=== PATIENT | female | born 1955 | race Caucasian/White ===

== ENCOUNTER 2020-06-19 02:00 | Outpatient (CLI) | payer MEDICARE, SELFPAY ==
[2020-06-19 17:58] LABS: SARS-CoV-2 RNA PCR Negative
== END 2020-06-19 02:01 | disposition home or self-care (01) ==
LOC: ANHCOVIDDT 02:00
PROVIDERS: PCP Family Medicine; Visit Provider Internal Medicine Gastroenterology
DX: Z01.812 Encounter for preprocedural laboratory examination (principal); Z20.828 Contact with and (suspected) exposure to other viral communicable diseases
CPT/HCPCS: 87635; C9803; U0003

== ENCOUNTER 2020-06-22 01:49 | Day surgery (SDC) | payer MEDICARE, SELFPAY ==
[2020-06-16 12:14] VITALS: BMI 33.3
[2020-06-22 08:33] VITALS: BP 118/84; PULSE 92; RESP 18; TEMP 36.6; O2SAT 97
[2020-06-22] MEDS: LACTATED RINGERS 1,000 ML 150 ML IV CONT (08:37)
--- NOTE | 2020-06-22 09:02 | WPDGICN ---
Assessment and Plan Assessment and plan (1) Encounter for screening colonoscopy: Code(s): Z12.11 - Encounter for screening for malignant neoplasm of colon Status: Acute Assessment and Plan: Plan is for screening colonoscopy is been 10 years since last exam. High-fiber diet advised. Further recommendations will be given after endoscopy. GI Consult Note Consult date/time: 06/22/20 09:02 HPI: Chantal Darnell is a 65 year old female seen in evaluation at the request of Dr Norma Galvez. Patient presents for screening colonoscopy. Her current weight appetite bowel movements are normal. She denies abdominal pain. Family history is noncontributory. Her last colonoscopy was 10 years ago. [facility] Social History Social History (Updated 06/10/20 @ 09:24 by Maria Isabel Ty [facility]) Smoking packs per day: 1 Smoking cigarettes per day: 20.0 Years smoked: 35 Smoking pack-years: 35.00 Smoking status: Former smoker Tobacco type: cigarettes Alcohol intake: never Substance use: never Substance use type: does not use Living arrangements: with family Spiritual care concerns: No Meds Home Medications and Allergies Home Medications Medication Instructions Recorded Confirmed Type atorvastatin 20 mg tablet 20 mg PO DAILY #30 tablet 03/03/20 06/22/20 Rx escitalopram oxalate 20 mg tablet 20 mg PO DAILY #90 tablet 03/08/20 06/22/20 Rx naproxen 500 mg tablet,delayed 500 mg PO BID #180 tablet 03/08/20 06/22/20 Rx release cyclobenzaprine 10 mg tablet 10 mg PO TID PRN #90 tablet 04/15/20 06/22/20 Rx zolpidem 10 mg tablet 10 mg PO .QHS #30 tablet 04/23/20 06/22/20 Rx Allergies Allergy/AdvReac Type Severity Reaction Status Date / Time Sulfa (Sulfonamide Allergy Unknown Skin Verified 06/16/20 12:28 Antibiotics) Reaction Vital Signs Vital Signs - 24 hr 06/22/20 08:33 Temperature 97.8 F Pulse Rate 92 Respiratory Rate 18 Blood Pressure 118/84 Pulse Oximetry 97 Exam Narrative: Exam Narrative: Physical exam reveals patient to be alert. Vital signs stable. HEENT exam unremarkable. Lungs are clear to auscultation and percussion. Heart is without murmur or extra sounds. Abdominal exam bowel sounds are present soft nontender with no organomegaly. Digital external rectal exam is normal.
--- NOTE | 2020-06-22 09:15 | P.PNAN_ITS ---
Anes - Initial Pre Proc Eval Procedure: Operation Date: 06/22/20 09:30 Proposed Procedures p Screening Colonoscopy - Stoney Pedersen MD Date/Time: 06/22/20 09:15 Surgeon: Stoney Pedersen MD Pre Op Diagnosis: neoplasm screening Patient Data Age: 65 Gender: F Height: 5 ft 5 in Weight: 94.6 kg Last Vital Signs Temp 97.8 F 06/22/20 08:33 Pulse 92 06/22/20 08:33 Resp 18 06/22/20 08:33 BP 118/84 06/22/20 08:33 Pulse Ox 97 06/22/20 08:33 Allergies Allergy/AdvReac Type Severity Reaction Status Date / Time Sulfa (Sulfonamide Allergy Unknown Skin Verified 06/16/20 12:28 Antibiotics) Reaction Home Medications Medication Instructions Recorded Confirmed Type atorvastatin 20 mg tablet 20 mg PO DAILY #30 tablet 03/03/20 06/22/20 Rx escitalopram oxalate 20 mg tablet 20 mg PO DAILY #90 tablet 03/08/20 06/22/20 Rx naproxen 500 mg tablet,delayed 500 mg PO BID #180 tablet 03/08/20 06/22/20 Rx release cyclobenzaprine 10 mg tablet 10 mg PO TID PRN #90 tablet 04/15/20 06/22/20 Rx zolpidem 10 mg tablet 10 mg PO .QHS #30 tablet 04/23/20 06/22/20 Rx Patient hx anesthesia problems: none Family hx anesthesia problems: none PMFSH Past Medical History Medical History (Updated 06/22/20 @ 09:14 by Paulo Gregg MD) Major depressive disorder, recurrent, moderate Mixed hyperlipidemia Surgical History Surgical History H/O adenoidectomy H/O breast augmentation H/O colonoscopy H/O hemorrhoidectomy H/O hernia repair History of appendectomy History of bilateral tubal ligation History of tonsillectomy History of uterine suspension procedure Social History Social History (Updated 06/10/20 @ 09:24 by Maria Isabel Ty CMA) Smoking packs per day: 1 Smoking cigarettes per day: 20.0 Years smoked: 35 Smoking pack-years: 35.00 Smoking status: Former smoker Tobacco type: cigarettes Alcohol intake: never Substance use: never Substance use type: does not use Living arrangements: with family Spiritual care concerns: No Anes - Eval Final PreProcedure Day of Procedure 06/22/20 09:15 Patient weight: overweight Heart: regular rate and rhythm Lungs: clear to auscultation Airway: Mallampati scale class II Neurological: alert and oriented Last oral intake: >/= 8 hours ASA classification: II Emergent: no Anesthetic plan: proceed Anesthesia type and monitoring: general GIVS and standard monitoring Informed Consent: The patient's anesthetic plan and its attendant risks and benefits were discussed with the patient/family/POA. Questions were solicited and answers provided to the satisfaction of the patient/family/POA.
[2020-06-22 09:56] VITALS: BP 120/76; PULSE 73; RESP 16; O2SAT 100
[2020-06-22 10:06] VITALS: BP 126/83; PULSE 70; RESP 16; O2SAT 98
[2020-06-22 10:16] VITALS: BP 132/77; PULSE 70; RESP 17; O2SAT 100
== END 2020-06-22 10:39 | disposition home or self-care (01) ==
PROVIDERS: PCP Family Medicine; Visit Provider Internal Medicine Gastroenterology
PROC: 0DJD8ZZ Inspection of Lower Intestinal Tract, Via Natural or Artificial Opening Endoscopic (ICD-10-PCS; CPT 45378; principal; 2020-06-22 09:30)
DX: Z12.11 Encounter for screening for malignant neoplasm of colon (principal); K63.5 Polyp of colon; K64.8 Other hemorrhoids; F32.9 Major depressive disorder, single episode, unspecified; E78.2 Mixed hyperlipidemia; K57.30 Diverticulosis of large intestine without perforation or abscess without bleeding; Z87.891 Personal history of nicotine dependence
CPT/HCPCS: 45385; 88305; J2704; J7120

== ENCOUNTER → 2021-01-05 10:56 | Outpatient (CLI) | payer MEDICARE, SELFPAY ==
--- NOTE | ~2021-01-05 | DEXA_ITS ---
Bone Density Report Name: Chantal Darnell Age: 65 Sex: Female Ethnicity: White Date of : 1955 Indication: postmenopausal; screening for osteoporosis; height loss; Referring Provider: Cindy Ramirze Study: Bone densitometry was performed. Exam Date: January 05, 2021 Accession number: [id number] Bone Density: Region BMD T-score Z-score Classification AP Spine (L1-L4) 0.874 -1.6 0.2 Osteopenia Femoral Neck (Left) 0.818 -0.3 1.3 Normal Total Hip (Left) 0.920 -0.2 1.1 Normal Femoral Neck (Right) 0.826 -0.2 1.3 Normal Total Hip (Right) 0.920 -0.2 1.1 Normal Total Hip Mean 0.920 -0.2 1.1 Normal World Health Organization criteria for BMD impression classify patients as: Normal (T-score at or above -1.0), Osteopenia (T-score between -1.0 and -2.5), or Osteoporosis (T-score at or below -2.5). 10-year Fracture Risk(1): Major Osteoporotic Fracture 6.5% Hip Fracture 0.3% Reported Risk Factors: [place] (), Neck BMD=0.826, BMI=36.4 (1) FRAX(R) Version 3.08. Fracture probability calculated for an untreated patient. Fracture probability may be lower if the patient has received treatment. Clinical Information Provided by Patient: Has used the following medications: Calcium Patient maximum height was 65 Menopause Age: 40 No regular weight bearing exercise Drinks caffeinated beverages Onset of menses at age 13 Number of children 3 Impression: The patient has low bone mass, based on the Total Spine T-score. The patient has an estimated ten-year risk of hip fracture of 0.3% and an estimated ten-year risk of major fracture of 6.5%, based on the WHO FRAX algorithm. Discussion: BONE DENSITY IS LOW AT ONE OR MORE SKELETAL SITES. This patient's lowest T-score is low at one or more skeletal sites. It meets the World Health Organization's (WHO) criteria for ?low bone mass? (T-score between -1.0 and -2.5). The patient's 10-year risk of fracture as calculated by FRAX is less than the threshold where pharmacological therapy is recommended by the National Osteoporosis Foundation (NOF). However, all treatment decisions require clinical judgment and consideration of individual patient factors, including patient preferences, comorbidities, previous drug use, risk factors not captured in the FRAX model (e.g., frailty, falls, vitamin D deficiency, increased bone turnover, interval significant decline in bone density) and possible under or overestimation of fracture risk by FRAX. The patient should follow a healthful lifestyle (good nutrition with adequate calcium and vitamin D, and appropriate weight-bearing exercise). Follow-Up: Consider repeating this study in 2 to 3 years to reassess this patient's status, or sooner if there is some new clinical indication. Reported by: [facility] on 01/05/2021 11:20:00
== END ==
PROVIDERS: PCP Family Medicine; Visit Provider Physician Assistant
DX: Z78.0 Asymptomatic menopausal state (principal); M85.88 Other specified disorders of bone density and structure, other site
CPT/HCPCS: 77080

== ENCOUNTER 2021-02-10 08:28 | Outpatient (CLI) | payer MEDICARE, SELFPAY ==
--- NOTE | ~2021-02-10 | MR_ITS ---
EXAMINATION: MR knee LT wo con DATE: 02/10/2021 09:30 INDICATION: Chronic left knee pain and swelling. Osteoarthritis. TECHNIQUE: Magnetic resonance imaging (MRI) of the left knee was performed without intravenous contra st. Sequences included coronal PD-weighted FSE, coronal PD-weighted FS FSE, sagittal T2-weighted FSE , sagittal PD-weighted FS FSE and axial PD weighted fat saturated FSE. COMPARISON: Left knee radiographs dated 01/04/2021 FINDINGS: Medial compartment: Complex tear of the body and posterior horn of the medial meniscus. Extensive full and near full-thic kness cartilage loss involving significant portion of the medial half of the medial tibial plateau an d majority of the weightbearing medial femoral condyle relatively sparing the posterior most portions of the articular cartilage. Extensive underlying subarticular edema. Mild scattered subarticular cys tic change at the medial side of the medial tibial plateau and at the central weightbearing medial fe moral condyle. Moderate-sized marginal osteophytes are present along the medial femoral condyle. Lateral compartment: Lateral meniscal tear, complex at the anterior horn transitioning to a longitudinal tear plane at the meniscal body extending obliquely to contact the superior articular surface anteriorly and then cros sing the inner free edge to involve the inferior articular surface more posteriorly. There is additio nal more vertically oriented tear involving the inner third of the posterior horn with truncation of the anterior free edge. There is full/near full-thickness cartilage loss along the intercondylar yimi ence of the medial side of the lateral tibial plateau. Posterior predominant partial thickness cartil age loss with scattered mild chondral surface regular date along the weightbearing lateral femoral co ndyle. Patellofemoral compartment: Full/near full-thickness chondral ulceration with underlying minimal cortical irregularity and scatte red subarticular edema at the medial patellar facet. Additional deep chondral fissuring at the patell ar apical ridge with minimal underlying subarticular edema and at the medial most aspect of the later al patellar facet. Partial-thickness chondral ulceration at the cephalad aspect of the lateral trochl ea. Partial-thickness chondral fissuring at the inferior aspect of the medial trochlea and trochlear groove. Ligaments and tendons: Anterior and posterior cruciate ligaments are normal. The medial collateral ligament and fibular estela ateral ligament complex are normal. Mild tendinopathy at the proximal and distal aspects of the christopher lar tendon. Quadriceps tendon is normal. The visualized medial and lateral hamstring tendons as well as the iliotibial band are normal. Fluid: Small to moderate-sized left knee joint effusion with scattered synovitis at the suprapatellar pouch and posterior recesses of the knee. No loose osteochondral bodies identified. Osseous/other: Marrow signal is normal aside from the previous noted degenerative subarticular changes. No fracture or abnormal marrow replacing process. IMPRESSION: 1. Complex tears of the medial and lateral menisci. 2. Tricompartmental osteoarthritis, severe with extensive high-grade chondral malacia in the medial c ompartment and mild in the lateral and patellofemoral compartments with additional high-grade patella r chondromalacia. 3. Likely reactive small to moderate-sized left knee joint effusion. 4. Mild patellar tendinopathy. Reviewed, dictated and finalized at location A. IMPRESSION: 1. Complex tears of the medial and lateral menisci. 2. Tricompartmental osteoarthritis, severe with extensive high-grade chondral m alacia in the medial compartment and mild in the lateral and christopher
== END 2021-02-10 08:29 | disposition home or self-care (01) ==
PROVIDERS: PCP Family Medicine; Visit Provider Orthopaedic Surgery
DX: M17.12 Unilateral primary osteoarthritis, left knee (principal); S83.282A Other tear of lateral meniscus, current injury, left knee, initial encounter; S83.242A Other tear of medial meniscus, current injury, left knee, initial encounter; M25.462 Effusion, left knee
CPT/HCPCS: 73721

== ENCOUNTER 2021-04-06 07:44 | Outpatient (CLI) | payer MEDICARE, SELFPAY ==
--- NOTE | 2021-04-06 08:51 | ECG_ITS ---
Measurements Intervals [place] Rate: 80 P: 33 [place]: 180 QRS: -41 QRSD: 106 T: 13 QT: 398 QTc: 461 Interpretive Statements SINUS RHYTHM LEFT AXIS DEVIATION LOW QRS VOLTAGE IN PRECORDIAL LEADS INCOMPLETE RIGHT BUNDLE BRANCH BLOCK VOLTAGE CRITERIA FOR LVH POOR R WAVE PROGRESSION, ANTERIOR LEADS BORDERLINE T WAVE ABNORMALITY- INFERIOR LEADS BASELINE ARTIFACT- I, II, AVR, AVL BORDERLINE ECG Electronically Signed On 04-06-2021 9:04:14 CDT by Navid Nunes D.O.
[2021-04-06 09:31] LABS: Basophils Absolute Auto 0.1 K/mm3 (0.0-0.1); Basophils Percent Auto 0.7 % (0.2-1.2); Eosinophils Absolute Auto 0.2 K/mm3 (0-0.3); Eosinophils Percent Auto 2.2 % (0-4.4); Hematocrit 41.7 % (37.0-47.0); Hemoglobin 13.8 g/dL (12.0-15.0); Immature Granulocyte Absolute 0.01 K/mm3 (0.00-0.031); Immature Granulocyte Percent A 0.1 % (0-0.5); Lymphocytes Absolute Auto 2.49 K/mm3 (0.9-3.2); Lymphocytes Percent Auto 34.3 % (18.3-44.2); Mean Corpuscular HGB Conc 33.1 g/dl (32-36); Mean Corpuscular Hemoglobin 28.8 pg (26-34); Mean Corpuscular Volume 87.1 fl (80-100); Mean Platelet Volume 10.1 fl (7.4-10.4); Monocytes Absolute Auto 0.6 K/mm3 (0.1-0.6); Monocytes Percent Auto 8.1 % (2.6-8.5); Neutrophils Percent Auto 54.6 % (45.5-73.1); Platelet Count Result 308 k/mm3 (150-375); Red Blood Count 4.79 M/mm3 (4.2-5.4); Red Cell Distribution Width 13.4 % (11.5-14.5); White Blood Count 7.3 K/mm3 (4.5-10.0)
[2021-04-06 09:45] LABS: Estimated Glomerular Filt Rate > 60; Glucose 100 mg/dL (65-110)
[2021-04-06 09:48] LABS: Urine Cotinine NEGATIVE
[2021-04-06 09:57] LABS: Hemoglobin A1C 5.6 % (<5.7)
== END 2021-04-06 07:45 | disposition home or self-care (01) ==
LOC: ANHSURGERY 07:49
PROVIDERS: PCP Family Medicine; Visit Provider Orthopaedic Surgery
DX: Z01.818 Encounter for other preprocedural examination (principal); M17.12 Unilateral primary osteoarthritis, left knee; I45.10 Unspecified right bundle-branch block; Z79.899 Other long term (current) drug therapy
CPT/HCPCS: 80307; 82040; 82565; 82947; 83036; 85025; 86850; 86900; 86901; 87081; 93005

== ENCOUNTER 2021-04-08 09:01 | Outpatient (CLI) | payer MEDICARE, SELFPAY ==
--- NOTE | ~2021-04-08 | NM_ITS ---
EXAMINATION: NM ange stress w perfusion DATE: 04/08/2021 11:31 INDICATION: Encounter for preprocedural examination. TECHNIQUE: Rest images were obtained following intravenous administration of 9.6 mCi Tc99m tetrofosmi n (Myoview). The patient was infused intravenously with Lexiscan (Regadenoson). Then, 30 mCi Tc99m te trofosmin (Myoview) was administered intravenously, and stress images were obtained. Data was reconst ructed into short axis and horizontal and vertical long axis SPECT images. Gated SPECT images were al so obtained. COMPARISON: None. FINDINGS: There is no definite reversible or fixed perfusion abnormality to suggest ischemia or infar ction. There is normal left ventricular chamber size, wall motion and ejection fraction. Left ventr icular ejection fraction measures >70%. IMPRESSION: 1. Normal myocardial perfusion at rest and during stress. 2. Left ventricular ejection fraction measuring >70%. Reviewed, dictated and finalized at location A.
--- NOTE | 2021-04-08 09:16 | EST_ITS ---
Patient Info Name: Chantal Darnell Age: 66 years : 1955 Gender: Female Ht: 64 in Wt: 208 lbs BSA: 2.11 m2 Exam Date: 04/08/2021 10:25 AM Exam Location: [facility] Stress Patient Status: Outpatient Admit Date: 04/08/2021 Staff Ordering Physician: Norma Galvez DO Attending Provider: Norma Galvez DO Exercise Technologist: Marcy Ng RDCS Exercise Physician: Navid Nunes DO Exam Type: CA stress ange w NM Study Info A regadenoson stress test was performed. Summary 1. 1. Negative lexiscan stress test for ischemic ST changes by ECG criteria. 2. 2. Stable hemodynamics throughout the test. 3. 3. Nuclear scan to follow and will be reported separately. Please correlate with it. 4. 4. Patient informed of the above results. Protocol: Lexiscan Stress ECG Details Stage: REST Duration (min): 0 min : 49 sec HR (bpm): 79 SBP (mmHg): 129 DBP (mmHg): 87 Stage: REST Duration (min): 8 min : 33 sec HR (bpm): 79 SBP (mmHg): 129 DBP (mmHg): 87 Stage: STAGE 1 Duration (min): 1 min : 0 sec HR (bpm): 92 SBP (mmHg): 136 DBP (mmHg): 93 Stage: RECOVERY Duration (min): 1 min : 0 sec HR (bpm): 95 SBP (mmHg): 140 DBP (mmHg): 88 Stage: RECOVERY Duration (min): 2 min : 0 sec HR (bpm): 92 SBP (mmHg): 140 DBP (mmHg): 88 Stage: RECOVERY Duration (min): 3 min : 0 sec HR (bpm): 87 SBP (mmHg): 121 DBP (mmHg): 88 Stage: RECOVERY Duration (min): 3 min : 3 sec HR (bpm): 87 SBP (mmHg): 121 DBP (mmHg): 88 Rest HR: 79 bpm Peak HR: 96 bpm Rest Sys BP: 129 mmHg Peak Sys BP: 140 mmHg Max Pred HR: 154 bpm % Max Pred HR: 62 % Target HR: 131 bpm Max RPP: 13,440 bpm*mmHg Termination Reason: Completed protocol Cardiac Symptoms: Shortness of breath Total Time: 1 min : 0 sec Rest [place] BP: 87 mmHg Peak [place] BP: 88 mmHg Total Dose: 0.4 mg Resting ECG Sinus rhythm, IRBBB, PRWP. Stress ECG No ST changes. Arrhythmias None. Report Signatures
== END 2021-04-08 09:02 | disposition home or self-care (01) ==
LOC: ANHCARD 09:05
PROVIDERS: PCP Family Medicine; Visit Provider Family Medicine
DX: Z01.810 Encounter for preprocedural cardiovascular examination (principal); R94.31 Abnormal electrocardiogram [ECG] [EKG]; I27.20 Pulmonary hypertension, unspecified
CPT/HCPCS: 78452; 93017; A9502; J2785

== ENCOUNTER 2021-04-18 00:57 | Day surgery (SDC) | payer MEDICARE, SELFPAY ==
[2021-04-06 08:05] VITALS: BMI 35.2
[2021-04-18] VITALS (17 sets, daily range): BP systolic 105–140; BP diastolic 72–86; PULSE 71–92; RESP 11–18; TEMP 36.1–36.6; O2SAT 92–99
--- NOTE | ~2021-04-18 | XR_ITS ---
EXAMINATION: XR knee LT 2V DATE: 04/18/2021 14:41 INDICATION: Postoperative evaluation following left total knee arthroplasty. TECHNIQUE: Anteroposterior and lateral views of the left knee were obtained. COMPARISON: None. FINDINGS: Left total knee arthroplasty with patellar resurfacing appears well seated and in near anatomic align ment. No fractures identified. Expected postoperative subcutaneous, intramedullary and intra-articul ar gas. IMPRESSION: 1. Left total knee arthroplasty, negative for postoperative purposes. Reviewed, dictated and finalized at location A.
--- NOTE | 2021-04-18 09:26 | WPDANESEPPF ---
Anes - Initial Pre Proc Eval Procedure: Operation Date: 04/18/21 12:00 Proposed Procedures p Left Total Knee Arthroplasty - Daren Mahoney MD Date/Time: 04/18/21 09:26 Surgeon: Daren Mahoney MD Pre Op Diagnosis: OA left knee Patient Data Age: 66 Gender: F Height: 1.64 m Weight: 94.5 kg Allergies Allergy/AdvReac Type Severity Reaction Status Date / Time Sulfa (Sulfonamide Allergy Unknown Skin Verified 04/06/21 07:57 Antibiotics) Reaction/RASH Home Medications Medication Instructions Recorded Confirmed Type calcium carbonate 600 mg calcium 600 mg PO DAILY 12/20/20 04/18/21 History (1,500 mg) tablet blbugkhqepvw-nrqzslby-jrvjycr-folic 1 tablet PO DAILY 12/20/20 04/18/21 History acid 400 mcg-vit K1 20 mcg tablet zolpidem 10 mg tablet 10 mg PO QHS #30 tablet 12/21/20 04/18/21 Rx cholecalciferol (vitamin D3) 50 mcg PO DAILY 04/06/21 04/18/21 History cyclobenzaprine 10 mg PO TID 04/06/21 04/18/21 History escitalopram oxalate 20 mg PO QAM 04/06/21 04/18/21 History atorvastatin 20 mg tablet See Rx Instructions .ROUTE 04/12/21 04/18/21 Rx .COMPLEX #90 tablet mupirocin 2 % topical ointment 1 applic TOPICAL BID #22 g 04/12/21 04/18/21 Rx rivaroxaban 10 mg tablet 10 mg PO DAILY #14 tablet 04/12/21 04/18/21 Rx ECG: Date of Service: 04/06/21 Procedure(s): CA 12 lead EKG Accession Number(s): [id number] cc: ~ Measurements Intervals [place] Rate: 80 P: 33 [place]: 180 QRS: -41 QRSD: 106 T: 13 QT: 398 QTc: 461 Interpretive Statements SINUS RHYTHM LEFT AXIS DEVIATION LOW QRS VOLTAGE IN PRECORDIAL LEADS INCOMPLETE RIGHT BUNDLE BRANCH BLOCK VOLTAGE CRITERIA FOR LVH POOR R WAVE PROGRESSION, ANTERIOR LEADS BORDERLINE T WAVE ABNORMALITY- INFERIOR LEADS BASELINE ARTIFACT- I, II, AVR, AVL BORDERLINE ECG Electronically Signed On 04-06-2021 9:04:14 CDT by Navid Nunes D.O. Other Studies: Exam Date: 04/08/2021 10:25 AM Exam Type: CA stress ange w NM Study Info A regadenoson stress test was performed. Summary 1. 1. Negative lexiscan stress test for ischemic ST changes by ECG criteria. 2. 2. Stable hemodynamics throughout the test. 3. 3. Nuclear scan to follow and will be reported separately. Please correlate with it. 4. 4. Patient informed of the above results. Patient hx anesthesia problems: none Family hx anesthesia problems: none [facility] Past Medical History Medical History (Updated 04/18/21 @ 09:27 by Nba Harding MD) Cataract (~2015) Chronic midline low back pain without sciatica Hepatitis C antibody test negative (09/16/19) Major depressive disorder, recurrent, moderate Migraine Mixed hyperlipidemia Obesity Osteoarthritis of left knee Pulmonary hypertension Surgical History Surgical History H/O adenoidectomy (~1978) H/O breast augmentation (~1989) H/O colonoscopy H/O hemorrhoidectomy H/O hernia repair (~1986) History of appendectomy (~1978) History of bilateral tubal ligation History of tonsillectomy (~1973) History of uterine suspension procedure (~1985) Family History Family History Father Diabetes mellitus Cerebrovascular accident Grandparent Family history of glaucoma Mother Family history of elevated blood lipids Family history of malignant neoplasm Family history of pancreatic cancer Sibling Family history of elevated blood lipids Social History Social History Smoking packs per day: 1 Smoking cigarettes per day: 20.0 Years smoked: 30 Smoking pack-ye
--- NOTE | 2021-04-18 10:21 | WPDHPUPDATE1 ---
History and Physical Update Update Date/Time: 04/18/21 10:21 History and Physical has been reviewed, including an updated exam of the patient. There are NO changes in the patient's condition. Risks, benefits, and alternatives have been discussed and questions answered. Patient agrees to proceed with procedure.
[2021-04-18] MEDS: ACETAMINOPHEN 500 MG TABLET 1000 MG PO ×2 (10:27→19:10)
[2021-04-18] MEDS: LACTATED RINGERS 1,000 ML 30 ML IV CONT ×2 (10:42→15:01)
--- NOTE | 2021-04-18 11:05 | WPDANESPNB ---
Anes - Peripheral Nerve Block Date/Time: 04/18/21 11:05 I have discussed with the patient/family/POA the placement of a peripheral nerve block for post-operative pain management, including associated risks, benefits, complications, and side effects. Alternative methods of post-operative analgesia were detailed. Questions were solicited and answers provided to the satisfaction of the patient/family/POA. Time-Out: A pre-procedural Time-Out was completed immediately before starting the procedure and confirmed: Patient Identification, Site, Procedure, Patient Position and the Availability of Requisite Equipment. Clinical Indications: Acute post-operative pain management requested by the operative surgeon. Nerve Block Insertion Note Anes-nerve block: femoral (20cc) left Patient position: supine Skin prep: chlorhexidine Needle: 22 gauge, stimulating, insulated echogenic needle. Needle length: 80 mm Technique: ultrasound (in plane) Injectate: bupivacaine 0.5% with epi 5 mcg/ml (20cc) Observations: tolerated well Complications: none Procedure start time:: 1055 Procedure end time:: 1100
[2021-04-18] MEDS: TRANEXAMIC ACID 1,000MG/ISO100 1,000 MG/100 ML BAG 200 MG IVPB (11:23)
[2021-04-18] MEDS: ceFAZolin 2 GM/D5W 50 ML 2 GM/50 ML BAG IVPB ×2 (11:47→21:30)
[2021-04-18] MEDS: BUPIVACAINE/EPINEPHRINE 0.25% 10 ML VIAL 60 ML INFILTRATE (12:55)
--- NOTE | 2021-04-18 14:09 | W.PM.PROC2 ---
Procedure Note - Detailed Date of Procedure 04/18/21 Pre-op Diagnosis OA left knee Post-op Diagnosis same Procedure Performed Left total knee replacement Surgeon Daren Mahoney MD [employer] Worker Ofelia Alfonso Anesthesia general and regional ( femoral nerve block) Indications see H&P Description of Procedure The patient was identified and proper site identified. In the preop holding area the anesthesia team performed a left femoral nerve block after which the patient was taken to the operating room and transferred to the OR table positioning supine taking care to pad the torso and extremities. After general anesthetic induction and intubation a nonsterile tourniquet was placed high on the left thigh. The left lower extremity was prepped and draped in the usual sterile fashion. The extremity was exsanguinated and with the knee flexed tourniquet was inflated to 300 mmHg remaining up for approximately 64 minutes. An anterior midline incision was made and a modified medial parapatellar approach was used. Infra and suprapatellar fat pads were excised. Patella was resected leaving 15 mm thickness and prepared for the round three peg component. Using the intramedullary guide the distal femur was cut in the proper orientation for the size 67.5 femoral component. Using the extramedullary guide the tibia was cut perpendicular to the long axis protecting collateral ligaments and popliteal structures. It was sized to a 71. Flexion and extension gaps were balanced. Trial reduction was undertaken and the weight-bearing line was noted to passed through the center of the joint. Proximal tibia was drilled and punched in the proper orientation for the real component. Trial components were removed. The bone surfaces were washed with pulsatile lavage and dried. The real components were cemented simultaneously. The knee was held in extension and the patella held clamped until the cement had cured. Excess cement was removed from the joint. After trialing it was determined that the 12 mm insert gave full range of motion from 0-120 degrees of flexion and the patella tracked in the femoral groove with no lift-off. After final lavage the joint the real 12 E poly insert was placed and secured with a locking bar. A Betadine and saline wash was placed into the wound and allowed to sit for approximately 3 minutes and then evacuated. Periarticular tissues were infiltrated with 60 cc of the arthroplasty solution. Surgicel powder was used in the wound for hemostasis as well. The extensor mechanism was repaired with #2 Vicryl suture and 0 looped PDS suture. Subcu was reapproximated with three 0 Monocryl with to a strata fix and tissue adhesive for the skin. A sterile dressing was applied. She tolerated the procedure well, was awakened and extubated, transferred to the bed and was taken to recovery area in stable condition. There were no known intraoperative complications. Perioperative antibiotics were administered. Estimated Blood Loss 200 Tourniquet Time 64 Drains No Packing No Pathology none sent Complications No immediate complications Condition stable Disposition PACU
[2021-04-18] MEDS: fentaNYL CITRATE INJ (*CRX) 100 MCG/2 ML VIAL 25 MCG IV PUSH ×8 (14:37→15:25)
[2021-04-18] MEDS: HYDROmorphone HCL INJ (*CRX) 1 MG/ML SYR 0.25 MG IV PUSH ×4 (15:32→16:17)
--- NOTE | 2021-04-18 16:44 | PC.NURSE ---
This patient, Chantal Darnell, was admitted to Medical Room 254-01. Patient/family oriented to hospital policies and general routines including ID bracelet, bed and alarms, visiting hours, pain management, procedures, bathroom and other care routines, personal items, smoking policy, room service/diet, and visiting hours. Information on how to activate the Rapid Response Team has been discussed. Patient/Family are encouraged to report perceived risks to care and to ask questions if they do not understand what they are told or what they should do.
[2021-04-18] MEDS: DOCUSATE SODIUM 100 MG CAPSULE PO (18:04)
[2021-04-18] MEDS: CYCLOBENZAPRINE HCL 10 MG TABLET PO (18:04)
[2021-04-18] MEDS: oxyCODONE HCL (*CRX) 5 MG TAB IR PO ×3 (18:05→22:44)
[2021-04-18] MEDS: ZOLPIDEM TARTRATE (*CRX) 5 MG TABLET 10 MG PO (21:30)
[2021-04-19] VITALS (8 sets, daily range): BP systolic 98–128; BP diastolic 59–71; PULSE 88–96; RESP 12–20; TEMP 35.9–36.9; O2SAT 90–98
[2021-04-19] MEDS: oxyCODONE HCL (*CRX) 5 MG TAB IR PO ×9 (00:51→20:43)
[2021-04-19] MEDS: ACETAMINOPHEN 500 MG TABLET 1000 MG PO ×3 (03:33→20:43)
[2021-04-19] MEDS: ceFAZolin 2 GM/D5W 50 ML 2 GM/50 ML BAG IVPB ×2 (03:33→12:20)
[2021-04-19 05:56] LABS: Basophils Percent Auto 0.1 % (0.2-1.2); Hematocrit 35.2 % (37.0-47.0); Hemoglobin 11.6 g/dL (12.0-15.0); Immature Granulocyte Absolute 0.04 K/mm3 (0.00-0.031); Immature Granulocyte Percent A 0.3 % (0-0.5); Lymphocytes Absolute Auto 1.37 K/mm3 (0.9-3.2); Lymphocytes Percent Auto 10.8 % (18.3-44.2); Mean Platelet Volume 9.9 fl (7.4-10.4); Monocytes Absolute Auto 1.4 K/mm3 (0.1-0.6); Monocytes Percent Auto 11.3 % (2.6-8.5); Neutrophils Absolute Auto 9.8 K/mm3 (1.3-6.7); Neutrophils Percent Auto 77.5 % (45.5-73.1); Platelet Count Result 268 k/mm3 (150-375); Red Cell Distribution Width 13.2 % (11.5-14.5); White Blood Count 12.7 K/mm3 (4.5-10.0)
[2021-04-19 05:58] LABS: Anion Gap 8 mmol/L (8-16); Blood Urea Nitrogen 7 mg/dL (7-17); Calcium 8.9 mg/dL (8.4-10.2); Carbon Dioxide 25 mmol/L (22-30); Chloride 101 mmol/L (98-107); Estimated CRCL calculation 87 ml/min; Estimated Glomerular Filt Rate > 60; Glucose 121 mg/dL (65-110); Potassium 3.8 mmol/L (3.4-5.0); Sodium 134 mmol/L (137-145)
--- NOTE | 2021-04-19 07:31 | PM.DS ---
DS: Admitting Diagnosis Admitting Diagnosis osteoarthritis left knee DS: Discharge Diagnosis Discharge Diagnosis (1) History of left knee replacement: Code(s): Z96.652 - Presence of left artificial knee joint Status: Resolved Assessment and Plan: plan discharge home today after second therapy. Follow up two weeks. DS: Summary Hospital Course Reason for hospitalization: Observation after outpatient procedure. Hospital Course: Following the patient's surgery she was admitted to the floor for observation. She is going to be discharged home today with planned follow-up in two weeks. Surgery discussed and instructions reviewed. Status at Discharge Functional status at discharge: uses cane/walker Overall status at discharge: patient is not back to baseline Time Spent with Patient Time attestation: Total time spent providing and/or coordinating discharge services: Exam Const: General: cooperative, no acute distress and alert Nutritional Appearance: other Orientation/consciousness: patient oriented x3 Limitations: no limitations HENMT: Head: normal to inspection Ears: hearing grossly normal bilaterally Face and sinus: face symmetric Mouth: Yes moist mucous membranes Teeth and gingiva: fair dentition Eyes: Alignment and Position: alignment normal and position normal Sclera: sclerae normal Neck: Neck: normal visual inspection and nontender Chest: Chest palpation & inspection: normal inspection of the chest Resp: Effort & Inspection: normal respiratory effort and able to speak in complete sentences GI: Inspection: other ( Nontender, nondistended) Skin: General skin exam: normal color Rashes: no rashes Neuro: General: patient oriented x3 Cognition (Neuro): normal cognition Speech: normal speech Gait exam (Neuro): Other gait observations present Extrem: General: normal to inspection and other Other: Exam of the left knee shows dry dressing. Mild swelling but no bruising. Neurovascular status grossly intact to the left lower extremity. Calves negative. Psych: Appearance: grossly normal Mental Status: mental status grossly normal DS: Data Data Completed and Pending Labs on day of discharge: Labs from last 24 hours 04/19/21 04/19/21 05:32 05:32 WBC 12.7 H RBC 4.00 L Hgb 11.6 L Hct 35.2 L MCV 88.0 MCH 29.0 MCHC 33.0 RDW 13.2 Plt Count 268 MPV 9.9 Immature Gran % (Auto) 0.3 Neut % (Auto) 77.5 H Lymph % (Auto) 10.8 L [place] % (Auto) 11.3 H Eos % (Auto) 0.0 Baso % (Auto) 0.1 L Lymph # (Auto) 1.37 [place] # (Auto) 1.4 H Eos # (Auto) 0.0 Baso # (Auto) 0.0 Abs Immat Gran (auto) 0.04 H Absolute Neuts (auto) 9.8 H Absolute Nucleated RBC 0.0 Nucleated RBC % 0.0 Sodium 134 L Potassium 3.8 Chloride 101 Carbon Dioxide 25 Anion Gap 8 BUN 7 Creatinine 0.60 L Estim Creat Clear Calc 87 Estimated GFR > 60 Glucose 121 H Calcium 8.9 Discharge Plan Discharge Patient Disposition: Home, Self-Care Discharge Instructions: 3 times daily for 20 minutes each time, reclining in bed with ice packs over the incision and a pillow underneath the calf of the affected leg, not under the knee. Your wound is glued so it is okay to get into the shower and get the wound wet in two days. Be sure to read through all the information that came from a my office and the hospital. Most of the answers you will need can be found that material. Call the office with any questions that you cannot find answers to, or concerns you may have. After the Xarelto is completed, start taking one coated 325 mg aspirin daily and do this for four more weeks. Please call [facility] at as soon as possible to verify your follow-up appointment to be seen in 2 weeks. Also, call the office with any orthopedic/surgical related questions prior to follow-up. Be sure to get up and move around several times daily but do not overdo it. Del
--- NOTE | 2021-04-19 07:41 | P.PNAN_ITS ---
Anes - Prog Note Post-Op Date/Time: 04/19/21 07:41 Cardiovascular status: normal Respiratory status: normal Airway patency: baseline Mental status: baseline Post-Op hydration status: normal Vital Signs: Last Vital Signs Temp 36.7 C 04/19/21 06:14 Pulse 96 04/19/21 06:14 Resp 18 04/19/21 06:14 BP 101/59 L 04/19/21 06:14 Pulse Ox 96 04/19/21 06:14 Pain Score (VAS): 09/26 I/O: Intake & Output 04/18/21 04/18/21 04/19/21 15:59 23:59 07:59 Intake Total 1150 540 50 Balance 1150 540 50 Laboratory Tests 04/19/21 05:32 04/19/21 05:32 04/19/21 04/19/21 05:32 05:32 WBC 12.7 H RBC 4.00 L Hgb 11.6 L Hct 35.2 L MCV 88.0 MCH 29.0 MCHC 33.0 RDW 13.2 Plt Count 268 MPV 9.9 Immature Gran % (Auto) 0.3 Neut % (Auto) 77.5 H Lymph % (Auto) 10.8 L [place] % (Auto) 11.3 H Eos % (Auto) 0.0 Baso % (Auto) 0.1 L Lymph # (Auto) 1.37 [place] # (Auto) 1.4 H Eos # (Auto) 0.0 Baso # (Auto) 0.0 Abs Immat Gran (auto) 0.04 H Absolute Neuts (auto) 9.8 H Absolute Nucleated RBC 0.0 Nucleated RBC % 0.0 Sodium 134 L Potassium 3.8 Chloride 101 Carbon Dioxide 25 Anion Gap 8 BUN 7 Creatinine 0.60 L Estim Creat Clear Calc 87 Estimated GFR > 60 Glucose 121 H Calcium 8.9 Post-procedural complaints: none Patient Feedback: Patient satisfied with anesthetic care.
[2021-04-19] MEDS: CALCIUM CARBONATE (OSCAL) 500 MG TABLET PO (09:20)
[2021-04-19] MEDS: ATORVASTATIN 20 MG TABLET PO (09:20)
[2021-04-19] MEDS: CHOLECALCIFEROL 1,000 UNITS TABLET 2000 UNITS PO (09:21)
[2021-04-19] MEDS: THERAPEUTIC MULTIVITAMINS/MINERALS TAB (*BKC) 1 TABLET PO (09:21)
[2021-04-19] MEDS: CYCLOBENZAPRINE HCL 10 MG TABLET PO ×3 (09:21→17:22)
[2021-04-19] MEDS: ESCITALOPRAM OXALATE 10 MG TABLET 20 MG PO (09:21)
[2021-04-19] MEDS: DOCUSATE SODIUM 100 MG CAPSULE PO ×2 (09:21→17:22)
[2021-04-19] MEDS: RIVAROXABAN 10 MG TABLET PO (12:57)
[2021-04-19] MEDS: ZOLPIDEM TARTRATE (*CRX) 5 MG TABLET 10 MG PO (20:43)
[2021-04-20] MEDS: oxyCODONE HCL (*CRX) 5 MG TAB IR PO ×4 (01:01→12:44)
[2021-04-20] MEDS: ACETAMINOPHEN 500 MG TABLET 1000 MG PO ×2 (02:53→10:00)
[2021-04-20 05:09] VITALS: BP 102/67; PULSE 64; RESP 20; TEMP 36.8; O2SAT 90
[2021-04-20] MEDS: CHOLECALCIFEROL 1,000 UNITS TABLET 2000 UNITS PO (08:26)
[2021-04-20] MEDS: THERAPEUTIC MULTIVITAMINS/MINERALS TAB (*BKC) 1 TABLET PO (08:26)
[2021-04-20] MEDS: CALCIUM CARBONATE (OSCAL) 500 MG TABLET PO (08:26)
[2021-04-20] MEDS: ATORVASTATIN 20 MG TABLET PO (08:26)
[2021-04-20] MEDS: ESCITALOPRAM OXALATE 10 MG TABLET 20 MG PO (08:27)
[2021-04-20] MEDS: CYCLOBENZAPRINE HCL 10 MG TABLET PO (08:27)
[2021-04-20] MEDS: DOCUSATE SODIUM 100 MG CAPSULE PO (08:27)
[2021-04-20 10:05] VITALS: BP 102/61; PULSE 91; RESP 14; TEMP 36.3; O2SAT 94
--- NOTE | 2021-04-20 11:31 | PM.PNORT ---
Progress Note: A&P Assessment and Plan (1) History of left knee replacement: Code(s): Z96.652 - Presence of left artificial knee joint Status: Resolved Assessment and Plan: Plan discharge home today. I think that she would benefit from some home health PT and so that will be arranged. Plan follow-up in two weeks as before. Please see yesterday's discharge summary for the remainder of the information. Subjective Subjective Date/Time Seen: 04/20/21 11:31 Post Op day: 2 Principal diagnosis: Status post left total knee replacement Interval history: Patient was struggling with therapy yesterday and was unable to go home. She was also having more issues with pain. She is doing better today. Exam Const: General: cooperative, comfortable and no acute distress Nutritional Appearance: well nourished Extrem: Other: Left knee incision dry. Minimal swelling and no bruising about the left knee. Neurovascular status unremarkable. Objective Data Vital Signs Vital Signs: Vital Signs - 24 hr 04/19/21 13:55 04/19/21 20:00 04/19/21 20:32 Temperature 97.7 F 96.7 F L Pulse Rate 90 88 88 Respiratory Rate 16 20 20 Blood Pressure 98/63 L 106/67 Pulse Oximetry 94 90 90 04/20/21 05:09 04/20/21 10:05 Temperature 98.2 F 97.4 F L Pulse Rate 64 91 Respiratory Rate 20 14 Blood Pressure 102/67 102/61 Pulse Oximetry 90 94 Intake/Output Intake/Output: Intake & Output 04/17/21 04/18/21 04/19/21 04/20/21 23:59 23:59 23:59 23:59 Intake Total 1690 / 1690 100 / 100 530 / 530 Balance 1690 / 1690 100 / 100 530 / 530 Meds/Results Medications: Active Medications Generic Name Dose Route Start Last Admin Trade Name Freq PRN Reason Stop Dose Admin Acetaminophen 1,000 mg 04/18/21 19:00 04/20/21 10:00 Acetaminophen 500 Mg Tablet PO 1,000 mg Q8H LOLY Administration Atorvastatin Calcium 20 mg 04/19/21 09:00 04/20/21 08:26 Atorvastatin 20 Mg Tablet PO 20 mg DAILY LOLY Administration Calcium Carbonate 500 mg 04/19/21 09:00 04/20/21 08:26 Calcium Carbonate (Oscal) 500 Mg Tablet PO 500 mg QAM LOLY Administration Cyclobenzaprine HCl 10 mg 04/18/21 17:00 04/20/21 08:27 Cyclobenzaprine Hcl 10 Mg Tablet PO 10 mg TID LOLY Administration Docusate Sodium 100 mg 04/18/21 17:00 04/20/21 08:27 Docusate Sodium 100 Mg Capsule PO 100 mg BID LOLY Administration Escitalopram Oxalate 20 mg 04/19/21 09:00 04/20/21 08:27 Escitalopram Oxalate 10 Mg Tablet PO 20 mg QAM LOLY Administration Multivitamins/Calcium 1 tablet 04/19/21 09:00 04/20/21 08:26 Therapeutic Multivitamins/Minerals Tab (*Bkc) PO 1 tablet DAILY LOLY Administration Naloxone HCl 0.1 mg 04/18/21 16:29 Naloxone Hcl 0.4 Mg/Ml Vial IV PUSH Q2M PRN Opiate Reversal Ondansetron HCl 4 mg 04/18/21 16:29 Ondansetron Inj 4 Mg/2 Ml Vial IV PUSH Q4H PRN Nausea And Vomiting Oxycodone HCl 5 mg 04/18/21 16:29 04/19/21 15:34 Oxycodone Hcl (*Crx) 5 Mg Tab Ir PO 5 mg Q4H PRN Administration Pain Rated 7-10 Oxycodone HCl 5 mg 04/18/21 17:00 04/20/21 08:26 Oxycodone Hcl (*Crx) 5 Mg Tab Ir PO 5 mg Q4HR LOLY Administration Rivaroxaban 10 mg 04/19/21 12:00 04/19/21 12:57 Rivaroxaban 10 Mg Tablet PO 05/02/21 12:01 10 mg Q24H LOLY Administration Vitamin D 2,000 units 04/19/21 09:00 04/20/21 08:26 Cholecalciferol 1,000 Units Tablet PO 2,000 units DAILY [facility] Administration Zolpidem Tartrate 10 mg 04/18/21 21:00 04/19/21 20:43 Zolpidem Tartrate (*Crx) 5 Mg Tablet PO 10 mg HS [facility] Administration Radiology Results: ITS Impressions Knee X-Ray 04/18/21 15:18 IMPRESSION: 1. Left total knee arthroplasty, negative for postoperative purposes. Quality VTE Prophylaxis VTE prophylaxis: pharmacologic ordered
[2021-04-20] MEDS: RIVAROXABAN 10 MG TABLET PO (12:41)
[2021-04-20 14:00] VITALS: BP 115/65; PULSE 100; RESP 16; TEMP 36.6; O2SAT 93
== END 2021-04-20 15:42 | disposition home health service (06) ==
LOC: ANHSURGERY 09:59 → ANH2MED 04-19 07:13
PROVIDERS: PCP Family Medicine; Visit Provider Orthopaedic Surgery
PROC: (CPT 27447; principal; 2021-04-18 12:00)
DX: M17.12 Unilateral primary osteoarthritis, left knee (principal); G89.18 Other acute postprocedural pain; E78.2 Mixed hyperlipidemia; I27.20 Pulmonary hypertension, unspecified; F33.1 Major depressive disorder, recurrent, moderate; E66.9 Obesity, unspecified; Z68.34 Body mass index [BMI] 34.0-34.9, adult; Z87.891 Personal history of nicotine dependence; Z79.01 Long term (current) use of anticoagulants
CPT/HCPCS: 27447; 64447; 36415; 73560; 80048; 85025; 97110; 97116; 97161; 97165; 97530; 97535; A9270; C1713; C1776; J0690; J1100; J1170; J2250; J2370; J2405; J2704; J3010; J3370; J7120

== ENCOUNTER 2021-05-12 16:40 | Emergency (ER) | payer MEDICARE, SELFPAY ==
--- NOTE | ~2021-05-12 | XR_ITS ---
EXAMINATION: XR abdomen obstructive series DATE: 05/12/2021 17:15 INDICATION: Constipation. TECHNIQUE: Upright and supine views of the abdomen on 4 radiographs were obtained. COMPARISON: Lumbar spine radiographs 11/26/2018 FINDINGS: There are no dilated loops of bowel. There is a moderate volume of stool in the colon. No f ree intraperitoneal gas. Calcifications of the pelvis are likely phleboliths. IMPRESSION: 1. Nonobstructive bowel gas pattern. Reviewed, dictated and finalized at location A.
[2021-05-12 16:49] VITALS: BP 128/87; PULSE 114; RESP 20; TEMP 36.3; O2SAT 97
--- NOTE | 2021-05-12 16:49 | ED.ABDPAIN ---
HPI - Abdominal Pain General Chief Complaint: Abdominal Pain Stated Complaint: Abdominal pain/Need Xray Time Seen by Provider: 05/12/21 16:49 Source: patient and RN notes reviewed History of Present Illness HPI narrative: Patient is a 66-year-old female who presents the urgent care with her spouse with complaints of lower abdominal pain/cramping/bloating for the last 3 to 4 days. Patient states that she has not had a real bowel movement since April 18. States that she has been on pain medication since then due to having left knee surgery. Patient states that she passes small amounts of stool but has not had a normal bowel movement. Denies of any nausea or vomiting. States that she has been on Dulcolax since the surgery and has upped her doses without any improvement. Denies of any blood in the stool. No other acute complaints. No acute distress noted. Patient and spouse aware of the plan of care. Some parts of this dictation were generated by voice recognition software and may contain typographical and/or grammatical inaccuracies. Related Data Home Medications Medication Instructions Recorded Confirmed [id number]-gmjymxbf-yjsunjx-folic 1 tablet PO DAILY 12/20/20 05/03/21 acid 400 mcg-vit K1 20 mcg tablet escitalopram oxalate 20 mg PO QAM 04/06/21 05/03/21 atorvastatin 20 mg PO DAILY 05/12/21 05/12/21 cyclobenzaprine 10 mg PO TID PRN 05/12/21 05/12/21 ondansetron 4 mg PO Q6H PRN 05/12/21 05/12/21 Allergies Allergy/AdvReac Type Severity Reaction Status Date / Time Sulfa (Sulfonamide Allergy Unknown Skin Verified 05/12/21 17:22 Antibiotics) Reaction/RASH Review of Systems Review of Systems: CONSTITUTIONAL: Denies fever, chills, or sweats. EYES: Denies visual changes, redness, or discharge. ENT: Denies rhinorrhea, congestion, sore throat, or otalgia. CARDIOVASCULAR: Denies chest pain, palpitations, or edema. RESPIRATORY: Denies cough or dyspnea. GASTROINTESTINAL: Reports of lower abdominal cramping and constipation GENITOURINARY: Denies dysuria or hematuria. SKIN: Denies rash or itching. MUSCULOSKELETAL: Denies back pain, joint pain, or myalgia. NEUROLOGIC: Denies headache, numbness, or weakness. All other systems reviewed are negative, except as documented in HPI. [facility] Past Medical History Medical History Cataract (~2015) Chronic midline low back pain without sciatica Hepatitis C antibody test negative (09/16/19) Major depressive disorder, recurrent, moderate Migraine Mixed hyperlipidemia Obesity Pulmonary hypertension Surgical History Surgical History H/O adenoidectomy (~1978) H/O breast augmentation (~1989) H/O colonoscopy H/O hemorrhoidectomy H/O hernia repair (~1986) History of appendectomy (~1978) History of bilateral tubal ligation History of left knee replacement April 18, 2021 History of tonsillectomy (~1973) History of uterine suspension procedure (~1985) Family History Family History Father Diabetes mellitus Cerebrovascular accident Grandparent Family history of glaucoma Mother Family history of elevated blood lipids Family history of malignant neoplasm Family history of pancreatic cancer Sibling Family history of elevated blood lipids Social History Social History Smoking packs per day: 1 Smoking cigarettes per day: 20.0 Years smoked: 30 Smoking pack-years: 30.00 Tobacco type: cigarettes Smoking end date: 07/18/16 Alcohol intake: never Alcohol use details: SOCIAL 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
== END 2021-05-12 17:33 | disposition left against medical advice (07) ==
PROVIDERS: Emergency Provider Nurse Practitioner Family; PCP Family Medicine
DX: K59.00 Constipation, unspecified (principal); F17.210 Nicotine dependence, cigarettes, uncomplicated; F32.9 Major depressive disorder, single episode, unspecified; E78.2 Mixed hyperlipidemia; E66.9 Obesity, unspecified; Z68.34 Body mass index [BMI] 34.0-34.9, adult; I27.20 Pulmonary hypertension, unspecified; Z96.652 Presence of left artificial knee joint
CPT/HCPCS: 74019; 99213; G0463

== ENCOUNTER 2021-05-14 05:25 | Inpatient (IN) | payer MEDICARE, SELFPAY ==
[2021-05-14] VITALS (12 sets, daily range): BP systolic 110–145; BP diastolic 75–98; PULSE 79–109; RESP 16–22; TEMP 36–37.3; O2SAT 92–98; BMI 35.2
--- NOTE | ~2021-05-14 | XR_ITS ---
XR abdomen/kub 1V DATE: 05/15/2021 16:25 INDICATION: Umbilical abdominal pain, constipation TECHNIQUE: Portable supine AP views of the abdomen COMPARISON: None FINDINGS: Approximately 1.3 cm calcified splenic artery aneurysm is suggested left upper quadrant. The psoas shadows are intact. No visceromegaly is evident. There is no evidence of bowel obstruction. There is a moderate amount of fecal material in the colon. IMPRESSION: Nonspecific abdomen Reviewed, dictated and finalized at Location A. Reviewed, dictated and finalized at location A. IMPRESSION: Nonspecific abdomen
--- NOTE | ~2021-05-14 | CT_ITS ---
EXAMINATION: CT abdomen pelvis w con DATE: 05/14/2021 06:43 INDICATION: Abdominal pain and constipation TECHNIQUE: Computed tomography (CT) of the abdomen and pelvis was performed with 100 mL Omnipaque-350 intravenous contrast. Automated exposure control and iterative reconstruction technique were employe d. The dose-length product was 1287.77 mGy-cm. COMPARISON: None FINDINGS: Small calcified nodule at the lingula consistent with old granulomatous disease. Mild scattered atele ctasis at the bilateral lung bases. Heart size is normal. Atherosclerotic coronary artery calcific le emily. No pericardial or pleural effusion. Bilateral breast implants. Several small low-attenuation he patic cysts, the largest measuring 1.3 cm. Gallbladder, pancreas, bilateral adrenal glands and kidney s are normal. Splenic calcification consistent with old granulomatous disease. 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 Prominent wall thickening along a 20 cm segment of distal descending and prox imal sigmoid colon consistent with a localized colitis. There are few scattered diverticula including along the region of wall thickening but without focally increased surrounding from trace stranding t o suggest diverticulitis. There is a relatively ahaustral pattern in the more distal descending colon . Small bowel is normal. The appendix is not visualized. No pericecal inflammatory change to suggest acute appendicitis. Bladder, anteverted uterus and left adnexa are unremarkable. 3.2 cm right adnexal cyst. No free intraperitoneal gas or fluid. No pathologically enlarged abdominal or pelvic lymphaden opathy. There is calcified atherosclerosis of the aorta and many of the other arteries. Moderate spon dylosis at the lumbosacral junction. IMPRESSION: 1. Focal colitis along a 20 cm length of distal descending and proximal sigmoid colon most likely eit her infectious or inflammatory in etiology versus less likely ischemic. The distal location and ahaus tral pattern to the more distal sigmoid colon raises the possibility of ulcerative colitis. Reviewed, dictated and finalized at location A. IMPRESSION: 1. Focal colitis along a 20 cm length of distal descending and proximal sigmoid colon most likely either infectious or inflammatory in etiology versus less [place] ischemic. The distal location and ahaustral pattern to the more distal sig moid colon raises the possibility of ulcerative colitis.
--- NOTE | 2021-05-14 05:57 | PC.NURSE ---
pt gave urine sample, not enough for lab to run at this time. pt will attempt to give ore shortly.
[2021-05-14 06:03] LABS: Basophils Absolute Auto 0.1 K/mm3 (0.0-0.1); Basophils Percent Auto 0.6 % (0.2-1.2); Eosinophils Absolute Auto 0.1 K/mm3 (0-0.3); Eosinophils Percent Auto 1.5 % (0-4.4); Hematocrit 42.5 % (37.0-47.0); Hemoglobin 13.5 g/dL (12.0-15.0); Immature Granulocyte Absolute 0.03 K/mm3 (0.00-0.031); Immature Granulocyte Percent A 0.3 % (0-0.5); Lymphocytes Absolute Auto 2.11 K/mm3 (0.9-3.2); Lymphocytes Percent Auto 22.6 % (18.3-44.2); Mean Corpuscular HGB Conc 31.8 g/dl (32-36); Mean Corpuscular Hemoglobin 28.8 pg (26-34); Mean Corpuscular Volume 90.8 fl (80-100); Mean Platelet Volume 9.8 fl (7.4-10.4); Monocytes Percent Auto 10.3 % (2.6-8.5); Neutrophils Percent Auto 64.7 % (45.5-73.1); Platelet Count Result 492 k/mm3 (150-375); Red Blood Count 4.68 M/mm3 (4.2-5.4); Red Cell Distribution Width 14.9 % (11.5-14.5); White Blood Count 9.3 K/mm3 (4.5-10.0)
[2021-05-14 06:17] LABS: Alanine Aminotransferase 25 U/L (4-35); Albumin Level 3.9 g/dL (3.5-5.1); Alkaline Phosphatase 138 U/L (38-126); Anion Gap 9 mmol/L (8-16); Aspartate Amino Transferase 37 U/L (14-36); Bilirubin,Total 0.6 mg/dL (0.2-1.3); Blood Urea Nitrogen 5 mg/dL (7-17); Calcium 9.9 mg/dL (8.4-10.2); Carbon Dioxide 28 mmol/L (22-30); Chloride 97 mmol/L (98-107); Estimated CRCL calculation 85 ml/min; Estimated Glomerular Filt Rate > 60; Glucose 141 mg/dL (65-110); Potassium 2.6 mmol/L (3.4-5.0); Sodium 134 mmol/L (137-145)
--- NOTE | 2021-05-14 06:20 | ECG_ITS ---
Measurements Intervals Royal Rate: 81 P: 90 NE: 178 QRS: -44 QRSD: 107 T: 7 QT: 392 QTc: 457 Interpretive Statements SINUS RHYTHM LEFT AXIS DEVIATION INCOMPLETE RIGHT BUNDLE BRANCH BLOCK LEFT VENTRICULAR HYPERTROPHY AND ST-T CHANGE POOR R WAVE PROGRESSION, ANTERIOR LEADS BORDERLINE T WAVE ABNORMALITY- INFERIOR LEADS BORDERLINE ECG Electronically Signed On 05-14-2021 9:37:10 CDT by Navid Nunes D.O.
--- NOTE | 2021-05-14 06:21 | ED.GENADULT ---
HPI - General Adult General Chief complaint: Unspecified <DO Gayle Ashley Last Filed: 05/14/21 06:27> Stated complaint: constipation <DO Gayle Ashley Last Filed: 05/14/21 06:27> Time Seen by Provider: 05/14/21 06:19 <DO Gayle Ashley Last Filed: 05/14/21 06:27> Source: RN notes reviewed <DO Gayle Ashley Last Filed: 05/14/21 06:27> History of Present Illness HPI narrative: Patient presents emergency department from home for abdominal pain. Patient states that she had knee surgery the beginning of the month is not had a normal bowel movement since April 18 she states that over the past 3 days she has been having some increasing abdominal pain described as cramping she states that she did try taking magnesium citrate and threw this back up she states she has nausea on any narcotic pain medication at this time she denies any fevers or chills chest pain shortness of breath or any other symptoms <DO Gayle Ashley Last Filed: 05/14/21 06:27> Related Data Home medications: Home Medications Medication Instructions Recorded Confirmed gqeaivqrazvr-rorutcrg-cxutxls-folic 1 tablet PO DAILY 12/20/20 05/14/21 acid 400 mcg-vit K1 20 mcg tablet escitalopram oxalate 20 mg PO QAM 04/06/21 05/14/21 atorvastatin 20 mg PO DAILY 05/12/21 05/14/21 aspirin 325 mg BYMOUTH DAILY 05/14/21 05/14/21 <DO Gayle Ashley Last Filed: 05/14/21 06:27> Allergies/adverse reactions: Allergies Allergy/AdvReac Type Severity Reaction Status Date / Time Sulfa (Sulfonamide Allergy Unknown Skin Verified 05/14/21 10:19 Antibiotics) Reaction/RASH <DO Gayle Ashley Last Filed: 05/14/21 06:27> Review of Systems Review of Systems: Gen.: Denies fevers or chills ENT: Denies congestion Respiratory: Denies shortness of breath or cough CV: Denies chest pain or palpitations GI: See HPI Musculoskeletal: Denies back pain or muscle pain Neuro: Denies numbness, tingling, weakness or focal weakness Skin: Denies rash Except as documented, all other systems reviewed and negative <Kiko Don DO - Last Filed: 05/14/21 06:27> [facility] Past Medical History Medical History: Medical History (Updated 05/14/21 @ 18:20 by Juliana Em MD) Cataract (~2015) Chronic midline low back pain without sciatica Hepatitis C antibody test negative (09/16/19) Major depressive disorder, recurrent, moderate Migraine Mixed hyperlipidemia Obesity Pulmonary hypertension <Kiko Don DO - Last Filed: 05/14/21 06:27> Surgical History Surgical History: Surgical History H/O adenoidectomy (~1978) H/O breast augmentation (~1989) H/O colonoscopy H/O hemorrhoidectomy H/O hernia repair (~1986) History of appendectomy (~1978) History of bilateral tubal ligation History of left knee replacement April 18, 2021 History of tonsillectomy (~1973) History of uterine suspension procedure (~1985) <Kiko Don DO - Last Filed: 05/14/21 06:27> Family History Family History: Family History Father Diabetes mellitus Cerebrovascular accident Grandparent Family history of glaucoma Mother Family history of elevated blood lipids Family history of malignant neoplasm Family history of pancreatic cancer Sibling Family history of elevated blood lipids <Kiko Don DO - Last Filed: 05/14/21 06:27> Social History Social History: Social History (Updated 05/14/21 @ 17:44 by Chel Dupont NP) Social History: The patient lives with her . The is a durable power criminal attorney for healthcare. The patient is a full code. The patient has 3 children. Patient is retired from [employer]. The patient is a former smoker. She quit in 2015. She does not use any marijuana alcohol or illicit drugs. Smoking packs per day: 1
--- NOTE | 2021-05-14 06:33 | PC.NURSE ---
called lab to add on a magnesium onto patient at this time
[2021-05-14 06:51] LABS: Magnesium 1.8 mg/dL (1.6-2.3)
[2021-05-14] MEDS: LORazepam INJ (*CRX) 2 MG/ML VIAL 0.5 MG IV PUSH (07:10)
[2021-05-14] MEDS: SODIUM CHLORIDE 0.9% IV 1,000 ML 125 ML (07:23)
[2021-05-14 07:42] LABS: Add Urine Microscopic? NO; Appearance Urine Clear (Clear); Bacteria Urine Trace /hpf; Bilirubin Urine Negative (Negative); Blood Urine Negative (Negative); Color Urine Yellow (Yellow); Glucose Urine UA Negative (Negative); Ketones Urine Negative (Negative); Leukocyte Esterase Ur Negative LEU/UL (Negative); Mucus Urine Heavy /lpf; Nitrate Urine Negative (Negative); Protein Urine Negative (Negative); Squamous Epithelial Cell Urine Many /hpf (Few); Urobilinogen Urine Negative mg/dL (<2.0)
[2021-05-14 07:54] LABS: Specific Grav Ur 1.005 (1.001-1.035)
--- NOTE | 2021-05-14 09:50 | ADMGEN ---
This patient, Chantal Darnell, was admitted to Medical Room 258-01. Patient/family oriented to hospital policies and general routines including ID bracelet, bed and alarms, visiting hours, pain management, procedures, bathroom and other care routines, personal items, smoking policy, room service/diet, and visiting hours. Information on how to activate the Rapid Response Team has been discussed. Patient/Family are encouraged to report perceived risks to care and to ask questions if they do not understand what they are told or what they should do.
[2021-05-14] MEDS: SODIUM CHLORIDE 0.9% IV 1,000 ML 125 ML IV CONT (12:16)
[2021-05-14 16:48] LABS: Anion Gap 6 mmol/L (8-16); Blood Urea Nitrogen 4 mg/dL (7-17); Calcium 8.9 mg/dL (8.4-10.2); Carbon Dioxide 28 mmol/L (22-30); Chloride 105 mmol/L (98-107); Estimated CRCL calculation 100 ml/min; Estimated Glomerular Filt Rate > 60; Glucose 105 mg/dL (65-110); Potassium 2.6 mmol/L (3.4-5.0); Sodium 139 mmol/L (137-145)
[2021-05-14] MEDS: MAGNESIUM SULF 2 GM/WATER 50ML 2 GM/50 ML BAG IVPB (17:13)
--- NOTE | 2021-05-14 17:37 | PM.IMHP ---
H&P: HPI History of Present Illness Date/Time: 05/14/21 17:37Thianthony is a 66-year-old female patient who presented to the emergency room with complaints of abdominal pain. Patient stated that she has been feeling constipated since she had her knee surgery at the beginning of the month. The patient stated she has not had a normal bowel movement since April 18. The patient stated that she has only had small smears. She has had some abdominal cramping and she stated that she tried taking magnesium citrate and then through back up. The patient has not been using any narcotic medication. Patient stated that she is been eating and drinking very little. The patient had abdominal pelvis CT which was read as the following Focal colitis along a 20 cm length of distal descending and proximal sigmoid colon most likely either infectious or inflammatory in etiology versus less likely ischemic. The distal location and ahaustral pattern to the more distal sigmoid colon raises the possibility of ulcerative colitis. Potassium 2.6 and the patient was given IV potassium. Repeat was still 2.6. I added a magnesium on and gave her magnesium IV. I also added Flagyl in the event that she has infectious colitis. The patient is being admitted to observation status on the date of service of 05/14/2021. Chief Complaint: abdominal pain Review of Systems Review of Systems: All systems reviewed & are unremarkable except as noted in HPI and below Constitutional: Constitutional: Reports as per HPI and Reports no additional constitutional complaints Eyes: Eyes: Reports as per HPI and Reports no additional eye complaints ENT: Reports system reviewed and no additional complaints, except as documented and Reports Normal hearing present Cardiovascular: Cardiovascular: Reports no additional cardiovascular complaints Respiratory: Respiratory: Reports no additional respiratory complaints and Reports no additional respiratory complaints Gastrointestinal: Gastrointestinal: Reports as per HPI and Reports no additional gastrointestinal complaints Musculoskeletal: Musculoskeletal: Reports no additional musculoskeletal complaints Integumentary/Breasts: Skin/Breast: Reports system reviewed and no additional complaints, except as docu and Reports as per HPI Neurologic: Reports system reviewed and no additional complaints, except as documented, Reports as per HPI and Reports Normal hearing present Psychiatric: Psychiatric: Reports no additional psychiatric complaints and Reports as per HPI Endocrine: Endocrine: Reports no additional endocrine complaints Hematologic/Lymphatic: Hematologic/Lymphatic: Reports no additional hematologic/lymphatic complaints Allergic/Immunologic: Allergic/Immunologic: Reports no additional allergic/immunologic complaints [facility] Past Medical History Medical History (Updated 05/14/21 @ 17:48 by Chel Dupont NP) Cataract (~2015) Chronic midline low back pain without sciatica Hepatitis C antibody test negative (09/16/19) Major depressive disorder, recurrent, moderate Migraine Mixed hyperlipidemia Obesity Pulmonary hypertension Surgical History Surgical History H/O adenoidectomy (~1978) H/O breast augmentation (~1989) H/O colonoscopy H/O hemorrhoidectomy H/O hernia repair (~1986) History of appendectomy (~1978) History of bilateral tubal ligation History of left knee replacement April 18, 2021 History of tonsillectomy (~1973) History of uterine suspension procedure (~1985) Family History Family History Father Diabetes mellitus Cerebrovascular accident Grandparent Family history of glaucoma Mother Family history of elevated blood lipids Family history of malignant neoplasm Family history of pancreatic cancer Sibling Family history of elevated blood lipids Social History Social History (Updated 05/14/21 @ 17:44
[2021-05-14] MEDS: BISACODYL 10 MG SUPPOSITORY RECTAL (17:57)
[2021-05-14] MEDS: POTASSIUM CHLORIDE 20 MEQ TABLET 40 MEQ PO (17:57)
[2021-05-14] MEDS: metroNIDAZOLE 500 MG/ISO 100ML 500 MG/100 ML BAG 100 MG IVPB ×2 (18:21→23:50)
[2021-05-14] MEDS: KCL 20MEQ/0.9% SOD CHL 1,000 ML 100 ML IV CONT (19:24)
[2021-05-14] MEDS: ZOLPIDEM TARTRATE (*CRX) 5 MG TABLET 10 MG PO (20:51)
[2021-05-14] MEDS: SENNOSIDES 8.6 MG TABLET PO (20:54)
[2021-05-15] VITALS (9 sets, daily range): BP systolic 129–137; BP diastolic 52–80; PULSE 80–105; RESP 16; TEMP 36.1–37.3; O2SAT 93–97
[2021-05-15] MEDS: metroNIDAZOLE 500 MG/ISO 100ML 500 MG/100 ML BAG 100 MG IVPB ×3 (05:18→17:35)
[2021-05-15] MEDS: KCL 20MEQ/0.9% SOD CHL 1,000 ML 100 ML IV CONT (05:18)
[2021-05-15 05:37] LABS: Basophils Absolute Auto 0.1 K/mm3 (0.0-0.1); Basophils Percent Auto 1.1 % (0.2-1.2); Eosinophils Absolute Auto 0.1 K/mm3 (0-0.3); Hemoglobin 11.5 g/dL (12.0-15.0); Immature Granulocyte Absolute 0.02 K/mm3 (0.00-0.031); Immature Granulocyte Percent A 0.3 % (0-0.5); Lymphocytes Absolute Auto 1.86 K/mm3 (0.9-3.2); Lymphocytes Percent Auto 28.7 % (18.3-44.2); Mean Corpuscular HGB Conc 31.1 g/dl (32-36); Mean Corpuscular Volume 93.2 fl (80-100); Mean Platelet Volume 9.9 fl (7.4-10.4); Monocytes Absolute Auto 0.7 K/mm3 (0.1-0.6); Monocytes Percent Auto 10.7 % (2.6-8.5); Neutrophils Absolute Auto 3.7 K/mm3 (1.3-6.7); Neutrophils Percent Auto 57.2 % (45.5-73.1); Platelet Count Result 380 k/mm3 (150-375); Red Blood Count 3.97 M/mm3 (4.2-5.4); Red Cell Distribution Width 14.9 % (11.5-14.5); White Blood Count 6.5 K/mm3 (4.5-10.0)
[2021-05-15 05:58] LABS: Alanine Aminotransferase 18 U/L (4-35); Albumin Level 2.9 g/dL (3.5-5.1); Alkaline Phosphatase 97 U/L (38-126); Anion Gap 7 mmol/L (8-16); Aspartate Amino Transferase 27 U/L (14-36); Bilirubin,Total 0.3 mg/dL (0.2-1.3); Blood Urea Nitrogen 3 mg/dL (7-17); Calcium 8.5 mg/dL (8.4-10.2); Carbon Dioxide 25 mmol/L (22-30); Chloride 105 mmol/L (98-107); Estimated CRCL calculation 102 ml/min; Estimated Glomerular Filt Rate > 60; Glucose 108 mg/dL (65-110); Potassium 2.8 mmol/L (3.4-5.0); Sodium 137 mmol/L (137-145)
[2021-05-15] MEDS: POTASSIUM CHLORIDE 20 MEQ TABLET 40 MEQ PO (06:39)
[2021-05-15] MEDS: ATORVASTATIN 20 MG TABLET PO (08:29)
[2021-05-15] MEDS: ASPIRIN 325 MG TABLET BY MOUTH (08:29)
[2021-05-15] MEDS: THERAPEUTIC MULTIVITAMINS/MINERALS TAB (*BKC) 1 TABLET PO (08:30)
[2021-05-15] MEDS: ESCITALOPRAM OXALATE 10 MG TABLET 20 MG PO (08:30)
[2021-05-15] MEDS: polyethylene glycoL 3350 17 GM POWD.PACK PO (08:30)
[2021-05-15] MEDS: ENOXAPARIN 40 MG/0.4 ML SYRINGE SUB-Q (08:30)
[2021-05-15] MEDS: BISACODYL 5 MG TABLET EC 10 MG PO (10:19)
[2021-05-15 13:29] LABS: Anion Gap 8 mmol/L (8-16); Blood Urea Nitrogen 3 mg/dL (7-17); Calcium 8.9 mg/dL (8.4-10.2); Carbon Dioxide 24 mmol/L (22-30); Chloride 104 mmol/L (98-107); Estimated CRCL calculation 102 ml/min; Estimated Glomerular Filt Rate > 60; Glucose 157 mg/dL (65-110); Potassium 3.2 mmol/L (3.4-5.0); Sodium 136 mmol/L (137-145)
[2021-05-15] MEDS: ONDANSETRON INJ 4 MG/2 ML VIAL IV PUSH (15:40)
[2021-05-15] MEDS: CIPROFLOXACIN 400 MG/D5W 200ML 200 ML 200 MG IVPB (16:06)
[2021-05-15] MEDS: BISACODYL 10 MG SUPPOSITORY RECTAL (16:11)
--- NOTE | 2021-05-15 16:54 | PM.IMPN ---
Progress Note: A&P Assessment and Plan (1) Colitis: Code(s): K52.9 - Noninfective gastroenteritis and colitis, unspecified Status: Acute Assessment and Plan: CT of the abdomen as above. started on Flagyl and Cipro IV. follow-up with GI outpatient. Abd Xray showed some impaction Will consider small bowel follow through Consider GI consult (2) Hypokalemia: Code(s): E87.6 - Hypokalemia Status: Acute Assessment and Plan: Continue with IV maintenance potassium. Repeat 2.8 80mcq given oral and IV Repeat 3.2 40mcg IV given Check in the am (3) Major depressive disorder, recurrent, moderate: Code(s): F33.1 - Major depressive disorder, recurrent, moderate Status: Acute Assessment and Plan: continue with home medication of Lexapro (4) Mixed hyperlipidemia: Code(s): E78.2 - Mixed hyperlipidemia Status: Chronic Assessment and Plan: continue with atorvastatin (5) Anxiety: Code(s): F41.9 - Anxiety disorder, unspecified Status: Acute Assessment and Plan: continue Lexapro Ativan 0.25mg IV once Time Spent With Patient Time with patient: Greater than 35 minutes Subjective Date/time seen: 05/15/21 13:00pm & 16:00pm Interval history: Patient is 66-year-old female who is here for constipation/hypokalemia. Patient this morning stated that she was feeling a lot better and she was able to have a decent bowel movement. She also had a knee replacement earlier done in April which she stated she has been off her for pain meds for at least 4 days. She also states that she is still having issues with cramping and she has been having a lot of liquid stool. She has also been having issues with nausea today but has not had any vomiting. She also has not been really eating well. She denies chest pain, shortness of breath, fevers, sweats, chills. Review of Systems Review of Systems: All systems reviewed & are unremarkable except as noted in HPI and below Exam Const: General: cooperative, healthy appearing, comfortable, no acute distress, well developed, alert, awake, Physically active and lethargic Nutritional Appearance: average body habitus and well nourished Orientation/consciousness: oriented to person, oriented to place, oriented to time and patient oriented x3 Limitations: no limitations HENMT: Head: normal to inspection, No palpable skull fracture present, normocephalic and atraumatic Ears: hearing grossly normal bilaterally and external ears normal General nose exam: Normal external nose present and Normal nares present Eyes: General: appearance normal, both eyes and all related structures Alignment and Position: alignment normal Periorbital: periorbital findings normal Eyelids: eyelids normal Conjunctivae: conjunctivae normal Sclera: sclerae normal Cornea: corneas normal Pupils: Equal, round and reactive pupils present EOM: EOMs intact bilaterally Neck: Neck: normal visual inspection, full ROM, no lymphadenopathy, trachea midline and supple Thyroid: thyroid normal Carotids: normal carotid upstroke Lymphatic: no lymphadenopathy noted Chest: Chest palpation & inspection: normal inspection of the chest Resp: Effort & Inspection: normal respiratory effort Auscultation: clear to auscultation bilaterally Percussion: percussion normal Cardio: Palpation: normal PMI Rate: regular rate Rhythm: regular rhythm Heart sounds: S1 normal heart sound present and S2 normal heart sound present Peripheral pulses: Peripheral pulses 2+ throughout GI: Inspection: normal to inspection Auscultation: normal bowel sounds Rectal Exam: deferred Skin: General skin exam: normal color Lesions: no lesions Rashes: no rashes Trauma: no lacerations or abrasions Wounds: no wounds Hair: normal Nails: normal Neuro: General: oriented to person, oriented to place, oriented to time and patient oriented x3
[2021-05-15] MEDS: LORazepam INJ (*CRX) 2 MG/ML VIAL 0.25 MG IV PUSH (16:57)
[2021-05-15] MEDS: ZOLPIDEM TARTRATE (*CRX) 5 MG TABLET 10 MG PO (22:23)
[2021-05-16] VITALS (7 sets, daily range): BP systolic 132–146; BP diastolic 81–88; PULSE 83–102; RESP 16–18; TEMP 36–36.7; O2SAT 94–97
[2021-05-16] MEDS: metroNIDAZOLE 500 MG/ISO 100ML 500 MG/100 ML BAG 100 MG IVPB ×5 (00:26→23:44)
[2021-05-16] MEDS: KCL 20MEQ/0.9% SOD CHL 1,000 ML 100 ML IV CONT ×2 (01:47→15:20)
[2021-05-16 05:56] LABS: Basophils Absolute Auto 0.1 K/mm3 (0.0-0.1); Basophils Percent Auto 0.8 % (0.2-1.2); Eosinophils Absolute Auto 0.2 K/mm3 (0-0.3); Eosinophils Percent Auto 2.6 % (0-4.4); Hematocrit 35.8 % (37.0-47.0); Hemoglobin 11.2 g/dL (12.0-15.0); Immature Granulocyte Absolute 0.02 K/mm3 (0.00-0.031); Immature Granulocyte Percent A 0.3 % (0-0.5); Lymphocytes Absolute Auto 1.85 K/mm3 (0.9-3.2); Mean Corpuscular HGB Conc 31.3 g/dl (32-36); Mean Corpuscular Hemoglobin 28.8 pg (26-34); Monocytes Absolute Auto 0.7 K/mm3 (0.1-0.6); Monocytes Percent Auto 10.3 % (2.6-8.5); Neutrophils Absolute Auto 3.8 K/mm3 (1.3-6.7); Platelet Count Result 364 k/mm3 (150-375); Red Blood Count 3.89 M/mm3 (4.2-5.4); Red Cell Distribution Width 14.9 % (11.5-14.5); White Blood Count 6.6 K/mm3 (4.5-10.0)
[2021-05-16 06:07] LABS: Alanine Aminotransferase 17 U/L (4-35); Alkaline Phosphatase 87 U/L (38-126); Anion Gap 5 mmol/L (8-16); Aspartate Amino Transferase 26 U/L (14-36); Bilirubin,Total 0.4 mg/dL (0.2-1.3); Blood Urea Nitrogen 2 mg/dL (7-17); Calcium 8.9 mg/dL (8.4-10.2); Carbon Dioxide 25 mmol/L (22-30); Chloride 106 mmol/L (98-107); Estimated CRCL calculation 87 ml/min; Estimated Glomerular Filt Rate > 60; Glucose 107 mg/dL (65-110); Magnesium 1.7 mg/dL (1.6-2.3); Potassium 3.7 mmol/L (3.4-5.0); Sodium 136 mmol/L (137-145)
[2021-05-16] MEDS: ASPIRIN 325 MG TABLET BY MOUTH (09:01)
[2021-05-16] MEDS: POTASSIUM CHLORIDE 20 MEQ TABLET.ER 40 MEQ PO (09:01)
[2021-05-16] MEDS: MAGNESIUM SULF 2 GM/WATER 50ML 2 GM/50 ML BAG IVPB (09:01)
[2021-05-16] MEDS: ATORVASTATIN 20 MG TABLET PO (09:01)
[2021-05-16] MEDS: ESCITALOPRAM OXALATE 10 MG TABLET 20 MG PO (09:02)
[2021-05-16] MEDS: polyethylene glycoL 3350 17 GM POWD.PACK PO (09:02)
[2021-05-16] MEDS: THERAPEUTIC MULTIVITAMINS/MINERALS TAB (*BKC) 1 TABLET PO (09:02)
[2021-05-16] MEDS: ENOXAPARIN 40 MG/0.4 ML SYRINGE SUB-Q (09:02)
[2021-05-16] MEDS: SENNOSIDES 8.6 MG TABLET PO (09:03)
--- NOTE | 2021-05-16 11:00 | PC.NURSE ---
called and requesting consult with Dr. Mahoney due to patient having knee replacement on April 17. 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 Incision to knee well approximated without s/s of infection noted. Patient ambulating with walker and standby assistance.
[2021-05-16] MEDS: LACTULOSE 20 GM/30 ML UDC 30 GM PO ×2 (13:16→15:21)
[2021-05-16] MEDS: ONDANSETRON INJ 4 MG/2 ML VIAL IV PUSH ×2 (13:19→16:49)
--- NOTE | 2021-05-16 15:08 | PM.IMPN ---
Progress Note: A&P Assessment and Plan (1) Colitis: Code(s): K52.9 - Noninfective gastroenteritis and colitis, unspecified Status: Acute Assessment and Plan: CT of the abdomen as above. started on Flagyl and Cipro IV. Abd Xray showed impaction Will consider small bowel follow through GI consulted for further recommendation thank you (2) Constipation: Code(s): K59.00 - Constipation, unspecified Status: Acute Assessment and Plan: She has been constipated for weeks She has been given suppositories, miralax, bisacodyl, and an enema She has been started on lactulose x4 doses, only 2 doses given Lactulose enema was given at 1600 No response to enema Relistor SQ was given (3) Hypokalemia: Code(s): E87.6 - Hypokalemia Status: Acute Assessment and Plan: Continue with IV maintenance potassium. k is 3.7 today Check in the am (4) Major depressive disorder, recurrent, moderate: Code(s): F33.1 - Major depressive disorder, recurrent, moderate Status: Acute Assessment and Plan: continue with home medication of Lexapro (5) Mixed hyperlipidemia: Code(s): E78.2 - Mixed hyperlipidemia Status: Chronic Assessment and Plan: continue with atorvastatin will place on hold for now (6) Anxiety: Code(s): F41.9 - Anxiety disorder, unspecified Status: Acute Assessment and Plan: continue Lexapro Ativan 0.25mg IV once Time Spent With Patient Time with patient: Greater than 35 minutes Subjective Date/time seen: 05/16/21 15:00 Interval history: Patient is a 66 year old female that presented in the for constipation and hypokalemia. She still is not doing well again today. She stated that she has had one bowel movement since admission, but she is still complaining of abdominal pain, nausea, and severe constipation. Today patient still has not had a bowel movement. She has been given 2 suppositories, 10mg bisacodyl PO, soap suds enema, sennakot, and multiple doses of miralax with no success. She is very uncomfortable and the xrays shows major impaction. She does deny chest pain, shortness of breath, vomiting, weakness, fatigue, sweats, fevers, chills. Went to reevaluate patient at 1445. At that time patient received one dose of lactulose and is scheduled for a second dose at 1500. Dr. Land reviewed the case with me and gave recommendations of continuing the lactulose PO, and that if further issues to switch patient to lactulose enema. Patient still had not had a bowel movement at that time. At 1600, received call from nursing that patient was dry heaving and vomiting after the second dose of lactulose. At that time Reglan was given one time for break through nausea and vomiting. Dr. Land was again updated about the patients condition at that time. Recommendations of lactulose enema at that time. At 2030 received another call about patient having more nausea and vomiting, with no success with the lactulose enema. It was said by nursing that the patient at the time of the enema was successful in holding, but had no response at that time. Another dose of Reglan was given at that time for break though nausea and vomiting at that time. Dr. Thao was called, case was reviewed with him at that time. Plan of care was reviewed and it was suggested that the patient be placed NPO and Relistor SQ to be given at this time. Dr. Thao did go and see the patient according to nursing. Recieved communication of GI consult at that time. Review of Systems Review of Systems: All systems reviewed & are unremarkable except as noted in HPI and below Exam Const: General: cooperative, healthy appearing, comfortable, no acute distress, well developed, alert, awake, Physically active and anxious Nutritional Appearance: average body habitus and well nourished
--- NOTE | 2021-05-16 16:00 | PC.NURSE ---
Patient nauseated and vomiting after receiving second dose of po Lactulose. Notified Claudio Morin ATTENDING [facility]BULATORY CARE and orders received.
[2021-05-16] MEDS: CIPROFLOXACIN 400 MG/D5W 200ML 200 ML 200 MG IVPB (16:41)
[2021-05-16] MEDS: METOCLOPRAMIDE HCL INJ 10 MG/2 ML VIAL IV PUSH ×2 (16:41→19:59)
[2021-05-16] MEDS: LACTULOSE ENEMA 200 GM/1,000 ML ENEMA RECTAL (18:27)
[2021-05-16] MEDS: PROCHLORPERAZINE EDISYLATE 10 MG/2 ML VIAL IV PUSH (21:59)
[2021-05-16] MEDS: METHYLNALTREXONE 12 MG/0.6 ML VIAL SUB-Q (21:59)
[2021-05-17] MEDS: KCL 20MEQ/0.9% SOD CHL 1,000 ML 100 ML IV CONT (04:29)
[2021-05-17 05:29] VITALS: BP 158/88; PULSE 101; RESP 18; TEMP 36.2; O2SAT 96
[2021-05-17] MEDS: metroNIDAZOLE 500 MG/ISO 100ML 500 MG/100 ML BAG 100 MG IVPB ×4 (06:18→23:05)
[2021-05-17 07:19] LABS: Basophils Percent Auto 0.2 % (0.2-1.2); Eosinophils Percent Auto 0.1 % (0-4.4); Hematocrit 40.5 % (37.0-47.0); Hemoglobin 12.5 g/dL (12.0-15.0); Immature Granulocyte Absolute 0.06 K/mm3 (0.00-0.031); Immature Granulocyte Percent A 0.5 % (0-0.5); Lymphocytes Absolute Auto 0.95 K/mm3 (0.9-3.2); Lymphocytes Percent Auto 7.6 % (18.3-44.2); Mean Corpuscular HGB Conc 30.9 g/dl (32-36); Mean Corpuscular Hemoglobin 28.9 pg (26-34); Mean Corpuscular Volume 93.8 fl (80-100); Mean Platelet Volume 9.9 fl (7.4-10.4); Monocytes Absolute Auto 0.7 K/mm3 (0.1-0.6); Monocytes Percent Auto 5.8 % (2.6-8.5); Neutrophils Absolute Auto 10.7 K/mm3 (1.3-6.7); Neutrophils Percent Auto 85.8 % (45.5-73.1); Platelet Count Result 374 k/mm3 (150-375); Red Blood Count 4.32 M/mm3 (4.2-5.4); Red Cell Distribution Width 14.8 % (11.5-14.5); White Blood Count 12.4 K/mm3 (4.5-10.0)
[2021-05-17 07:34] LABS: Alanine Aminotransferase 20 U/L (4-35); Albumin Level 3.3 g/dL (3.5-5.1); Alkaline Phosphatase 106 U/L (38-126); Anion Gap 7 mmol/L (8-16); Aspartate Amino Transferase 32 U/L (14-36); Bilirubin,Total 0.5 mg/dL (0.2-1.3); Blood Urea Nitrogen 3 mg/dL (7-17); Calcium 9.2 mg/dL (8.4-10.2); Carbon Dioxide 25 mmol/L (22-30); Chloride 106 mmol/L (98-107); Estimated CRCL calculation 87 ml/min; Estimated Glomerular Filt Rate > 60; Glucose 138 mg/dL (65-110); Magnesium 1.9 mg/dL (1.6-2.3); Potassium 4.3 mmol/L (3.4-5.0); Sodium 138 mmol/L (137-145)
[2021-05-17] MEDS: ENOXAPARIN 40 MG/0.4 ML SYRINGE SUB-Q (09:32)
[2021-05-17 10:12] VITALS: BP 138/89; PULSE 98; O2SAT 100
[2021-05-17] MEDS: LORazepam INJ (*CRX) 2 MG/ML VIAL 0.25 MG IV PUSH (12:11)
[2021-05-17 14:00] VITALS: BP 146/70; PULSE 83; RESP 18; TEMP 35.9; O2SAT 93
--- NOTE | 2021-05-17 14:18 | WPDGICN ---
Assessment and Plan Assessment and plan (1) Constipation: Qualifiers: Constipation type: unspecified constipation type Qualified Code(s): K59.00 - Constipation, unspecified Code(s): K59.00 - Constipation, unspecified Status: Acute Assessment and Plan: Patient with significant constipation fact may have a fecal impaction. Likely related to decreased mobility and pain medications after her recent knee surgery. Plan is for continued use of laxatives and cleansing enemas. Likely may take several days for this to total be cleanse. Continue supportive care for now. (2) Colitis: Code(s): K52.9 - Noninfective gastroenteritis and colitis, unspecified Status: Acute Assessment and Plan: CT scan suggestive of colitis. Patient has no localized tenderness or other reason to think a long-term nature such as colitis. Recent colonoscopy within the last year was unremarkable making this a highly unlikely. Changes seen on CT scan most likely related to impaction and constipation. Would recommend conservative evaluation at this time. I understand she is on empiric antibiotics and this is okay, but no evidence for infection clinically at this time. (3) History of left knee replacement: Code(s): Z96.652 - Presence of left artificial knee joint Status: Resolved GI Consult Note Consult date/time: 05/17/21 14:18 HPI: Chantal Darnell is a 66 year old female I am asked to see because of fecal impaction. Patient known to me from June 2020 at that time we did a screening colonoscopy a benign colon polyp was identified. Patient reports that she underwent a left knee replacement approximately a month ago. Since that time has had decreased mobility and pain medications. She began to have abdominal pain along with decreased frequency of bowel movements. She presented the hospital with constipation as CT scan confirmed fecal impaction as well as possible inflammation in the left descending colon. Patient reports at the time of admission her potassium was quite low. She has had some minimal improvement with some laxatives and enemas. She denies any bleeding or weight loss. Review of Systems Review of Systems: All systems reviewed & are unremarkable except as noted in HPI and below [facility] Past Medical History Medical History (Updated 05/16/21 @ 15:16 by SILVINA March) Cataract (~2015) Chronic midline low back pain without sciatica Hepatitis C antibody test negative (09/16/19) Major depressive disorder, recurrent, moderate Migraine Mixed hyperlipidemia Obesity Pulmonary hypertension Surgical History Surgical History H/O adenoidectomy (~1978) H/O breast augmentation (~1989) H/O colonoscopy H/O hemorrhoidectomy H/O hernia repair (~1986) History of appendectomy (~1978) History of bilateral tubal ligation History of left knee replacement April 18, 2021 History of tonsillectomy (~1973) History of uterine suspension procedure (~1985) Family History Family History Father Diabetes mellitus Cerebrovascular accident Grandparent Family history of glaucoma Mother Family history of elevated blood lipids Family history of malignant neoplasm Family history of pancreatic cancer Sibling Family history of elevated blood lipids Social History Social History (Updated 05/14/21 @ 17:44 by Chel Dupont NP) Social History: The patient lives with her . 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 The patient is a full code. The patient has 3 children. Patient is retired from [employer] The patient is a former smoker. She quit in 2016. She does not use any marijuana alcohol or illicit drugs. Smoking packs per day: 1 Smoking cigarettes per day: 20.0 Years smoked: 30 Smoking pack-years: 30.00 Smoking status: Former smoker
--- NOTE | 2021-05-17 15:12 | P.PNIM_ITS ---
Progress Note: A&P Assessment and Plan (1) Colitis: Code(s): K52.9 - Noninfective gastroenteritis and colitis, unspecified Status: Acute Assessment and Plan: * CT of the abdomen as above. * started on Flagyl and Cipro IV. * Abd Xray showed impaction * GI consulted for further recommendation thank you (2) Constipation: Code(s): K59.00 - Constipation, unspecified Status: Acute Assessment and Plan: * She has been constipated for weeks * She has been given suppositories, miralax, bisacodyl, and an enema * She has been started on lactulose x4 doses, only 2 doses given * Lactulose enema was given at 1600 * No response to enema * recommendations for laxatives and enemas * Lactulose 30gm BID and will order soap suds enema as well * Consider another lactulose enema * Relistor SQ was given (05/16/21) * Soapsuds enema BID ordered (3) Hypokalemia: Code(s): E87.6 - Hypokalemia Status: Acute Assessment and Plan: * Continue with IV maintenance potassium. * k is 4.3 today * Check in the am (4) Major depressive disorder, recurrent, moderate: Code(s): F33.1 - Major depressive disorder, recurrent, moderate Status: Acute Assessment and Plan: * continue with home medication of Lexapro (5) Mixed hyperlipidemia: Code(s): E78.2 - Mixed hyperlipidemia Status: Chronic Assessment and Plan: * continue with atorvastatin * will place on hold for now (6) Anxiety: Code(s): F41.9 - Anxiety disorder, unspecified Status: Acute Assessment and Plan: * continue Lexapro * Ativan 0.25mg IV given on 05/17/21 for severe anxiety Subjective Date/time seen: 05/17/21 07:00 Interval history: Patient is a 66 year old female her for constipation. Patient still has no relief from all of the laxatives and enemas we have given her. GI was consulted and recommends continuing the laxatives and enemas. Patient is very miserable in her bed. She is uncomfortable and is unable to tolerate p.o. intake very well with food or even clear liquids. Patient does not have any chest pain, shortness of breath, weakness, fatigue, sweats, fevers, chills. However patient has severe constipation and wants to know a game plan to get her have a bowel movement. Review of Systems Review of Systems: All systems reviewed & are unremarkable except as noted in HPI and below Exam Const: General: cooperative, healthy appearing, comfortable, no acute distress, well developed, alert, awake, Physically active and anxious Nutritional Appearance: average body habitus and well nourished Orientation/consciousness: oriented to person, oriented to place, oriented to time and patient oriented x3 Limitations: no limitations HENMT: Head: normal to inspection, No palpable skull fracture present, normocephalic and atraumatic Ears: hearing grossly normal bilaterally and external ears normal General nose exam: Normal external nose present and Normal nares present Eyes: General: appearance normal, both eyes and all related structures Alignment and Position: alignment normal Periorbital: periorbital findings normal Eyelids: eyelids normal Conjunctivae: conjunctivae normal Sclera: sclerae normal Cornea: corneas normal Pupils: Equal, round and reactive pupils present EOM: EOMs intact bilaterally Neck:
--- NOTE | 2021-05-17 15:12 | PM.IMPN ---
Progress Note: A&P Assessment and Plan (1) Colitis: Code(s): K52.9 - Noninfective gastroenteritis and colitis, unspecified Status: Acute Assessment and Plan: CT of the abdomen as above. started on Flagyl and Cipro IV. Abd Xray showed impaction GI consulted for further recommendation thank you (2) Constipation: Code(s): K59.00 - Constipation, unspecified Status: Acute Assessment and Plan: She has been constipated for weeks She has been given suppositories, miralax, bisacodyl, and an enema She has been started on lactulose x4 doses, only 2 doses given Lactulose enema was given at 1600 No response to enema recommendations for laxatives and enemas Lactulose 30gm BID and will order soap suds enema as well Consider another lactulose enema Relistor SQ was given (05/16/21) Soapsuds enema BID ordered (3) Hypokalemia: Code(s): E87.6 - Hypokalemia Status: Acute Assessment and Plan: Continue with IV maintenance potassium. k is 4.3 today Check in the am (4) Major depressive disorder, recurrent, moderate: Code(s): F33.1 - Major depressive disorder, recurrent, moderate Status: Acute Assessment and Plan: continue with home medication of Lexapro (5) Mixed hyperlipidemia: Code(s): E78.2 - Mixed hyperlipidemia Status: Chronic Assessment and Plan: continue with atorvastatin will place on hold for now (6) Anxiety: Code(s): F41.9 - Anxiety disorder, unspecified Status: Acute Assessment and Plan: continue Lexapro Ativan 0.25mg IV given on 05/17/21 for severe anxiety Subjective Date/time seen: 05/17/21 07:00 Interval history: Patient is a 66 year old female her for constipation. Patient still has no relief from all of the laxatives and enemas we have given her. GI was consulted and recommends continuing the laxatives and enemas. Patient is very miserable in her bed. She is uncomfortable and is unable to tolerate p.o. intake very well with food or even clear liquids. Patient does not have any chest pain, shortness of breath, weakness, fatigue, sweats, fevers, chills. However patient has severe constipation and wants to know a game plan to get her have a bowel movement. Review of Systems Review of Systems: All systems reviewed & are unremarkable except as noted in HPI and below Exam Const: General: cooperative, healthy appearing, comfortable, no acute distress, well developed, alert, awake, Physically active and anxious Nutritional Appearance: average body habitus and well nourished Orientation/consciousness: oriented to person, oriented to place, oriented to time and patient oriented x3 Limitations: no limitations HENMT: Head: normal to inspection, No palpable skull fracture present, normocephalic and atraumatic Ears: hearing grossly normal bilaterally and external ears normal General nose exam: Normal external nose present and Normal nares present Eyes: General: appearance normal, both eyes and all related structures Alignment and Position: alignment normal Periorbital: periorbital findings normal Eyelids: eyelids normal Conjunctivae: conjunctivae normal Sclera: sclerae normal Cornea: corneas normal Pupils: Equal, round and reactive pupils present EOM: EOMs intact bilaterally Neck: Neck: normal visual inspection, full ROM, no lymphadenopathy, trachea midline and supple Thyroid: thyroid normal Carotids: normal carotid upstroke Lymphatic: no lymphadenopathy noted Chest: Chest palpation & inspection: normal inspection of the chest Resp: Effort & Inspection: normal respiratory effort Auscultation: clear to auscultation bilaterally Percussion: percussion normal Cardio: Palpation: normal PMI Rate: regular rate Rhythm: regular rhythm Heart sounds: S1 normal heart sound present and S2 normal heart sound present Peripheral
[2021-05-17] MEDS: CIPROFLOXACIN 400 MG/D5W 200ML 200 ML 200 MG IVPB (16:02)
[2021-05-17] MEDS: LACTULOSE 20 GM/30 ML UDC 30 GM PO (16:05)
[2021-05-17] MEDS: SENNOSIDES 8.6 MG TABLET PO (16:06)
[2021-05-17] MEDS: LACTATED RINGERS 1,000 ML 75 ML IV CONT (17:41)
[2021-05-17] MEDS: ONDANSETRON INJ 4 MG/2 ML VIAL IV PUSH (21:05)
[2021-05-17 22:00] VITALS: BP 148/89; PULSE 93; RESP 18; TEMP 36.1; O2SAT 96
[2021-05-17] MEDS: PROCHLORPERAZINE EDISYLATE 10 MG/2 ML VIAL IV PUSH (22:18)
[2021-05-17] MEDS: ZOLPIDEM TARTRATE (*CRX) 5 MG TABLET 10 MG PO (23:05)
[2021-05-18] MEDS: ONDANSETRON INJ 4 MG/2 ML VIAL IV PUSH (01:29)
[2021-05-18] MEDS: metroNIDAZOLE 500 MG/ISO 100ML 500 MG/100 ML BAG 100 MG IVPB ×4 (05:12→23:47)
[2021-05-18 05:43] LABS: Basophils Percent Auto 0.3 % (0.2-1.2); Eosinophils Percent Auto 0.4 % (0-4.4); Hematocrit 39.1 % (37.0-47.0); Hemoglobin 11.8 g/dL (12.0-15.0); Immature Granulocyte Absolute 0.05 K/mm3 (0.00-0.031); Immature Granulocyte Percent A 0.5 % (0-0.5); Lymphocytes Absolute Auto 1.64 K/mm3 (0.9-3.2); Lymphocytes Percent Auto 15.2 % (18.3-44.2); Mean Corpuscular HGB Conc 30.2 g/dl (32-36); Mean Corpuscular Volume 92.9 fl (80-100); Mean Platelet Volume 10.1 fl (7.4-10.4); Monocytes Absolute Auto 0.8 K/mm3 (0.1-0.6); Neutrophils Absolute Auto 8.3 K/mm3 (1.3-6.7); Neutrophils Percent Auto 76.6 % (45.5-73.1); Platelet Count Result 362 k/mm3 (150-375); Red Blood Count 4.21 M/mm3 (4.2-5.4); Red Cell Distribution Width 14.9 % (11.5-14.5); White Blood Count 10.8 K/mm3 (4.5-10.0)
[2021-05-18 05:54] LABS: Alanine Aminotransferase 20 U/L (4-35); Albumin Level 2.8 g/dL (3.5-5.1); Alkaline Phosphatase 82 U/L (38-126); Anion Gap 10 mmol/L (8-16); Aspartate Amino Transferase 46 U/L (14-36); Bilirubin,Total 0.5 mg/dL (0.2-1.3); Blood Urea Nitrogen 4 mg/dL (7-17); Calcium 8.5 mg/dL (8.4-10.2); Carbon Dioxide 26 mmol/L (22-30); Chloride 102 mmol/L (98-107); Estimated CRCL calculation 87 ml/min; Estimated Glomerular Filt Rate > 60; Glucose 122 mg/dL (65-110); Magnesium 1.9 mg/dL (1.6-2.3); Potassium 3.1 mmol/L (3.4-5.0); Sodium 138 mmol/L (137-145)
[2021-05-18 06:00] VITALS: BP 120/80; PULSE 89; RESP 17; TEMP 36.2; O2SAT 91
--- NOTE | 2021-05-18 08:20 | WPDGIPROGNO ---
Progress Note: A&P Assessment and Plan (1) Constipation: Qualifiers: Constipation type: unspecified constipation type Qualified Code(s): K59.00 - Constipation, unspecified Code(s): K59.00 - Constipation, unspecified Status: Acute Assessment and Plan: Constipation within pack pavon improving. Plan is to continue laxative such as MiraLax on a daily basis if needed. Increase activity would be beneficial. Hopefully early discharge if others agree. Okay to discharge from GI perspective. (2) Colitis: Code(s): K52.9 - Noninfective gastroenteritis and colitis, unspecified Status: Acute Assessment and Plan: Colitis suggested by CT scan may really be secondary to her retained stool. Broad-spectrum antibiotic should only be given for on 1 week. No need to investigate with colonoscopy as she had 1 recently. Currently asymptomatic with no pain. (3) History of left knee replacement: Code(s): Z96.652 - Presence of left artificial knee joint Status: Resolved Assessment and Plan: Patient is status post knee replacement. Would suggest minimizing narcotic pain medications. She may proceed with rehab when okay with primary care service. Subjective Date/time seen: 05/18/21 08:20 Patient had good bowel movement during the night. Appears to be having response to laxatives and enemas. Review of Systems Review of Systems: All systems reviewed & are unremarkable except as noted in HPI and below Exam Narrative: Physical exam reveals Vital Signs be stable. HEENT exam reveals no icterus. Lungs are clear. Heart without murmur. Abdomen bowel sounds present soft nontender. Objective Data Vital Signs Vital Signs: Vital Signs - 24 hr 05/17/21 10:12 05/17/21 14:00 05/17/21 22:00 Temperature 96.7 F L 97.0 F L Pulse Rate 98 83 93 Respiratory Rate 18 18 Blood Pressure 138/89 146/70 H 148/89 H Pulse Oximetry 100 93 96 05/18/21 06:00 Temperature 97.2 F L Pulse Rate 89 Respiratory Rate 17 Blood Pressure 120/80 Pulse Oximetry 91 Intake/Output Intake/Output: Intake & Output 05/15/21 05/16/21 05/17/21 05/18/21 23:59 23:59 23:59 23:59 Intake Total 3980 2800 3100 200 Output Total 600 2800 Balance 3380 0 3100 200 Meds/Results Medications: Active Medications Generic Name Dose Route Start Last Admin Trade Name Oscar PRN Reason Stop Dose Admin Aspirin 325 mg 05/15/21 09:00 05/17/21 09:07 Aspirin 325 Mg Tablet BY MOUTH Not Given DAILY LOLY Atorvastatin Calcium 20 mg 05/15/21 09:00 05/16/21 09:01 Atorvastatin 20 Mg Tablet PO 20 mg DAILY LOLY Administration Enoxaparin Sodium 40 mg 05/15/21 09:00 05/17/21 09:32 Enoxaparin 40 Mg/0.4 Ml Syringe SUB-Q 40 mg DAILY LOLY Administration Escitalopram Oxalate 20 mg 05/15/21 09:00 05/17/21 09:07 Escitalopram Oxalate 10 Mg Tablet PO Not Given QAM [facility] Metronidazole 500 mg in 100 mls @ 100 mls/hr 05/14/21 18:00 05/18/21 07:20 Flagyl 500 Mg/Iso Soln 100 Ml IVPB Infused Q6H LOLY Infusion Ciprofloxacin/Dextrose 200 mls @ 200 mls/hr 05/15/21 16:00 05/17/21 17:06 Cipro 400 Mg/D5w 200 Ml IVPB Infused Q24H LOLY Infusion Lactated Ringer's 1,000 mls @ 75 mls/hr 05/17/21 15:55 05/17/21 17:41 Lr - Lactated Ringers Iv IV CONT 75 mls/hr .[id number] LOLY Administration Lactulose 30 gm 05/17/21 17:00 05/17/21 16:05 Lactulose 20 Gm/30 Ml Udc PO 30 gm BID LOLY Administration Multivitamins/Calcium 1 tablet 05/15/21 09:00 05/16/21 09:02 Therapeutic Multivitamins/Minerals Tab (*Bkc) PO 1 tablet DAILY LOLY Administration Ondansetron HCl 4 mg 05/14/21 08:32 05/18/21 01:29 Ondansetron Inj 4 Mg/2 Ml Vial IV PUSH 4 mg Q4H PRN Administration Nausea Polyethylene Glycol 17 gm 05/15/21 09:00 05/17/21 09:07 Polyethylene Glycol 3350 17 Gm Powd.Pack PO Not Given QAM [facility] Potassium Chloride 40 meq 05/15/21 08:00 05/16/21
[2021-05-18] MEDS: ESCITALOPRAM OXALATE 10 MG TABLET 20 MG PO (09:20)
[2021-05-18] MEDS: ASPIRIN 325 MG TABLET BY MOUTH (09:20)
[2021-05-18] MEDS: polyethylene glycoL 3350 17 GM POWD.PACK PO (09:21)
[2021-05-18] MEDS: ENOXAPARIN 40 MG/0.4 ML SYRINGE SUB-Q (09:21)
[2021-05-18] MEDS: SENNOSIDES 8.6 MG TABLET PO ×2 (09:25→17:07)
[2021-05-18] MEDS: LACTATED RINGERS 1,000 ML 75 ML IV CONT (09:31)
--- NOTE | 2021-05-18 11:42 | PM.IMPN ---
Progress Note: A&P Assessment and Plan (1) Colitis: Code(s): K52.9 - Noninfective gastroenteritis and colitis, unspecified Status: Acute Assessment and Plan: symptoms are improving and the patient is finally having stool - will start clear liquid diet and advance diet as tolerated - if she tolerates a diet, she can be discharged home tomorrow. patient states she is not ready to discharge as she is not eat anything and feels very weak. will order PT and OT - continue Cipro and Flagyl - will need bowel movement regimen at home (2) Constipation: Code(s): K59.00 - Constipation, unspecified Status: Acute Assessment and Plan: resolved -She has been constipated for weeks -She has been given suppositories, miralax, bisacodyl, and an enemas -Relistor SQ was given (05/16/21), she has been on narcotics for her knee surgery -Soapsuds enema BID ordered (3) Hypokalemia: Code(s): E87.6 - Hypokalemia Status: Acute Assessment and Plan: low again today, likely due to NPO status - replace (4) Major depressive disorder, recurrent, moderate: Code(s): F33.1 - Major depressive disorder, recurrent, moderate Status: Acute Assessment and Plan: continue with home medication of Lexapro (5) Mixed hyperlipidemia: Code(s): E78.2 - Mixed hyperlipidemia Status: Chronic Assessment and Plan: chronic (6) Anxiety: Code(s): F41.9 - Anxiety disorder, unspecified Status: Acute Assessment and Plan: continue Lexapro Time Spent With Patient Time with patient: 25 - 35 minutes Subjective Date/time seen: 05/18/21 11:42 Interval history: Pt is a 66-year-old female here for colitis. Patient was seen today and states she is having many bowel movements. She feels sore on her abdomen but is feeling better in comparison than when she came in. She is still not eating or drinking. She had a lot of nausea yesterday and was throwing up. No vomiting today. She thinks she can try Jell-O but is very hesitant to try anything else. She denies chest pain, lightheadedness, dizziness, cough, or blood in the stool. she feels more weak than normal Review of Systems Review of Systems: All systems reviewed & are unremarkable except as noted in HPI and below Exam Narrative: General: Well developed well nourished patient in NAD HEENT: normocephalic Neck: supple Neuro: Alert and oriented x4 CV:RRR Resp:CTA Abd: Soft, non distended. pain to deep palpation to the abdomen generally. Positive bowel sounds Extremities: No swelling, erythema, or pain to palpation. Objective Data Vital Signs Vital Signs: Vital Signs - 24 hr 05/17/21 14:00 05/17/21 22:00 05/18/21 06:00 Temperature 96.7 F L 97.0 F L 97.2 F L Pulse Rate 83 93 89 Respiratory Rate 18 18 17 Blood Pressure 146/70 H 148/89 H 120/80 Pulse Oximetry 93 96 91 Intake/Output Intake/Output: Intake & Output 05/15/21 05/16/21 05/17/21 05/18/21 23:59 23:59 23:59 23:59 Intake Total 3980 2800 3100 1200 Output Total 600 2800 Balance 3380 0 3100 1200 Meds/Results Medications: Active Medications Generic Name Dose Route Start Last Admin Trade Name Freq PRN Reason Stop Dose Admin Aspirin 325 mg 05/15/21 09:00 05/18/21 09:20 Aspirin 325 Mg Tablet BY MOUTH 325 mg DAILY LOLY Administration Atorvastatin Calcium 20 mg 05/15/21 09:00 05/16/21 09:01 Atorvastatin 20 Mg Tablet PO 20 mg DAILY LOLY Administration Enoxaparin Sodium 40 mg 05/15/21 09:00 05/18/21 09:21 Enoxaparin 40 Mg/0.4 Ml Syringe SUB-Q 40 mg DAILY LOLY Administration Escitalopram Oxalate 20 mg 05/15/21 09:00 05/18/21 09:20 Escitalopram Oxalate 10 Mg Tablet PO 20 mg QAM LOLY Administration Metronidazole 500 mg in 100 mls @ 100 mls/hr 05/14/21 18:00 05/18/21 07:20 Flagyl 500 Mg/Iso Soln 100 Ml IVPB Infused Q6H LOLY Infusion
[2021-05-18 14:00] VITALS: BP 115/75; PULSE 93; RESP 16; TEMP 36; O2SAT 96
[2021-05-18] MEDS: CIPROFLOXACIN 400 MG/D5W 200ML 200 ML 200 MG IVPB (17:04)
[2021-05-18] MEDS: ZOLPIDEM TARTRATE (*CRX) 5 MG TABLET 10 MG PO (20:29)
[2021-05-18 21:17] VITALS: BP 141/84; PULSE 94; RESP 20; TEMP 36; O2SAT 92
[2021-05-19 05:25] VITALS: BP 125/76; PULSE 98; RESP 22; TEMP 36; O2SAT 98
[2021-05-19] MEDS: metroNIDAZOLE 500 MG/ISO 100ML 500 MG/100 ML BAG 100 MG IVPB ×2 (05:30→12:43)
[2021-05-19 05:55] LABS: Hematocrit 36.5 % (37.0-47.0); Hemoglobin 11.3 g/dL (12.0-15.0); Mean Corpuscular Hemoglobin 28.5 pg (26-34); Mean Corpuscular Volume 91.9 fl (80-100); Mean Platelet Volume 10.3 fl (7.4-10.4); Platelet Count Result 334 k/mm3 (150-375); Red Blood Count 3.97 M/mm3 (4.2-5.4); Red Cell Distribution Width 14.5 % (11.5-14.5); White Blood Count 7.1 K/mm3 (4.5-10.0)
[2021-05-19 06:37] LABS: Alanine Aminotransferase 29 U/L (4-35); Albumin Level 2.7 g/dL (3.5-5.1); Alkaline Phosphatase 76 U/L (38-126); Anion Gap 9 mmol/L (8-16); Aspartate Amino Transferase 53 U/L (14-36); Bilirubin,Total 0.4 mg/dL (0.2-1.3); Blood Urea Nitrogen 4 mg/dL (7-17); Calcium 8.6 mg/dL (8.4-10.2); Carbon Dioxide 27 mmol/L (22-30); Chloride 102 mmol/L (98-107); Estimated CRCL calculation 87 ml/min; Estimated Glomerular Filt Rate > 60; Glucose 103 mg/dL (65-110); Magnesium 1.9 mg/dL (1.6-2.3); Potassium 2.8 mmol/L (3.4-5.0); Sodium 138 mmol/L (137-145)
[2021-05-19] MEDS: ASPIRIN 325 MG TABLET BY MOUTH (08:22)
[2021-05-19] MEDS: ESCITALOPRAM OXALATE 10 MG TABLET 20 MG PO (08:22)
[2021-05-19] MEDS: ENOXAPARIN 40 MG/0.4 ML SYRINGE SUB-Q (08:22)
--- NOTE | 2021-05-19 09:10 | WPDGIPROGNO ---
Progress Note: A&P Assessment and Plan (1) Constipation: Code(s): K59.00 - Constipation, unspecified Status: Acute Assessment and Plan: Constipation now resolved. Likely this accounts for abnormality seen on CT scan. Most likely constipation related to decreased mobility and narcotic pain medications after knee replacement. Recommend patient take MiraLax on a daily basis if needed. Limit narcotic use. She can follow up in the office if bowel problems persist. (2) Colitis: Code(s): K52.9 - Noninfective gastroenteritis and colitis, unspecified Status: Acute Assessment and Plan: Colitis seen on CT scan likely related to constipation. I see no trouble with empiric antibiotics for week if necessary. No need to repeat colonoscopy as it was done recently. (3) Obesity: Code(s): E66.9 - Obesity, unspecified Status: Acute (4) History of left knee replacement: Code(s): Z96.652 - Presence of left artificial knee joint Status: Resolved Subjective Date/time seen: 05/19/21 09:10 Patient alert and comfortable this morning. Constipation now resolved. Tolerating diet. No abdominal pain. Review of Systems Review of Systems: All systems reviewed & are unremarkable except as noted in HPI and below Exam Narrative: Physical exam patient is alert. Comfortable at rest. Abdomen bowel sounds present soft nontender. Objective Data Vital Signs Vital Signs: Vital Signs - 24 hr 05/18/21 14:00 05/18/21 21:17 05/19/21 05:25 Temperature 96.8 F L 96.8 F L 96.8 F L Pulse Rate 93 94 98 Respiratory Rate 16 20 22 H Blood Pressure 115/75 141/84 H 125/76 Pulse Oximetry 96 92 98 Intake/Output Intake/Output: Intake & Output 05/16/21 05/17/21 05/18/21 05/19/21 23:59 23:59 23:59 23:59 Intake Total 2800 3100 2640 710 Output Total 2800 900 1000 Balance 0 3100 1740 -290 Meds/Results Medications: Active Medications Generic Name Dose Route Start Last Admin Trade Name Freq PRN Reason Stop Dose Admin Aspirin 325 mg 05/15/21 09:00 05/19/21 08:22 Aspirin 325 Mg Tablet BY MOUTH 325 mg DAILY LOLY Administration Atorvastatin Calcium 20 mg 05/15/21 09:00 05/16/21 09:01 Atorvastatin 20 Mg Tablet PO 20 mg DAILY LOLY Administration Enoxaparin Sodium 40 mg 05/15/21 09:00 05/19/21 08:22 Enoxaparin 40 Mg/0.4 Ml Syringe SUB-Q 40 mg DAILY LOLY Administration Escitalopram Oxalate 20 mg 05/15/21 09:00 05/19/21 08:22 Escitalopram Oxalate 10 Mg Tablet PO 20 mg QAM LOLY Administration Metronidazole 500 mg in 100 mls @ 100 mls/hr 05/14/21 18:00 05/19/21 06:30 Flagyl 500 Mg/Iso Soln 100 Ml IVPB Infused Q6H LOLY Infusion Ciprofloxacin/Dextrose 200 mls @ 200 mls/hr 05/15/21 16:00 05/18/21 18:05 Cipro 400 Mg/D5w 200 Ml IVPB Infused Q24H LOLY Infusion Lactated Ringer's 1,000 mls @ 75 mls/hr 05/17/21 15:55 05/18/21 09:31 Lr - Lactated Ringers Iv IV CONT 75 mls/hr .[id number] LOLY Administration Potassium Chloride 500 mls @ 125 mls/hr 05/19/21 06:40 05/19/21 06:48 Kcl 40 Meq/D5w 500 Ml Peripheral IVPB 05/19/21 10:39 125 mls/hr ONCE ONE Administration Lactulose 30 gm 05/17/21 17:00 05/18/21 17:07 Lactulose 20 Gm/30 Ml Udc PO Not Given BID LOLY Multivitamins/Calcium 1 tablet 05/15/21 09:00 05/16/21 09:02 Therapeutic Multivitamins/Minerals Tab (*Bkc) PO 1 tablet DAILY LOLY Administration Ondansetron HCl 4 mg 05/14/21 08:32 05/18/21 01:29 Ondansetron Inj 4 Mg/2 Ml Vial IV PUSH 4 mg Q4H PRN Administration Nausea Polyethylene Glycol 17 gm 05/15/21 09:00 05/18/21 09:21 Polyethylene Glycol 3350 17 Gm Powd.Pack PO 17 gm QAM LOLY Administration Potassium Chloride 40 meq 05/15/21 08:00 05/16/21 09:01 Potassium Chloride 20 Meq Tablet.Er PO 40 meq DAILY@0800 LOLY Administration Prochlorperazine Edisylate 10 mg 05/16/21 20:31 05/17/21 22:18 Prochlo
[2021-05-19 12:05] LABS: Renin 0.35 ng/mL/h (0.25-5.82)
[2021-05-19 13:59] VITALS: BP 118/63; PULSE 96; TEMP 36.1; O2SAT 93
[2021-05-19 14:38] LABS: Anion Gap 11 mmol/L (8-16); Blood Urea Nitrogen 4 mg/dL (7-17); Calcium 8.8 mg/dL (8.4-10.2); Carbon Dioxide 28 mmol/L (22-30); Chloride 98 mmol/L (98-107); Estimated CRCL calculation 87 ml/min; Estimated Glomerular Filt Rate > 60; Glucose 146 mg/dL (65-110); Potassium 3.2 mmol/L (3.4-5.0); Sodium 137 mmol/L (137-145)
[2021-05-19] MEDS: POTASSIUM CHLORIDE 20 MEQ TABLET 40 MEQ PO (15:04)
--- NOTE | 2021-05-20 07:04 | PM.DS ---
DS: Admitting Diagnosis Admitting Diagnosis colitis <Guera AGiuliana Biancamus PA-C - Last Filed: 05/20/21 07:10> DS: Discharge Diagnosis Discharge Diagnosis (1) Colitis: Code(s): K52.9 - Noninfective gastroenteritis and colitis, unspecified <Guera AGiuliana Cadmus, PA-C - Last Filed: 05/20/21 07:10> Status: Acute <Guera A. Cadmus, PA-C - Last Filed: 05/20/21 07:10> Assessment and Plan: symptoms are improving and the patient is finally having stool -continue Cipro and Flagyl outpt -GI was consulted, no need to repeat colonoscopy <Guera A. Cadleti, PA-C - Last Filed: 05/20/21 07:10> (2) Constipation: Code(s): K59.00 - Constipation, unspecified <Guera A. Cadmus, PA-C - Last Filed: 05/20/21 07:10> Status: Acute <Guera AGiuliana Cadmus, PA-C - Last Filed: 05/20/21 07:10> Assessment and Plan: resolved -She has been constipated for weeks -she will continue a bowel regimen at home and avoid narcotics if possible <Guera A. Cadmus, PA-C - Last Filed: 05/20/21 07:10> (3) Hypokalemia: Code(s): E87.6 - Hypokalemia <Guera A. Cadmus, PA-C - Last Filed: 05/20/21 07:10> Status: Acute <Guera A. Cadmus, PA-C - Last Filed: 05/20/21 07:10> Assessment and Plan: low again, likely due to diarrhea and appetite -plan to supplement 2 additional days and repeat bmp in one week <Guera A. Cadmus, PA-C - Last Filed: 05/20/21 07:10> (4) Major depressive disorder, recurrent, moderate: Code(s): F33.1 - Major depressive disorder, recurrent, moderate <Guera A. Cadmus, PA-C - Last Filed: 05/20/21 07:10> Status: Acute <Guera A. Cadmus, PA-C - Last Filed: 05/20/21 07:10> Assessment and Plan: continue with home medication of Lexapro (hold while on abx) <Guera العلي PA-C - Last Filed: 05/20/21 07:10> (5) Mixed hyperlipidemia: Code(s): E78.2 - Mixed hyperlipidemia <LYLY EllingtonC - Last Filed: 05/20/21 07:10> Status: Chronic <LYLY EllingtonC - Last Filed: 05/20/21 07:10> Assessment and Plan: chronic <LYLY EllingtonC - Last Filed: 05/20/21 07:10> (6) Anxiety: Code(s): F41.9 - Anxiety disorder, unspecified <Guera العيل PA-C - Last Filed: 05/20/21 07:10> Status: Acute <LYLY EllingtonC - Last Filed: 05/20/21 07:10> Assessment and Plan: chornic and stable <Guera العلي PA-C - Last Filed: 05/20/21 07:10> DS: Summary Hospital Course Hospital Course: Date of service 05/19/2021 Patient is a 66-year-old female who presented emergency room for abdominal pain and constipation. Vitals in the ER were temperature 98.2?, pulse 109, respiratory rate 17, blood pressure 145/98, pulse ox 97 on room air. CBC within normal limits with exception of platelets 492. BMP showed hypokalemia 2.6. CT of the abdomen pelvis showed focal colitis of the distal descending and proximal sigmoid colon most likely infectious or inflammatory. She was admitted to the hospitalist service and started on antibiotics and GI was consulted. She improved with conservative treatment and was able to advance her diet as tolerated after many days in the hospital. She had significant issues with constipation and had fecal impaction which improved with enemas and laxatives. She had a screening colonoscopy in June 2020 and GI did not believe this needed to be repeated as the patient improved with antibiotics and bowel movements. She continued to have intermittent hypokalemia which was replaced. The day of discharge was 3.2 a few additional days for given for outpatient treatment as well. She has a repeat BMP in 1 week and results will be sent to her primary care physician. I called her primary care physician and spoke with her about the patient's hospitalization and plan of care outpatient. She agr
== END 2021-05-19 16:00 | disposition home or self-care (01) | DRG 641 ==
LOC: ANHED 08:50 → ANH2MED 09:14
PROVIDERS: Emergency Medicine; Nurse Practitioner; Admitting Provider Hospitalist; Emergency Provider General Practice; PCP Family Medicine; Visit Provider Physician Assistant
DX: E87.6 Hypokalemia; F33.1 Major depressive disorder, recurrent, moderate; K52.9 Noninfective gastroenteritis and colitis, unspecified; K56.41 Fecal impaction; E78.2 Mixed hyperlipidemia; F41.9 Anxiety disorder, unspecified; I27.20 Pulmonary hypertension, unspecified; E66.9 Obesity, unspecified; Z79.899 Other long term (current) drug therapy; Z87.891 Personal history of nicotine dependence; Z96.652 Presence of left artificial knee joint
CPT/HCPCS: 36415; 74018; 74177; 80048; 80053; 80076; 81003; 82088; 82533; 83735; 84244; 85025; 85027; 93005; 96361; 96365; 96366; 96367; 96368; 96372; 96375; 96376; 97110; 97161; 97165; 99285; A9270; G0378; J0744; J0780; J1650; J2060; J2212; J2405; J2765; J3475; J3480; J7030; J7120; Q9967

== ENCOUNTER 2021-08-18 14:02 | Outpatient (CLI) | payer MEDICARE, SELFPAY ==
--- NOTE | ~2021-08-18 | XR_ITS ---
EXAMINATION: XR finger 3rd RT min 2V DATE: 08/18/2021 14:24 INDICATION: Right hand second digit pain and swelling. TECHNIQUE: 4 views of right hand third digit were obtained. COMPARISON: None. FINDINGS: Bone alignment is normal. No fracture. There is severe joint space narrowing of third dista l interphalangeal joint with erosions. IMPRESSION: 1. 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 The differential diagnosis in cludes septic arthritis, erosive osteoarthritis, and psoriatic arthritis. Reviewed, dictated and finalized at location A. INE BUFFER IMPRESSION: 1. 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 The dif ferential diagnosis includes septic arthritis, erosive osteoarthritis, and psor iatic arthritis.
== END 2021-08-18 14:03 | disposition home or self-care (01) ==
LOC: ANHIMG 14:06
PROVIDERS: PCP Family Medicine; Visit Provider Family Medicine
DX: M79.644 Pain in right finger(s) (principal); M79.89 Other specified soft tissue disorders; M13.841 Other specified arthritis, right hand
CPT/HCPCS: 73140

== ENCOUNTER 2021-08-30 08:47 | Outpatient (CLI) | payer MEDICARE, SELFPAY | END 2021-08-30 08:48 | disposition home or self-care (01) | LOC: ANHSURGERY 08:50 | PROVIDERS: PCP Family Medicine; Visit Provider Obstetrics & Gynecology | DX: Z01.818 Encounter for other preprocedural examination (principal); N83.209 Unspecified ovarian cyst, unspecified side | CPT/HCPCS: 36415; 86850; 86900; 86901 ==

== ENCOUNTER 2021-09-02 01:13 | Day surgery (SDC) | payer MEDICARE, SELFPAY ==
[2021-08-25 15:28] VITALS: BMI 34.3
--- NOTE | 2021-08-25 15:34 | PC.NURSE ---
Report to the Outpatient Waiting Room, entrance under the green pavilion located off [facility], at time _1000 on date __09/02/21 . OR Time: _1200 . - You and your visitor will be asked a series of questions to screen for COVID 19 for your protection. - A mask is required within the hospital. - Only one visitor is allowed at this time. Patient visitors will be guided where to wait when not with patient. Preoperative COVID Testing Requirements: No COVID Test needed if: (proof is required; if not received patient will have Rapid Test prior to entry) - Patient has received COVID Vaccine at least 14 days prior to procedure date or - Patient has positive COVID test result within last 90 days of surgery date. COVID Test needed if above criteria is not met If not COVID vaccinated a COVID test must be conducted within 72 hours of surgery and patient is asked to isolate self from time of testing until procedure. You will go to the [employer] [facility] for your COVID testing. The [employer] [facility] site is located at the corner of [address] [facility]. You will only be called if COVID results are positive and your surgeon may reschedule your elective surgery date. Patients may have clear liquids (water, carbonated beverages, clear teas, apple juice) until 3 hours prior to surgery with a maximum of 20 ounces. - No food from midnight until time of surgery - Infants may have breast milk until 4 hours before surgery, infant formula 6 hours prior to surgery. - Children will be allowed to drink immediately following surgery. If applicable, please bring a bottle or sippy cup to assist with drinking. Juice, water, soda, and popsicles are readily available. For infants on formula, please bring formula the day of surgery. Pacifiers are allowed. Take the following medications with a SIP of water the morning of surgery: ___ALPRAZOLAM IF NEEDED, LEXAPRO Medications to discontinue per physician ___PT STATES ALL VITAMINS AND SUPPLEMENTS 7 DAYS PRE OP PER DR DANNY VALDIVIA Date to take last dose__08/25/21 Please no make-up, nail malay, hairspray, perfume, deodorant, or body powder the day of surgery. No jewelry (including any body piercings) or valuables the day of surgery, leave them at home. Please take a shower or bath the night before, or the morning of, surgery with an antibacterial soap. Wear comfortable, loose fitting clothing. Children are encouraged to wear pajamas. - Jewelry must be removed prior to entering the operating room. Rings and piercings that are not removed may be cut off. - The hospital will not accept responsibility for valuables. - Please leave all valuables, including medications, at home the day of surgery. If you are going home after surgery, a licensed service parts driver must drive you home. - NO public transportation without another adult. - We recommend that an adult stay with you for 24 hours following discharge. - We also recommend that you do not drive, make important decision, drink alcoholic beverages, or take any drugs that were not prescribed by your health care provider for at least 24 hours after your discharge time. For Pediatric surgeries, we recommend two adults accompany the child home (only one inside the building at this time). Follow any additional instructions given to you from your surgeon. Telephone instructions given to PATIENT and asked if any additional questions and then verbalized understanding. Patient advised to call surgeon office or pre surgery nurse liaison [phone] if any additional questions.
--- NOTE | 2021-08-30 15:56 | PM.IMHP ---
H&P: HPI History of Present Illness Date/Time: 08/30/21 15:56 66-year-old female admitted for robotic total vaginal hysterectomy bilateral salpingo for oophorectomy secondary to uterine prolapse and dyspareunia. She also has a large right complex ovarian cyst. She had a CT scan that showed a complex ovary and ultrasound showed a right complex cyst in her CA 125 was normal. She opts for definitive therapy via hysterectomy bilateral salpingo-oophorectomy. Risks and benefits reviewed including not exclusive of , aspiration pneumonia, bleeding, transfusion, perforation injury to bowel, bladder, ureters, or other internal organs with need for open laparotomy. She received the ACOG handout entitled hysterectomy as well as de Char handout. She had all questions answered and asked to proceed Chief Complaint: Pelvic pain/uterine prolapse/dyspareunia/complex right ovarian cyst Review of Systems Review of Systems: All systems reviewed & are unremarkable except as noted in HPI and below PMFSH Past Medical History Medical History Cataract (~2015) Chronic midline low back pain without sciatica Hepatitis C antibody test negative (09/16/19) Major depressive disorder, recurrent, moderate Migraine Mixed hyperlipidemia Obesity Pulmonary hypertension Surgical History Surgical History H/O adenoidectomy (~1978) H/O breast augmentation (~1989) H/O colonoscopy H/O hemorrhoidectomy H/O hernia repair (~1986) History of appendectomy (~1978) History of bilateral tubal ligation History of left knee replacement April 18, 2021 History of tonsillectomy (~1973) History of uterine suspension procedure (~1985) Family History Family History Father Diabetes mellitus Cerebrovascular accident Grandparent Family history of glaucoma Mother Family history of elevated blood lipids Family history of malignant neoplasm Family history of pancreatic cancer Sibling Family history of elevated blood lipids Social History Social History Social History: The patient lives with her . 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 The patient is a full code. The patient has 3 children. Patient is retired from [employer]. The patient is a former smoker. She quit in 2016. She does not use any marijuana alcohol or illicit drugs. 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 Substance use: never Substance use type: does not use Additional living arrangements comments: [place] Gender identity (if verbalized by the patient): Female Sexual Orientation (if Verbalized by the Patient): Straight or Heterosexual Spiritual care concerns: No Meds Home Medications and Allergies Home Medications Medication Instructions Recorded Confirmed Type atorvastatin 20 mg PO DAILY 05/12/21 08/26/21 History potassium chloride 20 mEq 20 meq PO DAILY #90 tablet 06/14/21 08/26/21 Rx tablet,extended release alprazolam 0.25 mg tablet 0.25 mg PO TID PRN #30 tablet 08/18/21 08/26/21 Rx escitalopram oxalate 20 mg tablet See Rx Instructions .ROUTE 08/22/21 08/26/21 Rx .COMPLEX #90 tablet zolpidem 10 mg tablet 10 mg PO QHS #30 tablet 08/25/21 08/26/21 Rx Allergies Allergy/AdvReac Type Severity Reaction Status Date / Time Sulfa (Sulfonamide Allergy Unknown Skin Verified 08/30/21 09:47 Antibiotics) Reaction/RASH Exam Const: General: no acute distress Eyes: General: appearance normal, both eyes and all related structures Neck: Neck: supple and no JVD Thyroid:
[2021-09-02] VITALS (13 sets, daily range): BP systolic 91–136; BP diastolic 61–85; PULSE 53–93; RESP 12–18; TEMP 36.2–36.8; O2SAT 88–98
--- NOTE | 2021-09-02 06:58 | WPDHPUPDATE1 ---
History and Physical Update Update Date/Time: 09/02/21 06:58 History and Physical has been reviewed, including an updated exam of the patient. There are NO changes in the patient's condition. Risks, benefits, and alternatives have been discussed and questions answered. Patient agrees to proceed with procedure.
--- NOTE | 2021-09-02 10:50 | WPDANESEPPF ---
Anes - Initial Pre Proc Eval Procedure: Operation Date: 09/02/21 12:00 Proposed Procedures p Robotic Assisted Total Vaginal Hysterectomy with Bilateral Salpingo Oophorectomy - Jw Gonzalez MD Date/Time: 09/02/21 10:50 Surgeon: Jw Gonzalez MD Pre Op Diagnosis: pelvic pain,right ovarian cyst Patient Data Age: 66 Gender: F Height: 1.63 m Weight: 90.75 kg Allergies Allergy/AdvReac Type Severity Reaction Status Date / Time Sulfa (Sulfonamide Allergy Unknown Skin Verified 09/02/21 10:25 Antibiotics) Reaction/RASH Home Medications Medication Instructions Recorded Confirmed Type atorvastatin 20 mg PO DAILY 05/12/21 08/26/21 History potassium chloride 20 mEq 20 meq PO DAILY #90 tablet 06/14/21 08/26/21 Rx tablet,extended release alprazolam 0.25 mg tablet 0.25 mg PO TID PRN #30 tablet 08/18/21 08/26/21 Rx escitalopram oxalate 20 mg tablet See Rx Instructions .ROUTE 08/22/21 08/26/21 Rx .COMPLEX #90 tablet zolpidem 10 mg tablet 10 mg PO QHS #30 tablet 08/25/21 08/26/21 Rx hydrocodone-acetaminophen 1 tablet PO Q4H PRN #30 tablet 09/02/21 Rx Patient hx anesthesia problems: post op nausea/vomiting Family hx anesthesia problems: none Results Review: All pre-operative results and documents have been reviewed as part of the pre-operative evaluation. [facility] Past Medical History Medical History Cataract (~2015) Chronic midline low back pain without sciatica Hepatitis C antibody test negative (09/16/19) Major depressive disorder, recurrent, moderate Migraine Mixed hyperlipidemia Obesity Pulmonary hypertension Surgical History Surgical History H/O adenoidectomy (~1978) H/O breast augmentation (~1989) H/O colonoscopy H/O hemorrhoidectomy H/O hernia repair (~1986) History of appendectomy (~1978) History of bilateral tubal ligation History of left knee replacement April 18, 2021 History of tonsillectomy (~1973) History of uterine suspension procedure (~1985) Family History Family History Father Diabetes mellitus Cerebrovascular accident Grandparent Family history of glaucoma Mother Family history of elevated blood lipids Family history of malignant neoplasm Family history of pancreatic cancer Sibling Family history of elevated blood lipids Social History Social History Social History: The patient lives with her . The is a durable power sewer pipe layer for healthcare. The patient is a full code. The patient has 3 children. Patient is retired from [employer]. The patient is a former smoker. She quit in 2016. She does not use any marijuana alcohol or illicit drugs. 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 Substance use: never Substance use type: does not use Living arrangements: with family Additional living arrangements comments: DAR[place] Gender identity (if verbalized by the patient): Female Sexual Orientation (if Verbalized by the Patient): Straight or Heterosexual Spiritual care concerns: No Anes - Eval Final PreProcedure Day of Procedure 09/02/21 10:50 Patient weight: obese Heart: regular rate and rhythm Lungs: decreased breath sounds Airway: Mallampati scale class II Neurological: alert and oriented Last oral intake: >/= 8 hours ASA classification: III Emergent: no Anesthetic plan: proceed Anesthesia type and monitoring: general ETT and standard monitoring Results Review: All pre-operative results and documents have been reviewed as part of the pre-operative ev
[2021-09-02] MEDS: SCOPOLAMINE 1.5 MG PATCH TRANSDERM (11:01)
[2021-09-02] MEDS: ACETAMINOPHEN 500 MG TABLET 1000 MG PO (11:01)
[2021-09-02] MEDS: ceFAZolin 2 GM/D5W 50 ML 2 GM/50 ML BAG IVPB (11:11)
--- NOTE | 2021-09-02 12:12 | P.OP_ITS ---
Procedure Note - Detailed Date of Procedure 09/02/21 Pre-op Diagnosis pelvic pain,right ovarian cyst Post-op Diagnosis same Procedure Performed Robotic total vaginal hysterectomy bilateral salpingo-oophorectomy Surgeon Jw Gonzalez MD Anesthesia general Indications This is a 66-year-old female with prolapse and complex right ovarian cyst. Findings Moderate size right ovarian cyst. Moderately enlarged uterus. Uterine prolapse. Description of Procedure Patient was prepped draped in normal sterile fashion placed in dorsal lithotomy position. Under excellent general trach anesthesia weighted speculum placed posterior fornix vagina. Anterior lip of cervix grasped with single-tooth tenaculum and uterus sounded to 10cm. Serial dilatation with fragmented dilators performed followed passes the 10. LISA and the number Three cold cup. The remaining near the instruments removed and a 16 Kosovan catheter was placed in the bladder to drain clear urine. Gloves were changed A supraumbilical incision made the Veress needle passed in the abdomen. Abdomen filled with CO2 gas [id number]. The 8mm trocar advanced in the abdomen the downside visualized. No injury was seen. The patient placed in Trendelenburg and right left lateral quadrant incision made the 8mm trocars advanced under direct visualization assuring no injury. An 8mm trocar was advanced in the right upper quadrant under direct visualization assuring no injury. The robot was docked. Attention was turned to the automobile club travel counselor. The left round ligament grasped, burned, cut. Anteriorly a bladder flap was formed by sharply dissecting the peritoneum and reflecting the bladder caudally away from the cervix and uterus to the opposite round ligament which was clamped, burned, cut. The left infundibulopelvic structure was skeletonized to remove the left ovary and tube serially clamped burned and cut and brought to the level of previously cut round ligament. Removing the right adnexa the infundibulopelvic structure on the right was skeletonized. Was clamped, burned, cut and brought to the level of the previously cut round ligament. The cardinal and broad ligaments on the right right were then serially skeletonized. They were clamped, burned, cut hugging along the cervix and uterus until the uterine vessels could be seen on the right. These were then individually clamped, burned, cut. In like fashion the cardinal broad ligaments were clamped and burned the left hugging the cervix and uterus clamping burning cutting until the uterine vessels could be seen on the left. These were individually clamped, burned, cut. Excellent blanching the uterus was seen in a colpotomy incision made. Cervix uterus ovaries and tubes removed through the vagina. The vagina was then closed with continuous running V lock from lateral edge to lateral edge back to the midline. Hemostasis was assured and blood loss was estimated at5cc. The robot was undocked. The gas removed from the abdomen. The trocars removed from the abdomen and the incisions closed with 4 Monocryl and glue. The patient was awakened and went to recovery in satisfactory condition. All sponge, needle, instrument counts were correct. There were no immediate complications noted Estimated Blood Loss 5 Drains No Packing No Pathology yes Complications No immediate complications Condition stable Disposition PACU
[2021-09-02] MEDS: LACTATED RINGERS 1,000 ML 30 ML IV CONT (12:21)
[2021-09-02] MEDS: fentaNYL CITRATE INJ (*CRX) 100 MCG/2 ML VIAL 25 MCG IV PUSH ×2 (12:51→13:14)
--- NOTE | 2021-09-02 14:00 | PC.NURSE ---
Patient arrived to unit at 1400 via bed.
[2021-09-02] MEDS: DEXTROSE 5%/LACTATED RINGERS 1,000 ML 125 ML IV CONT ×2 (15:00→21:16)
[2021-09-02] MEDS: KETOROLAC 30 MG/ML VIAL (*BKC) IV PUSH ×2 (15:19→21:05)
[2021-09-02] MEDS: DOCUSATE SODIUM 100 MG CAPSULE PO (17:19)
[2021-09-02] MEDS: ZOLPIDEM TARTRATE (*CRX) 5 MG TABLET 10 MG PO (21:16)
--- NOTE | 2021-09-02 21:41 | PC.NURSE ---
O2 sats 88-90%, O2 applied at 2L/min/nc, sats increased to 93%
[2021-09-03] MEDS: IBUPROFEN 600 MG TABLET PO ×2 (03:55→10:20)
[2021-09-03 04:00] VITALS: BP 109/64; PULSE 82; RESP 18; TEMP 37.1; O2SAT 97
[2021-09-03 05:11] LABS: Basophils Percent Auto 0.1 % (0.2-1.2); Hemoglobin 12.2 g/dL (12.0-15.0); Immature Granulocyte Absolute 0.06 K/mm3 (0.00-0.031); Immature Granulocyte Percent A 0.5 % (0-0.5); Lymphocytes Absolute Auto 1.22 K/mm3 (0.9-3.2); Mean Corpuscular Hemoglobin 28.6 pg (26-34); Mean Corpuscular Volume 86.7 fl (80-100); Mean Platelet Volume 10.8 fl (7.4-10.4); Monocytes Absolute Auto 0.7 K/mm3 (0.1-0.6); Monocytes Percent Auto 5.7 % (2.6-8.5); Neutrophils Absolute Auto 10.3 K/mm3 (1.3-6.7); Neutrophils Percent Auto 83.7 % (45.5-73.1); Platelet Count Result 294 k/mm3 (150-375); Red Blood Count 4.27 M/mm3 (4.2-5.4); Red Cell Distribution Width 14.4 % (11.5-14.5); White Blood Count 12.2 K/mm3 (4.5-10.0)
[2021-09-03 07:30] VITALS: BP 98/60; PULSE 82; RESP 16; TEMP 37.1; O2SAT 92
--- NOTE | 2021-09-03 09:36 | WPDANESPN ---
Anes - Prog Note Post-Op Date/Time: 09/03/21 09:36 Cardiovascular status: normal Respiratory status: normal Airway patency: baseline Mental status: baseline Post-Op hydration status: normal Vital Signs: Last Vital Signs Temp 98.8 F 09/03/21 07:30 Pulse 82 09/03/21 07:30 Resp 16 09/03/21 07:30 BP 98/60 L 09/03/21 07:30 Pulse Ox 92 09/03/21 07:30 Pain Score (VAS): 0 I/O: Intake & Output 09/02/21 09/03/21 09/03/21 23:59 07:59 15:59 Intake Total 1500 200 Output Total 250 300 Balance 1250 -100 Laboratory Tests 09/03/21 03:50 09/03/21 03:50 WBC 12.2 H RBC 4.27 Hgb 12.2 Hct 37.0 MCV 86.7 MCH 28.6 MCHC 33.0 RDW 14.4 Plt Count 294 MPV 10.8 H Immature Gran % (Auto) 0.5 Neut % (Auto) 83.7 H Lymph % (Auto) 10.0 L Shannon % (Auto) 5.7 Eos % (Auto) 0.0 Baso % (Auto) 0.1 L Lymph # (Auto) 1.22 Shannon # (Auto) 0.7 H Eos # (Auto) 0.0 Baso # (Auto) 0.0 Abs Immat Gran (auto) 0.06 H Absolute Neuts (auto) 10.3 H Absolute Nucleated RBC 0.0 Nucleated RBC % 0.0 Post-procedural complaints: none Patient Feedback: Patient satisfied with anesthetic care.
--- NOTE | 2021-09-03 09:55 | PM.GYNPNOP ---
ASSISTANT PRESSMAN - A/P Postoperative Procedures: Procedures Operation Date: 09/02/21 12:00 Actual Procedure Side Surgeon p Robotic Assisted Total Vaginal Hysterectomy with Bilateral Salpingo Oophorectomy Bilateral Jw Gonzalez MD A: POD#1, doing well. P: Home to f/u 2 weeks. Time Spent With Patient Time with patient: less than 15 minutes ASSISTANT PRESSMAN- PN:Subj Post-Op Subjective Date/time seen: 09/03/21 09:55 Interval history: Pain OK. Tolerating diet. Voiding. Would like to go home. Exam Narrative: AVSS I/O OK ABD soft, nontender. Incisions c/d/i. EXT nontender ASSISTANT PRESSMAN - PN: Obj Data Vital Signs Vital Signs: Vital Signs - 24 hr 09/02/21 11:20 09/02/21 12:21 09/02/21 12:35 Temperature 36.8 C 36.2 C L Pulse Rate 81 68 60 Respiratory Rate 18 12 13 Blood Pressure 126/85 136/70 127/66 Pulse Oximetry 96 97 98 09/02/21 12:50 09/02/21 13:00 09/02/21 13:15 Temperature Pulse Rate 53 L 53 L 53 L Respiratory Rate 13 13 13 Blood Pressure 126/69 120/61 115/66 Pulse Oximetry 94 94 94 09/02/21 13:30 09/02/21 13:44 09/02/21 14:10 Temperature 36.2 C L Pulse Rate 53 L 57 L 57 L Respiratory Rate 13 13 16 Blood Pressure 112/62 114/63 112/68 Pulse Oximetry 94 94 90 09/02/21 20:11 09/02/21 21:30 09/02/21 21:35 Temperature 36.3 C L Pulse Rate 74 Respiratory Rate 18 Blood Pressure 110/63 Pulse Oximetry 96 88 L 93 09/02/21 22:43 09/03/21 04:00 09/03/21 07:30 Temperature 36.4 C L 37.1 C 37.1 C Pulse Rate 93 82 82 Respiratory Rate 16 18 16 Blood Pressure 91/65 L 109/64 98/60 L Pulse Oximetry 95 97 92 Intake/Output Intake/Output: Intake & Output 08/31/21 09/01/21 09/02/21 09/03/21 23:59 23:59 23:59 23:59 Intake Total 1950 200 Output Total 280 300 Balance 1670 -100 Meds/Results Medications: Active Medications Generic Name Dose Route Start Last Admin Trade Name Freq PRN Reason Stop Dose Admin Hydrocodone Bitart/Acetaminophen 1 tab 09/02/21 13:47 Hydrocodone/Acetaminophen (*Crx) 5-325 Mg Tablet PO Q3H PRN Pain Rated 5 or Less Hydrocodone Bitart/Acetaminophen 1 tab 09/02/21 13:47 Hydrocodone/Acetaminophen (*Crx) 10-325 Mg Tablet PO Q3H PRN Pain Rated 6 or Greater Docusate Sodium 100 mg 09/02/21 17:00 09/02/21 17:19 Docusate Sodium 100 Mg Capsule PO 100 mg BID LOLY Administration Enoxaparin Sodium 40 mg 09/03/21 09:00 Enoxaparin 40 Mg/0.4 Ml Syringe SUB-Q DAILY LOLY Dextrose/Lactated Ringer's 1,000 mls @ 125 mls/hr 09/02/21 13:47 09/02/21 21:16 Dextrose 5%/Lactated Ringers IV CONT 125 mls/hr .Q8H LOLY Administration Ibuprofen 600 mg 09/02/21 13:47 09/03/21 03:55 Ibuprofen 600 Mg Tablet PO 600 mg Q6H PRN Administration Cramping Ketorolac Tromethamine 30 mg 09/02/21 13:47 09/02/21 21:05 Ketorolac 30 Mg/Ml Vial (*Bkc) IV PUSH 09/07/21 13:46 30 mg Q6H PRN Administration Pain Rated 4-6 Naloxone HCl 0.1 mg 09/02/21 13:47 Naloxone Hcl 0.4 Mg/Ml Vial IV PUSH Q2M PRN Respiratory rate less than 10 Ondansetron HCl 4 mg 09/02/21 13:47 Ondansetron Inj 4 Mg/2 Ml Vial IV PUSH Q6H PRN Nausea And Vomiting Simethicone 80 mg 09/02/21 13:47 Simethicone 80 Mg Tab.Chew PO Q2H PRN Gas Zolpidem Tartrate 10 mg 09/02/21 17:12 09/02/21 21:16 Zolpidem Tartrate (*Crx) 5 Mg Tablet PO 10 mg HS PRN Administration Insomnia Labs CBC & Chem 7: 09/03/21 03:50 Labs: Laboratory Results - last 24 hr 09/03/21 03:50 WBC 12.2 H RBC 4.27 Hgb 12.2 Hct 37.0 MCV 86.7 MCH 28.6 MCHC 33.0 RDW 14.4 Plt Count 294 MPV 10.8 H Immature Gran % (Auto) 0.5 Neut % (Auto) 83.7 H Lymph % (Auto) 10.0 L Roberts % (Auto) 5.7 Eos % (Auto) 0.0 Baso % (Auto) 0.1 L Lymph # (Auto) 1.22 Roberts # (Auto) 0.7 H Eos # (Auto) 0.0 Baso # (Auto) 0.0 Abs Immat Gran (auto) 0.06 H Absolute Neuts (auto) 10.3 H Absolute Nucleated
[2021-09-03] MEDS: DOCUSATE SODIUM 100 MG CAPSULE PO (10:20)
[2021-09-03] MEDS: ENOXAPARIN 40 MG/0.4 ML SYRINGE SUB-Q (10:20)
== END 2021-09-03 10:35 | disposition home or self-care (01) ==
LOC: ANHSURGERY 09:48 → ANHOB2 13:48
PROVIDERS: PCP Family Medicine; Visit Provider Obstetrics & Gynecology
PROC: (CPT 58552; principal; 2021-09-02 12:00)
DX: R10.2 Pelvic and perineal pain (principal); D27.0 Benign neoplasm of right ovary; N88.8 Other specified noninflammatory disorders of cervix uteri; N80.0 Endometriosis of uterus; N81.4 Uterovaginal prolapse, unspecified; N94.10 Unspecified dyspareunia; I27.20 Pulmonary hypertension, unspecified; E78.2 Mixed hyperlipidemia; F33.1 Major depressive disorder, recurrent, moderate; E66.9 Obesity, unspecified; Z68.34 Body mass index [BMI] 34.0-34.9, adult; Z87.891 Personal history of nicotine dependence
CPT/HCPCS: 58552; S2900; 36415; 85025; 88307; 99199; A9270; J0690; J1650; J1885; J2250; J2270; J2310; J3010; J7030; J7120; J7121

== ENCOUNTER 2021-10-18 09:31 | Outpatient (CLI) | payer MEDICARE, SELFPAY ==
--- NOTE | ~2021-10-18 | MM_ITS ---
EXAMINATION: MM scrn ravi implant BI w ralf HISTORY: Screening mammogram TECHNIQUE: Craniocaudal and mediolateral oblique 3-D tomosynthesis images with implant displacement a nd synthetic 2-D images were generated. Craniocaudal and mediolateral oblique views of the breasts wi thout implant displacement were obtained using full field digital mammography. CAD analysis was submi tted and interpreted. COMPARISON: Comparison to multiple prior studies sequentially, with oldest reviewed study dated 12/01. BREAST PARENCHYMAL COMPOSITION: Breast composed of scattered areas of fibroglandular density. FINDINGS: There are stable bilateral breast asymmetries and calcifications. There is no evidence of s uspicious mass, calcification, or architectural distortion to suggest malignancy in either breast. Th ere has been no suspicious interval change. IMPRESSION: 1. No mammographic evidence of malignancy. 2. Recommend routine screening mammography in one year. BI-RADS Category 2: Benign finding(s). Reviewed, dictated and finalized at location A. INE MOLDER
== END 2021-10-18 09:32 | disposition home or self-care (01) ==
PROVIDERS: PCP Family Medicine; Visit Provider Family Medicine
DX: Z12.31 Encounter for screening mammogram for malignant neoplasm of breast (principal)
CPT/HCPCS: 77063; 77067

== ENCOUNTER 2021-12-20 09:49 | Outpatient (CLI) | payer MEDICARE, SELFPAY ==
--- NOTE | ~2021-12-20 | US_ITS ---
EXAMINATION: US aorta [facility] scrn DATE: 12/20/2021 10:10 INDICATION: Abdominal aortic aneurysm screening. TECHNIQUE: Grayscale, color Doppler, and pulsed Doppler images of the aorta and common iliac arteries were obtained. COMPARISON: CT abdomen and pelvis 05/14/2021 FINDINGS: The aorta is normal in caliber. The right common iliac artery is normal in caliber. The left common i liac artery is normal in caliber. IMPRESSION: 1. No abdominal aortic aneurysm. Reviewed, dictated and finalized at location A.
== END 2021-12-20 09:50 | disposition home or self-care (01) ==
LOC: ANHIMG 09:51
PROVIDERS: PCP Family Medicine; Visit Provider Family Medicine
DX: Z13.6 Encounter for screening for cardiovascular disorders (principal); Z87.891 Personal history of nicotine dependence
CPT/HCPCS: 76706

== ENCOUNTER 2022-02-14 11:38 | Emergency (ER) | payer MEDICARE, SELFPAY ==
[2022-02-14 11:59] VITALS: BP 111/84; PULSE 99; RESP 16; TEMP 36.6; O2SAT 99
[2022-02-14 12:33] LABS: Basophils Percent Auto 0.4 % (0.2-1.2); Eosinophils Absolute Auto 0.1 K/mm3 (0-0.3); Eosinophils Percent Auto 1.9 % (0-4.4); Hematocrit 47.6 % (37.0-47.0); Hemoglobin 15.6 g/dL (12.0-15.0); Immature Granulocyte Absolute 0.01 K/mm3 (0.00-0.031); Immature Granulocyte Percent A 0.2 % (0-0.5); Lymphocytes Absolute Auto 1.15 K/mm3 (0.9-3.2); Mean Corpuscular HGB Conc 32.8 g/dl (32-36); Mean Corpuscular Hemoglobin 28.4 pg (26-34); Mean Corpuscular Volume 86.7 fl (80-100); Mean Platelet Volume 9.9 fl (7.4-10.4); Monocytes Absolute Auto 0.4 K/mm3 (0.1-0.6); Monocytes Percent Auto 9.2 % (2.6-8.5); Neutrophils Absolute Auto 3.1 K/mm3 (1.3-6.7); Neutrophils Percent Auto 64.3 % (45.5-73.1); Platelet Count Result 205 k/mm3 (150-375); Red Blood Count 5.49 M/mm3 (4.2-5.4); Red Cell Distribution Width 13.3 % (11.5-14.5); White Blood Count 4.8 K/mm3 (4.5-10.0)
[2022-02-14 12:42] LABS: Alanine Aminotransferase 24 U/L (6-35); Albumin Level 4.3 g/dL (3.5-5.1); Alkaline Phosphatase 96 U/L (38-126); Anion Gap 9 mmol/L (8-16); Aspartate Amino Transferase 36 U/L (14-36); Bilirubin,Total 0.6 mg/dL (0.2-1.3); Blood Urea Nitrogen 11 mg/dL (7-17); Calcium 8.7 mg/dL (8.4-10.2); Carbon Dioxide 23 mmol/L (22-30); Chloride 102 mmol/L (98-107); Estimated CRCL calculation 50 ml/min; Estimated Glomerular Filt Rate > 60; Glucose 120 mg/dL (65-110); Lipase 112 U/L (23-300); Potassium 3.5 mmol/L (3.4-5.0); Sodium 134 mmol/L (137-145)
[2022-02-14 13:00] LABS: Appearance Urine Clear (Clear); Bilirubin Urine 1+ (Negative); Blood Urine Negative (Negative); Color Urine Yellow (Yellow); Glucose Urine UA Negative (Negative); Ketones Urine Negative (Negative); Leukocyte Esterase Ur 1+ LEU/UL (Negative); Nitrate Urine Negative (Negative); Protein Urine Negative (Negative); Specific Grav Ur 1.015 (1.001-1.035); Urobilinogen Urine 0.2 mg/dL (<2.0)
[2022-02-14 13:10] LABS: Add Urine Microscopic? YES; Mucus Urine Rare /lpf; Squamous Epithelial Cell Urine Few /hpf (Few); Transitional Epi Cells Urine Rare /hpf (None Seen)
--- NOTE | 2022-02-14 13:25 | ED.NAVMDI ---
HPI - Nausea/Vomiting/Diarrhea General Chief complaint: Nausea/Vomiting/Diarrhea Stated complaint: diarrhea x 6 days Time Seen by Provider: 02/14/22 13:24 Source: patient Mode of arrival: ambulatory Limitations: no limitations History of Present Illness HPI Narrative: Patient is a 66 years old white female presents to the ED with nausea, vomiting and diarrhea for the last 6 days. The vomiting and diarrhea are slowly improving, last vomiting was 2 days ago, last diarrhea was 3 episodes yesterday compared to at least 10 episodes a day. Patient denies any fever or chills. Patient grandkids had similar symptoms. Patient home COVID test is negative. Patient denies any abdominal pain or urinary symptoms. Related Data Home Medications Medication Instructions Recorded Confirmed sulfasalazine 500 mg tablet 0.5 g PO .COMPLEX 12/09/21 12/09/21 Allergies Allergy/AdvReac Type Severity Reaction Status Date / Time Sulfa (Sulfonamide Allergy Unknown Skin Verified 12/09/21 09:40 Antibiotics) Reaction/RASH Review of Systems Review of Systems: All systems reviewed & are unremarkable except as noted in HPI and below PMFSH Past Medical History Medical History Cataract (~2015) Chronic midline low back pain without sciatica Hepatitis C antibody test negative (09/16/19) Major depressive disorder, recurrent, moderate Migraine Mixed hyperlipidemia Obesity Pulmonary hypertension Surgical History Surgical History H/O adenoidectomy (~1978) H/O breast augmentation (~1989) H/O colonoscopy H/O hemorrhoidectomy H/O hernia repair (~1986) History of appendectomy (~1978) History of bilateral tubal ligation History of left knee replacement April 18, 2021 History of tonsillectomy (~1973) History of uterine suspension procedure (~1985) Family History Family History Father Diabetes mellitus Cerebrovascular accident Grandparent Family history of glaucoma Mother Family history of elevated blood lipids Family history of malignant neoplasm Family history of pancreatic cancer Sibling Family history of elevated blood lipids Social History Social History Social History: The patient lives with her . The is a durable power erisa attorney for healthcare. The patient is a full code. The patient has 3 children. Patient is retired from [employer]. The patient is a former smoker. She quit in 2016. She does not use any marijuana alcohol or illicit drugs. 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 Substance use: never Substance use type: does not use Additional living arrangements comments: [place] Gender identity (if verbalized by the patient): Female Sexual Orientation (if Verbalized by the Patient): Straight or Heterosexual Spiritual care concerns: No Exam Narrative: General appearance: Well-developed, well-nourished Skin: Normal color Head: Normocephalic, nontraumatic Eyes: Clear conjunctiva ENT: Oropharynx normal, ears normal, nose normal Neck: Supple, nontender Chest and respiratory: Airway patent, no respiratory distress, no accessory muscle use Heart: Regular rate/rhythm Abdomen: Soft, nontender, no organomegaly, quiet bowel sounds Vascular: Normal peripheral pulses, normal capillary refill. 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
[2022-02-14] MEDS: SODIUM CHLORIDE 0.9% IV 1,000 ML 999 ML IV CONT ×2 (13:40→15:16)
== END 2022-02-14 16:16 | disposition home or self-care (01) ==
PROVIDERS: Emergency Medicine; Emergency Provider Emergency Medicine; PCP Family Medicine
DX: K52.9 Noninfective gastroenteritis and colitis, unspecified (principal); E78.2 Mixed hyperlipidemia; Z87.891 Personal history of nicotine dependence
CPT/HCPCS: 36415; 80053; 81001; 83690; 85025; 96360; 96361; 99283; J7030

== ENCOUNTER → 2022-03-22 16:47 | Outpatient (CLI) | payer MEDICARE, SELFPAY ==
--- NOTE | ~2022-03-22 | MR_ITS ---
EXAMINATION: MR lumbar spine wo con DATE: 03/22/2022 17:25 INDICATION: Lumbar radicular pain with pain at the small the back post lifting heavy objects 2 years prior. TECHNIQUE: Magnetic resonance imaging (MRI) of the lumbar spine was performed without intravenous con trast. Sequences included sagittal T2-weighted FSE, sagittal T2-weighted FS FSE, sagittal T1-weighted FSE, and axial T2-weighted FSE. COMPARISON: None FINDINGS: Alignment is normal. Vertebral body heights are normal. Moderate disc height loss with fibrofatty and fibrovascular degenerative endplate changes at L5-S1. Marrow signal is otherwise normal. Additional moderate disc height loss at T10-T11, T11-T12 and L3-L4. Mild disc height loss at T12-L1 and L1-L2. M ild disc desiccation without disc height loss at L2-L3 and L4-L5. There are annular fissures at T12-L 1, L1-L2, L4-L5 and L5-S1. The conus medullaris terminates at L1. There is normal signal in the cauda l spinal cord. Paravertebral soft tissues are unremarkable. The following disc levels are specificall y discussed: T12-L1: Annular fissure with negligible central disc protrusion. There is moderate bilateral facet shaq int osteoarthritis. There is no neural foraminal stenosis. There is no central canal stenosis. L1-L2: Disc is mildly bulging with annular fissure. There is mild bilateral facet joint osteoarthriti s. There is mild left and minimal right neural foraminal stenosis. There is mild central canal stenos is. L2-L3: Disc is mildly bulging. There is mild bilateral facet joint osteoarthritis. There is mild left and minimal right neural foraminal stenosis. There is minimal central canal stenosis. L3-L4: Disc is mildly bulging. There is mild left and moderate right facet joint osteoarthritis. Ther e is mild to moderate bilateral neural foraminal stenosis. There is normal central canal stenosis. L4-L5: Disc is mildly bulging with superimposed annular fissure and left foraminal zone disc protrusi on. There is hypertrophy of the ligamentum flavum. There is severe bilateral facet joint osteoarthrit is. There is mild to moderate bilateral neural foraminal stenosis. There is mild central canal stenos is. L5-S1: Disc is bulging. There is moderate bilateral facet joint osteoarthritis. There is mild right a nd mild to moderate left neural foraminal stenosis. There is no central canal stenosis. IMPRESSION: 1. Moderate lumbar spondylosis. Reviewed, dictated and finalized at location A.
== END ==
PROVIDERS: PCP Family Medicine; Visit Provider Nurse Practitioner Family
DX: M47.25 Other spondylosis with radiculopathy, thoracolumbar region (principal); M48.05 Spinal stenosis, thoracolumbar region; M47.27 Other spondylosis with radiculopathy, lumbosacral region; M48.07 Spinal stenosis, lumbosacral region
CPT/HCPCS: 72148

== ENCOUNTER 2022-04-19 10:20 | Outpatient (CLI) | payer MEDICARE, SELFPAY ==
--- NOTE | ~2022-04-19 | US_ITS ---
EXAMINATION: US venous doppler [facility] DATE: 04/19/2022 10:51 INDICATION: Left lower limb swelling TECHNIQUE: Grayscale ultrasound images without and with compression and Doppler ultrasound images of the left lower extremity veins were obtained. COMPARISON: None. FINDINGS: The visualized portions of left common femoral vein, profunda (deep) femoral vein, femoral vein, popl iteal vein, peroneal veins, posterior tibial veins, gastrocnemius vein and greater saphenous vein out flow are patent. IMPRESSION: 1. No deep venous thrombosis in the left lower limb. Reviewed, dictated and finalized at location A.
== END 2022-04-19 10:21 | disposition home or self-care (01) ==
LOC: ANHIMG 10:21
PROVIDERS: PCP Family Medicine; Visit Provider Orthopaedic Surgery
DX: M79.89 Other specified soft tissue disorders (principal)
CPT/HCPCS: 93971

== ENCOUNTER 2022-06-16 13:56 | Outpatient (CLI) | payer MEDICARE, SELFPAY ==
--- NOTE | ~2022-06-16 | CT_ITS ---
EXAMINATION: CT chest abdomen pelvis wo con DATE: 06/16/2022 14:13 INDICATION: Soft tissue disorder. TECHNIQUE: Computed tomography (CT) of the chest, abdomen, and pelvis was performed without intraveno us contrast. Automated exposure control and iterative reconstruction technique were employed. The dos e-length product was 1377.67 mGy-cm. COMPARISON: CT abdomen and pelvis 05/06/2021 FINDINGS: CHEST CT: There is mild emphysema. A calcified left lung nodule is consistent with old granulomatous disease. T here is mild atelectasis bilaterally. No pleural effusion. The heart size is normal. No pericardial e ffusion. There are coronary artery calcifications. Breast implants are noted. There is moderate thora cic spondylosis. ABDOMEN/PELVIS CT: There are cysts in the liver measuring up to 11 mm. Calcifications in the spleen are consistent with old granulomatous disease. 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 There is a gallstone in the gallbladder, which is normal in size. The pancreas, adrenal glands, and kidneys are normal. There is no urolithiasis. There is diverticulosis of the colon without evidence of diverticu litis. There are no dilated loops of bowel. The appendix is not visualized. There is a small sliding hiatal hernia. There is no free intraperitoneal fluid. There are no pathologically enlarged lymph nod es. There is severe lower lumbar spondylosis. IMPRESSION: 1. Mild emphysema. 2. Small sliding hiatal hernia. Reviewed, dictated and finalized at location A.
== END 2022-06-16 13:57 | disposition home or self-care (01) ==
LOC: ANHIMG 13:59
PROVIDERS: PCP Family Medicine; Visit Provider Family Medicine
DX: M79.89 Other specified soft tissue disorders (principal); J43.9 Emphysema, unspecified; K44.9 Diaphragmatic hernia without obstruction or gangrene
CPT/HCPCS: 71250; 74176

== ENCOUNTER 2022-12-14 16:04 | Outpatient (CLI) | payer MEDICARE, SELFPAY ==
--- NOTE | ~2022-12-14 | MM_ITS ---
EXAMINATION: MM scrn ravi implant BI w ralf HISTORY: Screening mammogram TECHNIQUE: Craniocaudal and mediolateral oblique 3-D tomosynthesis images with implant displacement a nd synthetic 2-D images were generated. Craniocaudal and mediolateral oblique views of the breasts wi thout implant displacement were obtained using full field digital mammography. CAD analysis was submi tted and interpreted. COMPARISON: Comparison to multiple prior studies sequentially, with oldest reviewed study dated 12/11. BREAST PARENCHYMAL COMPOSITION: There are scattered areas of fibroglandular density. FINDINGS: There are bilateral subglandular silicone implants. There are new nodular asymmetries in th e lateral aspect of the right breast on CC implant displaced view. The left breast is stable without evidence for malignancy. IMPRESSION: 1. New right breast asymmetries laterally on CC view. 2. Additional mammographic views and possible breast ultrasound are recommended. BI-RADS Category 0: Incomplete: Needs additional imaging evaluation. Reviewed, dictated and finalized at location A. IMPRESSION: 1. New right breast asymmetries laterally on CC view. 2. Additional mammographic views and possible breast ultrasound are recommended . BI-RADS Category 0: Incomplete: Needs additional imaging evaluation.
== END 2022-12-14 16:05 | disposition home or self-care (01) ==
LOC: ANHIMG 16:05
PROVIDERS: PCP Family Medicine; Visit Provider Family Medicine
DX: Z12.31 Encounter for screening mammogram for malignant neoplasm of breast (principal); R92.8 Other abnormal and inconclusive findings on diagnostic imaging of breast
CPT/HCPCS: 77063; 77067

== ENCOUNTER 2023-01-25 11:02 | Outpatient (CLI) | payer MEDICARE, SELFPAY ==
--- NOTE | ~2023-01-25 | MM_ITS ---
EXAMINATION: MM diag ravi implant RT w ralf HISTORY: Right breast asymmetries on screening mammogram TECHNIQUE: Additional 3-D tomosynthesis images of the right breast were performed and synthetic 2-D i mages were generated. CAD analysis was submitted and interpreted. COMPARISON: 12/14/2022, 10/18/2021,02/21/2017 FINDINGS: There is a return to baseline fibroglandular appearance with spot compression of the right breast in the area questioned on screening mammogram. IMPRESSION: 1. No mammographic evidence of malignancy. 2. Recommend routine screening mammography in one year. BI-RADS Category 1: Negative Reviewed, dictated and finalized at location A.
== END 2023-01-25 11:03 | disposition home or self-care (01) ==
LOC: ANHIMG 11:03
PROVIDERS: PCP Family Medicine; Visit Provider Family Medicine
DX: R92.8 Other abnormal and inconclusive findings on diagnostic imaging of breast (principal)
CPT/HCPCS: 77061; 77065; G0279

== ENCOUNTER 2023-02-27 15:48 | Inpatient (IN) | payer MEDICARE, SELFPAY ==
[2023-02-19 14:14] VITALS: BMI 33.7
--- NOTE | 2023-02-19 14:20 | PC.NURSE ---
PRE-OP INSTRUCTIONS, PLEASE READ CAREFULLY Report to the Outpatient Waiting Room, entrance under the green pavilion located off [facility], at time _1000_ on date _02/27/23_. Planned Procedure Time: _1200_. PACK A SMALL OVERNIGHT BAG AND LEAVE IN THE CAR Time changes happen often and if your time is changed the preop area will call you the afternoon before. - You and your visitor will be asked to self-screen and do not enter if you have any COVID symptoms. - A mask is optional within the hospital at this time. -VISITING HOURS 8AM-8PM Patients may have clear liquids (water, carbonated beverages, clear teas, apple juice) until 3 hours prior to surgery (0900 AM) with a maximum of 20 ounces. - No food from midnight until time of surgery Take the following medications with a SIP of water the morning of surgery: _ALPRAZOLAM, CYCLOBENZAPRINE IF NEEDED_ DO NOT STOP ANY OF YOUR OTHER PRESCRIPTION MEDICATIONS PRIOR TO SURGERY ?EXCEPT THE FOLLOWING Medications to discontinue per physician __N/A___, Date to take last dose Please no make-up, nail bhutanese, hairspray, perfume, deodorant, or body powder the day of surgery. No jewelry (including any body piercings) or valuables the day of surgery, leave them at home. Please take a shower or bath the night before, or the morning of, surgery with an antibacterial soap. Wear comfortable, loose fitting clothing. - Jewelry must be removed prior to entering the operating room. Rings and piercings that are not removed may be cut off. - The hospital will not accept responsibility for valuables. - Please leave all valuables, including medications, at home the day of surgery. If you are going home after surgery, a licensed ambulance driver paramedic must drive you home. - NO public transportation without another adult if you receive anesthesia. - We recommend that an adult stay with you for 24 hours following discharge. - We also recommend that you do not drive, make important decision, drink alcoholic beverages, or take any drugs that were not prescribed by your health care provider for at least 24 hours after your discharge time. Follow any additional instructions given to you from your surgeon. If you or anyone in your household have experienced Covid symptoms in the past week, please notify your surgeon or the nurse liaison at the phone number below for possible testing. Telephone instructions given to _PATIENT_and asked if any additional questions and then verbalized understanding. Patient advised to call surgeon office or pre surgery nurse liaison [phone] if any additional questions.
[2023-02-27] VITALS (13 sets, daily range): BP systolic 103–131; BP diastolic 62–86; PULSE 63–85; RESP 12–18; TEMP 35.9–36.4; O2SAT 92–100; BMI 34.0
--- NOTE | ~2023-02-27 | XR_ITS ---
EXAMINATION: XR fluoroscopy no charge DATE: 02/27/2023 12:00 CDT INDICATION: LUMBAR FUSION . TECHNIQUE: 2 fluoroscopic images of the lateral lumbar spine were obtained during lumbar fusion perfo rmed by the surgeon. I was not present in the operating room. Fluoroscopy exposure time was 6.9 secon ds. Air Kerma 5.3823 mGy. DAP 0.1067 mGym2. COMPARISON: None FINDINGS: Skin retractors overlie the posterior soft tissues. A probe identifies the tip of the L3 spinous proc ess, at the level of the superior aspect of L4. Bilateral pedicle screws with fusion rods placed at L 4-5. Interbody device in the L4-5 disc space. IMPRESSION: Fluoroscopic documentation of lumbar fusion. Please refer to the operative note for complete procedur al details . Reviewed, dictated and finalized at location K. IMPRESSION: Fluoroscopic documentation of lumbar fusion. Please refer to the operative note for complete procedural details .
--- NOTE | 2023-02-27 08:32 | WPDANESEPPF ---
Anes - Initial Pre Proc Eval Procedure: Operation Date: 02/27/23 11:30 Proposed Procedures p L 4,5 Posterior Lumbar Interbody Fusion - Navdeep Bui MD Date/Time: 02/27/23 08:32 Surgeon: Navdeep Bui MD Pre Op Diagnosis: l4,5 spondylosis Patient Data Age: 68 Gender: F Height: 1.63 m Weight: 89.09 kg Allergies Allergy/AdvReac Type Severity Reaction Status Date / Time Sulfa (Sulfonamide Allergy Unknown Skin Verified 02/27/23 09:46 Antibiotics) Reaction/RASH Home Medications Medication Instructions Recorded Confirmed Type alprazolam 0.25 mg tablet 0.25 mg PO BID-TID PRN anxiety #60 09/21/22 02/19/23 Rx tabs atorvastatin 80 mg tablet 80 mg PO QHS #90 tabs 10/19/22 02/19/23 Rx cyclobenzaprine 10 mg tablet 10 mg PO TID PRN muscle spasm #90 10/31/22 02/19/23 Rx tabs potassium chloride 20 mEq 20 meq PO DAILY #90 tabs 12/18/22 02/19/23 Rx tablet,extended release sertraline 100 mg tablet 100 mg PO DAILY #90 tabs 01/10/23 02/19/23 Rx zolpidem 10 mg tablet 10 mg PO QHS #30 tabs 01/23/23 02/19/23 Rx Patient hx anesthesia problems: post op nausea/vomiting Family hx anesthesia problems: none Results Review: All pre-operative results and documents have been reviewed as part of the pre-operative evaluation. [facility] Past Medical History Medical History (Updated 02/27/23 @ 08:33 by Joshua Cooney DO) Cataract (~2015) Chronic midline low back pain without sciatica Hepatitis C antibody test negative (09/16/19) Major depressive disorder, recurrent, moderate Migraine Mixed hyperlipidemia Obesity PONV (postoperative nausea and vomiting) Pulmonary hypertension Surgical History Surgical History H/O adenoidectomy (~1978) H/O breast augmentation (~1989) H/O colonoscopy H/O hemorrhoidectomy H/O hernia repair (~1986) History of appendectomy (~1978) History of bilateral tubal ligation History of left knee replacement April 18, 2021 History of tonsillectomy (~1973) History of uterine suspension procedure (~1985) Family History Family History (Updated 01/29/23 @ 11:57 by Destinee Barboza MA) Father Diabetes mellitus Cerebrovascular accident Family history of stroke Grandparent Family history of glaucoma Mother Family history of elevated blood lipids Family history of malignant neoplasm Family history of pancreatic cancer Sibling Family history of elevated blood lipids Heart disease Social History Social History (Updated 10/19/22 @ 09:52 by Maria Isabel Ty [facility]) Social History: The patient lives with her . The is a durable power contracts attorney for healthcare. The patient is a full code. The patient has 3 children. Patient is retired from [employer]. The patient is a former smoker. She quit in 2015. She does not use any marijuana alcohol or illicit drugs. Smoking packs per day: 1 Smoking cigarettes per day: 20.0 Years smoked: 30 Smoking pack-years: 30.00 Smoking status: Former smoker Tobacco type: cigarettes Second hand tobacco smoke exposure: No Smoking end date: 07/18/16 Alcohol intake: former Alcohol use details: STATES DRANK SOCIALLY IN THE PAST Substance use: never Substance use type: does not use Lack of Transportation: No Lack of Food: Never True Current Housing: I Have Housing Concerned About Future Housing: No Difficulty Paying Gas/Electric Bills: No Difficulty Paying for Meds: No Currently Unemployed: No Education: High School Diploma/GED Difficulty w/ Childcare or Family Care: No Living arrangements: with family Additional living arrangements comments: [employer] Occupation/Education: retired Gender identity (if verbalized by the patient): Female Sexual Orientation (if Verbalized by the Patient): Straight or Heterosexual Spiritual care concerns: No Anes - Eval Final PreProcedure Day of Procedure 02/27/23 08:
[2023-02-27] MEDS: LACTATED RINGERS 1,000 ML 30 ML IV CONT ×2 (09:55→14:29)
--- NOTE | 2023-02-27 11:37 | PM.IMHP ---
H&P: HPI History of Present Illness Date/Time: 02/27/23 11:37 Chief Complaint: Back and leg pain Narrative: Chantal is a 60-year-old female with back and leg pain related to spondylosis and spondylolisthesis at L4-5 who presents for posterior lumbar interbody fusion at that level. She has not changed appreciably since we last saw her. She is not having any bowel or bladder difficulty or other constitutional problems. She does not have any specific muscle group weakness or dermatomal numbness. Review of Systems Review of Systems: Patient denies shortness of breath, cough, fever, chills, nausea, vomiting, weight loss, weight gain, chest pain, dysuria. She has back and leg pain as above. Review of systems is otherwise negative on 12 systems except as noted elsewhere. [facility] Past Medical History Medical History (Updated 02/27/23 @ 08:33 by Joshua Cooney DO) Cataract (~2015) Chronic midline low back pain without sciatica Hepatitis C antibody test negative (09/16/19) Major depressive disorder, recurrent, moderate Migraine Mixed hyperlipidemia Obesity PONV (postoperative nausea and vomiting) Pulmonary hypertension Surgical History Surgical History H/O adenoidectomy (~1978) H/O breast augmentation (~1989) H/O colonoscopy H/O hemorrhoidectomy H/O hernia repair (~1986) History of appendectomy (~1978) History of bilateral tubal ligation History of left knee replacement April 18, 2021 History of tonsillectomy (~1973) History of uterine suspension procedure (~1985) Family History Family History (Updated 01/29/23 @ 11:57 by Destinee Barboza MA) Father Diabetes mellitus Cerebrovascular accident Family history of stroke Grandparent Family history of glaucoma Mother Family history of elevated blood lipids Family history of malignant neoplasm Family history of pancreatic cancer Sibling Family history of elevated blood lipids Heart disease Social History Social History (Updated 10/19/22 @ 09:52 by Maria Isabel Ty [facility]) Social History: The patient lives with her . The is a durable power energy attorney for healthcare. The patient is a full code. The patient has 3 children. Patient is retired from [employer]. The patient is a former smoker. She quit in 2015. She does not use any marijuana alcohol or illicit drugs. Smoking packs per day: 1 Smoking cigarettes per day: 20.0 Years smoked: 30 Smoking pack-years: 30.00 Smoking status: Former smoker Tobacco type: cigarettes Second hand tobacco smoke exposure: No Smoking end date: 07/18/16 Alcohol intake: former Alcohol use details: STATES DRANK SOCIALLY IN THE PAST Substance use: never Substance use type: does not use Lack of Transportation: No Lack of Food: Never True Current Housing: I Have Housing Concerned About Future Housing: No Difficulty Paying Gas/Electric Bills: No Difficulty Paying for Meds: No Currently Unemployed: No Education: High School Diploma/GED Difficulty w/ Childcare or Family Care: No Living arrangements: with family Additional living arrangements comments: [employer] Occupation/Education: retired Gender identity (if verbalized by the patient): Female Sexual Orientation (if Verbalized by the Patient): Straight or Heterosexual Spiritual care concerns: No Meds Home Medications and Allergies Home Medications Medication Instructions Recorded Confirmed Type alprazolam 0.25 mg tablet 0.25 mg PO BID-TID PRN anxiety #60 09/21/22 02/19/23 Rx tabs atorvastatin 80 mg tablet 80 mg PO QHS #90 tabs 10/19/22 02/19/23 Rx cyclobenzaprine 10 mg tablet 10 mg PO TID PRN muscle spasm #90 10/31/22 02/19/23 Rx tabs potassium chloride 20 mEq 20 meq PO DAILY #90 tabs 12/18/22 02/19/23 Rx tablet,extended release sertraline 100 mg tablet 100 mg PO DAILY #90 tabs 01/10/23 02/19/23 Rx zolpidem 10 mg tablet 10
--- NOTE | 2023-02-27 11:38 | WPDHPUPDATE1 ---
History and Physical Update Update Date/Time: 02/27/23 11:38 History and Physical has been reviewed, including an updated exam of the patient. There are NO changes in the patient's condition. Risks, benefits, and alternatives have been discussed and questions answered. Patient agrees to proceed with procedure.
[2023-02-27] MEDS: ceFAZolin 2 GM/D5W 50 ML 2 GM/50 ML BAG IVPB (11:57)
[2023-02-27] MEDS: LIDO 1%/EPINEPHRINE 1:100,000 50 ML VIAL INFILTRATE (12:43)
--- NOTE | 2023-02-27 14:26 | W.PM.PROC2 ---
Procedure Note - Detailed Date of Procedure 02/27/23 Pre-op Diagnosis l4,5 spondylosis Post-op Diagnosis Same Procedure Performed L4-5 complete laminectomy and bilateral facetectomy, L4-5 complete diskectomy and interbody arthrodesis utilizing titanium interbody device and local autograft, L4-5 pedicle screw instrumentation Surgeon Navdeep Bui MD [employer] [facility] Anesthesia General Description of Procedure The patient was brought to the operating room in the supine position, was sedated, intubated and placed under general anesthesia in routine fashion. She was then turned into the prone position on Nikita frame. The of operation her back was examined, marked for incision, prepped and draped in routine sterile fashion. Incision was marked over the L4-L5 spinous processes in the midline. This area was injected with 0.5% lidocaine with [id number] epinephrine. Intravenous antibiotics given prior to incision. Incision was made with a 10 blade scalpel down to the lumbodorsal fascia. A subperiosteal dissection of the muscle soft tissue away from spinous process lamina at L4-L5 was performed with a subperiosteal elevator and Bovie cautery. A verifying x-rays obtained to verify the level of operation. The L4 spinous process was removed with a Austyn rongeur. Kerrison punches, curved curette and a Leksell rongeur were used to remove lamina in the midline and to the soft contents of the canal were encountered. A Midas Martin drill was used to resect the pars bilaterally at L4. The inferior articular process and facet of L4 could then be removed bilaterally. These +spinous process were stripped free of soft tissue and morselized for later use as interbody autograft. Kerrison punches curved curettes were used to define a plane with her and removed bone and ligament flush pedicle and through the foramina widely decompressing the exiting nerve roots. With the thecal sac retracted and protected the disc space was entered bilaterally using an 11 blade scalpel. Scrapers a very sizes, curettes of various configurations, pituitary rongeur and a rasp were used to remove as much cartilaginous endplate and disc material as possible down to bleeding cortical flat surfaces on the opposing bones. The disc spaces and sized and a 12 mm titanium interbody device was chosen and filled with local autograft bone. This was a T lift cage. The disc space was likewise filled with local autograft bone medially and anteriorly. The interbody device was then placed with 2-3 mm countersink within the disc space from the left side diagonally. Pedicle screw instrumentation was performed at L4-L5 by observing and palpating the pedicles well a hole was made in the superior articular process of the pedicle using a Midas Martin drill with an a.m. 8 bit. Pedicle was then cannulated with a pedicle probe, checked for continuity ball probe, tapped with a 5.5 mm tap and a 6.5 x 50 mm screw was placed into each pedicle on each side. Rods were placed in screw heads on either side and secured position using the caps for that purpose. These were definitively tightened with a torque and anti torque device. The wound was copiously irrigated with bacitracin irrigation all bleeding stopped with bipolar Bovie cautery and Gelfoam thrombin powder. A verifying x-rays obtained to verify good position of the instrumentation was was confirmed. A medium Hemovac drain was left in the subfascial position. After the inferior right of the incision. The wound was then closed in layered fashion with 2-0 Vicryl interrupted sutures in the lumbodorsal fascia and Allison's layer. 3-0 Vicryl buried interrupted sutures were placed in the dermis and the skin was closed with a running 4-0 Monocryl subcuticular stitch and dressed with Dermabond. The patient was allowed to wake up in the operating room was taken to the recovery room in stable condition. Complications of this operation all counts reported correct case
[2023-02-27] MEDS: fentaNYL CITRATE INJ (*CRX) 100 MCG/2 ML VIAL 25 MCG IV PUSH ×8 (14:49→15:32)
--- NOTE | 2023-02-27 16:08 | ADMGEN ---
This patient, Chantal Darnell, was admitted to Medical Room 245-. Patient/family oriented to hospital policies and general routines including ID bracelet, bed and alarms, visiting hours, pain management, procedures, bathroom and other care routines, personal items, smoking policy, room service/diet, and visiting hours. Information on how to activate the Rapid Response Team has been discussed. Patient/Family are encouraged to report perceived risks to care and to ask questions if they do not understand what they are told or what they should do.
[2023-02-27] MEDS: HYDROcodone/acetaminophen (*CRX) 10-325 MG TABLET 1 TAB PO ×2 (16:17→22:26)
[2023-02-27] MEDS: KCL 20 MEQ/D5/0.45% SOD CHL 1,000 ML 100 ML IV CONT (16:18)
[2023-02-27] MEDS: HYDROmorphone HCL INJ (*CRX) 1 MG/ML SYR 0.5 MG IV PUSH (18:31)
[2023-02-27] MEDS: ATORVASTATIN 40 MG TABLET 80 MG PO (20:25)
[2023-02-27] MEDS: DOCUSATE SODIUM 100 MG CAPSULE PO (20:26)
[2023-02-27] MEDS: ZOLPIDEM TARTRATE (*CRX) 5 MG TABLET 10 MG PO (20:31)
--- NOTE | 2023-02-28 19:32 | WPDNEUROSGPN ---
Progress Note: A&P Assessment and Plan (1) Status post lumbar spinal fusion: Code(s): Z98.1 - Arthrodesis status Status: Acute Assessment and Plan: s/p L4-5 PLIF on 02/27 Plan Plan: -Ambulate with therapy -DC fuentes catheter -Continue hemovac drain for now -Pain control Subjective Date/time seen: 02/28/23 19:32 Interval history: Complaining of back pain and nausea, particularly with getting up to chair. Pain adequately controlled with medications. Urinary catheter still in place Review of Systems Review of Systems: All systems reviewed & are unremarkable except as noted in HPI and below Exam Narrative: AOx4 Sitting up in chair Full strength in lower extremities sensation intact to light touch Dressing c/d/i Objective Data Vital Signs Vital Signs: Vital Signs - 24 hr 02/27/23 20:38 02/27/23 20:30 Temperature 97.4 F L Pulse Rate 80 80 Respiratory Rate 18 18 Blood Pressure 103/67 Pulse Oximetry 92 92 Oxygen Delivery Room Air Intake/Output Intake/Output: Intake & Output 02/25/23 02/26/23 02/27/23 02/28/23 23:59 23:59 23:59 23:59 Intake Total 2810 Output Total 260 Balance 2550 Meds/Results Medications: Active Medications Generic Name Dose Route Start Last Admin Trade Name Freq PRN Reason Stop Dose Admin Hydrocodone Bitart/Acetaminophen 1 tab 02/27/23 15:48 Hydrocodone/Acetaminophen (*Crx) 5-325 Mg Tablet PO Q4H PRN Mild Pain (1-3) Hydrocodone Bitart/Acetaminophen 1 tab 02/27/23 15:48 02/27/23 22:26 Hydrocodone/Acetaminophen (*Crx) 10-325 Mg Tablet PO 1 tab Q4H PRN Administration Moderate Pain (4-6) Al Hydrox/Mg Hydrox/Simethicone 20 ml 02/27/23 15:48 Mag Hydrox/Al Hydrox/Simeth 30 Ml Udc PO Q4H PRN Indigestion/Heartburn Alprazolam 0.25 mg 02/27/23 15:48 Alprazolam (*Crx) 0.25 Mg Tablet PO Q8-12H PRN anxiety Atorvastatin Calcium 80 mg 02/27/23 21:00 02/27/23 20:25 Atorvastatin 40 Mg Tablet PO 80 mg QHS LOLY Administration Bisacodyl 10 mg 02/27/23 15:48 Bisacodyl 10 Mg Suppository RECTAL DAILY PRN Constipation Cyclobenzaprine HCl 10 mg 02/27/23 15:48 Cyclobenzaprine Hcl 10 Mg Tablet PO TID PRN Muscle Spasms Docusate Sodium 100 mg 02/27/23 21:00 02/27/23 20:26 Docusate Sodium 100 Mg Capsule PO 100 mg Q12HR LOLY Administration Hydromorphone HCl 0.5 mg 02/27/23 15:48 02/27/23 18:31 Hydromorphone Hcl Inj (*Crx) 1 Mg/Ml Syr IV PUSH 0.5 mg Q2H PRN Administration Pain Rated 7-10 Potassium Chloride/Dextrose/Sod Cl 1,000 mls @ 100 mls/hr 02/27/23 15:48 02/27/23 16:18 Kcl 20 Meq/D5/0.45% Sod Chl IV CONT 100 mls/hr .Q10H LOLY Administration Ondansetron HCl 4 mg 02/27/23 15:48 Ondansetron Inj 4 Mg/2 Ml Vial IV PUSH Q8H PRN Nausea And Vomiting Potassium Chloride 20 meq 02/28/23 09:00 Potassium Chloride 20 Meq Er Tablet PO DAILY LOLY Senna/Docusate Sodium 1 tab 02/27/23 15:48 Senna/Docusate Sodium Tablet PO HS PRN Constipation Sertraline HCl 100 mg 02/28/23 09:00 Sertraline Hcl 50 Mg Tablet PO DAILY LOLY Zolpidem Tartrate 10 mg 02/27/23 21:00 02/27/23 20:31 Zolpidem Tartrate (*Crx) 5 Mg Tablet PO 10 mg QHS LOLY Administration Radiology Results: ITS Impressions Fluoroscopy 02/27/23 16:31 IMPRESSION: Fluoroscopic documentation of lumbar fusion. Please refer to the operative note for complete procedural details .
[2023-02-28] MEDS: ZOLPIDEM TARTRATE (*CRX) 5 MG TABLET 10 MG PO (20:11)
[2023-02-28] MEDS: ATORVASTATIN 40 MG TABLET 80 MG PO (20:11)
[2023-02-28] MEDS: DOCUSATE SODIUM 100 MG CAPSULE PO (20:11)
[2023-02-28] MEDS: KCL 20 MEQ/D5/0.45% SOD CHL 1,000 ML 100 ML IV CONT (20:18)
[2023-02-28 20:23] VITALS: BP 91/60; PULSE 83; RESP 18; TEMP 36.7; O2SAT 93
--- NOTE | 2023-02-28 21:33 | PC.NURSE ---
Paper documentation exists on this patient due to [employer] [facility] downtime on 02/28/23 from 0030 to [1930] .
[2023-03-01 05:59] VITALS: BP 101/59; PULSE 109; RESP 18; TEMP 36.7; O2SAT 90
[2023-03-01] MEDS: KCL 20 MEQ/D5/0.45% SOD CHL 1,000 ML 100 ML IV CONT ×2 (06:32→16:43)
[2023-03-01] MEDS: SERTRALINE HCL 50 MG TABLET 100 MG PO (08:08)
[2023-03-01] MEDS: DOCUSATE SODIUM 100 MG CAPSULE PO ×2 (08:08→19:43)
[2023-03-01] MEDS: POTASSIUM CHLORIDE 20 MEQ ER TABLET PO (08:09)
[2023-03-01 10:32] VITALS: BP 115/65; PULSE 93
[2023-03-01 10:38] VITALS: O2SAT 95
[2023-03-01] MEDS: HYDROcodone/acetaminophen (*CRX) 10-325 MG TABLET 1 TAB PO ×3 (10:40→22:35)
--- NOTE | 2023-03-01 12:44 | WPDNEUROSGPN ---
Progress Note: A&P Assessment and Plan (1) Status post lumbar spinal fusion: Code(s): Z98.1 - Arthrodesis status Status: Acute Plan s/p L4-5 PLIF on 02/27 Plan: -Dressing and hemovac removed at bedside -Encouraged IS to help wean oxygen -Start DVT ppx -Encourage ambulation in halls -Anticipate discharge home tomorrow Subjective Date/time seen: 03/01/23 12:44 Interval history: Overall feeling better today in terms of back pain. Ambulated a short distance in the [place] with PT this morning. Required placement of nasal cannula for oxygen this morning for O2 of 88%. Also given incentive spirometer. Denies any leg pain, has voided independently since catheter was removed yesterday. Review of Systems Review of Systems: All systems reviewed & are unremarkable except as noted in HPI and below Exam Narrative: AOx4 Full strength in lower extremities Sensation intact Incision c/d/i Objective Data Vital Signs Vital Signs: Vital Signs - 24 hr 02/28/23 20:23 02/28/23 20:00 03/01/23 05:59 Temperature 98.1 F 98.0 F Pulse Rate 83 109 H Respiratory Rate 18 18 Blood Pressure 91/60 L 101/59 L Pulse Oximetry 93 90 Oxygen Delivery Room Air 03/01/23 08:00 03/01/23 10:32 03/01/23 10:38 Temperature Pulse Rate 93 Respiratory Rate Blood Pressure 115/65 Pulse Oximetry 95 Oxygen Delivery Room Air Intake/Output Intake/Output: Intake & Output 02/26/23 02/27/23 02/28/23 03/01/23 23:59 23:59 23:59 23:59 Intake Total 2810 1000 1220 Output Total 260 90 Balance 2550 1000 1130 Meds/Results Medications: Active Medications Generic Name Dose Route Start Last Admin Trade Name Freq PRN Reason Stop Dose Admin Hydrocodone Bitart/Acetaminophen 1 tab 02/27/23 15:48 Hydrocodone/Acetaminophen (*Crx) 5-325 Mg Tablet PO Q4H PRN Mild Pain (1-3) Hydrocodone Bitart/Acetaminophen 1 tab 02/27/23 15:48 03/01/23 10:40 Hydrocodone/Acetaminophen (*Crx) 10-325 Mg Tablet PO 1 tab Q4H PRN Administration Moderate Pain (4-6) Al Hydrox/Mg Hydrox/Simethicone 20 ml 02/27/23 15:48 Mag Hydrox/Al Hydrox/Simeth 30 Ml Udc PO Q4H PRN Indigestion/Heartburn Alprazolam 0.25 mg 02/27/23 15:48 Alprazolam (*Crx) 0.25 Mg Tablet PO Q8-12H PRN anxiety Atorvastatin Calcium 80 mg 02/27/23 21:00 02/28/23 20:11 Atorvastatin 40 Mg Tablet PO 80 mg QHS LOLY Administration Bisacodyl 10 mg 02/27/23 15:48 Bisacodyl 10 Mg Suppository RECTAL DAILY PRN Constipation Cyclobenzaprine HCl 10 mg 02/27/23 15:48 Cyclobenzaprine Hcl 10 Mg Tablet PO TID PRN Muscle Spasms Docusate Sodium 100 mg 02/27/23 21:00 03/01/23 08:08 Docusate Sodium 100 Mg Capsule PO 100 mg Q12HR LOLY Administration Hydromorphone HCl 0.5 mg 02/27/23 15:48 02/27/23 18:31 Hydromorphone Hcl Inj (*Crx) 1 Mg/Ml Syr IV PUSH 0.5 mg Q2H PRN Administration Pain Rated 7-10 Potassium Chloride/Dextrose/Sod Cl 1,000 mls @ 100 mls/hr 02/27/23 15:48 03/01/23 06:32 Kcl 20 Meq/D5/0.45% Sod Chl IV CONT 100 mls/hr .Q10H LOLY Administration Ondansetron HCl 4 mg 02/27/23 15:48 Ondansetron Inj 4 Mg/2 Ml Vial IV PUSH Q8H PRN Nausea And Vomiting Potassium Chloride 20 meq 02/28/23 09:00 03/01/23 11:29 Potassium Chloride 20 Meq Er Tablet PO Not Given DAILY LOLY Senna/Docusate Sodium 1 tab 02/27/23 15:48 Senna/Docusate Sodium Tablet PO HS PRN Constipation Sertraline HCl 100 mg 02/28/23 09:00 03/01/23 11:29 Sertraline Hcl 50 Mg Tablet PO Not Given DAILY LOLY Zolpidem Tartrate 10 mg 02/27/23 21:00 02/28/23 20:11 Zolpidem Tartrate (*Crx) 5 Mg Tablet PO 10 mg QHS LOLY Administration Radiology Results: ITS Impressions Fluoroscopy 02/27/23 16:31 IMPRESSION: Fluoroscopic documentation of lumbar fusion. Please refer to the operative note for complete procedural details
[2023-03-01 13:23] LABS: Mean Platelet Volume 10.1 fl (7.4-10.4); Platelet Count Result 209 k/mm3 (150-375)
[2023-03-01 13:36] LABS: Alanine Aminotransferase 24 U/L (6-35); Estimated CRCL calculation 83 ml/min; Estimated Glomerular Filt Rate > 60
[2023-03-01 14:00] VITALS: BP 108/66; PULSE 89; RESP 18; TEMP 36.8; O2SAT 92
[2023-03-01 19:36] VITALS: BP 110/66; PULSE 91; RESP 19; TEMP 37.4; O2SAT 94
[2023-03-01] MEDS: CYCLOBENZAPRINE HCL 10 MG TABLET PO (19:42)
[2023-03-01] MEDS: ZOLPIDEM TARTRATE (*CRX) 5 MG TABLET 10 MG PO (19:43)
[2023-03-01] MEDS: ATORVASTATIN 40 MG TABLET 80 MG PO (19:43)
[2023-03-01] MEDS: ENOXAPARIN 40 MG/0.4 ML SYRINGE SUB-Q (19:44)
[2023-03-02] MEDS: ALPRAZolam (*CRX) 0.25 MG TABLET PO (00:30)
[2023-03-02 05:05] VITALS: BP 112/64; PULSE 93; RESP 19; TEMP 37.2; O2SAT 96
[2023-03-02] MEDS: HYDROcodone/acetaminophen (*CRX) 10-325 MG TABLET 1 TAB PO ×3 (05:22→13:56)
[2023-03-02] MEDS: ONDANSETRON INJ 4 MG/2 ML VIAL IV PUSH (05:22)
[2023-03-02] MEDS: CYCLOBENZAPRINE HCL 10 MG TABLET PO (05:22)
[2023-03-02 08:00] VITALS: PULSE 93; RESP 19; O2SAT 96
[2023-03-02] MEDS: SERTRALINE HCL 50 MG TABLET 100 MG PO (08:46)
[2023-03-02] MEDS: DOCUSATE SODIUM 100 MG CAPSULE PO (08:46)
[2023-03-02] MEDS: POTASSIUM CHLORIDE 20 MEQ ER TABLET PO (08:46)
--- NOTE | 2023-03-02 13:45 | PCCCNOTE ---
On 03/02/23, the student, [Dulce Maria Curran ], provided care and completed [facility] documentation on this patient. I have reviewed the student's documentation and agree with the findings.
[2023-03-02 14:00] VITALS: BP 112/60; PULSE 94; RESP 18; TEMP 37.2; O2SAT 97
--- NOTE | 2023-03-02 15:54 | PCPTNOTE ---
On 03/02/23, the student, LEONILA Arellano, provided care and completed [facility] documentation on this patient. I have reviewed the student's documentation and agree with the findings.
--- NOTE | 2023-04-16 12:47 | PM.DS ---
DS: Admitting Diagnosis Discharge Date 03/02/23 Admitting Diagnosis Lumbar spondylolisthesis and stenosis DS: Discharge Diagnosis Discharge Diagnosis Plan lumbar spondylolisthesis and stenosis DS: Summary Hospital Course Hospital Course: Chantal was taken to the operating room on 02/27/2021 where an L4-5 posterior lumbar interbody fusion was performed at Dr. rosa. She went to the 4 postoperatively. Physical and occupational therapy were involved in her care. Her drain and Finn catheter removed on postoperative day 2. By postop day 3 she was eating, ambulating, emptying her bladder her pain was under control with by mouth pain medicine. Her wound remained clean dry and intact. She was afebrile stable vital signs. She was therefore allowed to be discharged home. Time Spent with Patient Time attestation: Total time spent providing and/or coordinating discharge services: Discharge Plan Discharge Attending physician on discharge: Navdeep Bui Consulting providers: Destin Duvall; Sho Mehta Discharging Clinician: Joshua Haddad Patient Disposition: Home, Self-Care Activity: may shower Diet: regular Wound Care Instructions: incision open to air Discharge Instructions: Ok to shower on POD # 3. Keep incision open to the air Patient Instructions: Antibiotic Form Stand Alone Forms: General Discharge Information Follow-up/Referrals: Navdeep Bui MD [Physician] - (F/u with Dr. Bui in 6 weeks with xrays) Discharge Medications: New cyclobenzaprine 10 mg Tablet 10 mg PO TID PRN (Reason: Muscle Spasms) Qty: 45 0RF hydrocodone-acetaminophen 5-325 mg Tablet 1 tablet PO Q6-8H PRN (Reason: Mild Pain (1-3)) Qty: 50 0RF Continued atorvastatin 80 mg tablet 80 mg PO QHS Qty: 90 1RF cyclobenzaprine 10 mg tablet 10 mg PO TID PRN (Reason: muscle spasm) Qty: 90 1RF potassium chloride 20 mEq tablet extended release 20 meq PO DAILY Qty: 90 1RF sertraline 100 mg tablet 100 mg PO DAILY Qty: 90 1RF Patient Comments: HS zolpidem 10 mg tablet 10 mg PO QHS Qty: 30 2RF No Action alprazolam 0.25 mg tablet 0.25 mg PO BID-TID PRN (Reason: anxiety) Qty: 60 2RF Date of admission: 02/27/23 15:48 Primary Care Provider: Norma Galvez Admitting Provider: Navdeep Bui Attending physician on admission: Joshua Haddad Condition: Improved
== END 2023-03-02 16:16 | disposition home or self-care (01) | DRG 460 ==
LOC: ANH2MED 16:03
PROVIDERS: Neurological Surgery; Admitting Provider Neurological Surgery; PCP Family Medicine; Visit Provider Neurological Surgery
PROC: 0SG00AJ Fusion of Lumbar Vertebral Joint with Interbody Fusion Device, Posterior Approach, Anterior Column, Open Approach (ICD-10-PCS; CPT 22612; principal; 2023-02-27 11:30)
DX: M47.816 Spondylosis without myelopathy or radiculopathy, lumbar region (principal); M43.16 Spondylolisthesis, lumbar region; E78.2 Mixed hyperlipidemia; E66.9 Obesity, unspecified; Z96.652 Presence of left artificial knee joint; Z68.34 Body mass index [BMI] 34.0-34.9, adult; Z90.49 Acquired absence of other specified parts of digestive tract; Z87.891 Personal history of nicotine dependence
CPT/HCPCS: 36415; 82565; 84460; 85049; 97116; 97161; 97165; 97530; 97535; 99199; A9270; C1713; J0330; J0690; J1100; J1170; J1650; J2250; J2405; J2704; J3010; J3480; J7120

== ENCOUNTER 2023-03-19 12:54 | Outpatient (CLI) | payer MEDICARE, SELFPAY ==
--- NOTE | ~2023-03-19 | XR_ITS ---
XR lumbar spine 2-3V DATE: 03/19/2023 13:25 INDICATION: 3 weeks postoperative TECHNIQUE: Standing AP, lateral, coned lateral lumbosacral views COMPARISON: 11/26/2018 lumbar spine FINDINGS: Pedicle screws and rods are noted bilaterally at L4-5, in addition to interbody device. Interbody device is situated at the very posterior aspect of the L4-5 interspace and may project slig htly posterior to the L5 vertebral margin. There is grade 1 anterolisthesis at L4-5. No fracture or bone destruction of the lumbar spine is noted. Mild degenerative disc disease at L1-2 and L3-4. Moderately severe degenerative disc disease at L5-S1 . The sacroiliac joints are intact. Possible calcified splenic artery aneurysm. Abdominal aortic calcification. IMPRESSION: Status post interbody and posterior spinal fusion at L4-5 Multilevel degenerative disc disease, most prominent at L5-S1 Reviewed, dictated and finalized at location A.
== END 2023-03-19 12:55 | disposition home or self-care (01) ==
PROVIDERS: PCP Family Medicine; Visit Provider Neurological Surgery
DX: Z98.1 Arthrodesis status (principal); M51.36 Other intervertebral disc degeneration, lumbar region
CPT/HCPCS: 72100

== ENCOUNTER → 2023-04-19 10:47 | Outpatient (CLI) | payer MEDICARE, SELFPAY ==
--- NOTE | ~2023-04-19 | XR_ITS ---
EXAMINATION: XR abdomen/kub 1V DATE: 04/19/2023 11:10 INDICATION: Right upper quadrant abdominal pain. TECHNIQUE: A supine view of the abdomen on 2 radiographs was obtained. COMPARISON: CT abdomen and pelvis 06/16/2022 FINDINGS: There are no dilated loops of bowel. There is a small volume of stool in the colon. There a re phleboliths in the pelvis. There are changes of anterior and posterior fusion procedures in lumbar spine. IMPRESSION: 1. Normal bowel gas pattern. Reviewed, dictated and finalized at location L.
== END ==
PROVIDERS: PCP Family Medicine; Visit Provider Family Medicine
DX: R10.11 Right upper quadrant pain (principal)
CPT/HCPCS: 74018

== ENCOUNTER → 2023-04-20 10:04 | Outpatient (CLI) | payer MEDICARE, SELFPAY ==
--- NOTE | ~2023-04-20 | US_ITS ---
Limited Abdominal Sonogram: Real-time sonographic imaging of the right upper quadrant was performed. Clinical History: Right upper quadrant pain Findings: The liver appears normal with no evidence of solid mass lesion or bile duct dilatation. 1. 2 cm hepatic cyst noted. Main portal vein demonstrates normal direction of flow. The gallbladder is w ell distended, and contains small gallstone. The common bile duct measures 4 mm. The visualized panc reas, aorta, and IVC are unremarkable. Impression: Cholelithiasis. Reviewed, dictated and finalized at location M. Impression: Cholelithiasis.
== END ==
PROVIDERS: PCP Family Medicine; Visit Provider Family Medicine
DX: R10.11 Right upper quadrant pain (principal); K80.20 Calculus of gallbladder without cholecystitis without obstruction
CPT/HCPCS: 76705

== ENCOUNTER 2023-05-15 11:18 | Outpatient (CLI) | payer MEDICARE, SELFPAY ==
[2023-05-15 12:01] LABS: Amylase 78 U/L (30-110); Lipase 136 U/L (23-300)
== END 2023-05-15 11:19 | disposition home or self-care (01) ==
LOC: ANHSURGERY 11:22
PROVIDERS: PCP Family Medicine; Visit Provider Surgery
DX: Z01.818 Encounter for other preprocedural examination (principal); K80.20 Calculus of gallbladder without cholecystitis without obstruction
CPT/HCPCS: 36415; 82150; 83690; 86850; 86900; 86901

== ENCOUNTER 2023-05-18 03:45 | Day surgery (SDC) | payer MEDICARE, SELFPAY ==
[2023-05-10 11:05] VITALS: BMI 32.1
--- NOTE | 2023-05-10 11:30 | PC.NURSE ---
Report to the Outpatient Waiting Room, entrance under the green pavilion located off [facility], at time __10:00AM on date __05/18/23 . Planned Procedure Time: __12:00PM . Time changes happen often and if your time is changed the preop area will call you the afternoon before. - You and your visitor will be asked to self-screen and do not enter if you have any COVID symptoms. - A mask is optional within the hospital at this time. Patients may have clear liquids (water, carbonated beverages, clear teas, apple juice) until 3 hours prior to surgery with a maximum of 20 ounces. - No food from midnight until time of surgery. Take the following medications with a SIP of water the morning of surgery: __SERTRALINE AND ALPRAZOLAM & ZOFRAN NEEDED DO NOT STOP ANY OF YOUR OTHER PRESCRIPTION MEDICATIONS PRIOR TO SURGERY ?EXCEPT THE FOLLOWING Medications to discontinue per physician __NONE Date to take last dose Please no make-up, nail anguillan, hairspray, perfume, deodorant, or body powder the day of surgery. No jewelry (including any body piercings) or valuables the day of surgery, leave them at home. Please take a shower or bath the night before, or the morning of, surgery with an antibacterial soap. Wear comfortable, loose fitting clothing. - Jewelry must be removed prior to entering the operating room. Rings and piercings that are not removed may be cut off. - The hospital will not accept responsibility for valuables. - Please leave all valuables, including medications, at home the day of surgery. If you are going home after surgery, a licensed armored car driver must drive you home. - NO public transportation without another adult if you receive anesthesia. - We recommend that an adult stay with you for 24 hours following discharge. - We also recommend that you do not drive, make important decision, drink alcoholic beverages, or take any drugs that were not prescribed by your health care provider for at least 24 hours after your discharge time. Follow any additional instructions given to you from your surgeon. If you or anyone in your household have experienced Covid symptoms in the past week, please notify your surgeon or the nurse liaison at the phone number below for possible testing. Telephone instructions given to __PATIENT and asked if any additional questions and then verbalized understanding. Patient advised to call surgeon office or pre surgery nurse liaison [phone] if any additional questions.
[2023-05-18] VITALS (10 sets, daily range): BP systolic 115–148; BP diastolic 62–96; PULSE 73–87; RESP 15–21; TEMP 36.5–37.2; O2SAT 94–100
[2023-05-18] MEDS: KETOROLAC 15 MG/ML VIAL (*BKC) IV PUSH (10:31)
[2023-05-18] MEDS: ACETAMINOPHEN 500 MG TABLET 1000 MG PO (10:31)
[2023-05-18] MEDS: LACTATED RINGERS 1,000 ML 30 ML IV CONT ×2 (10:31→13:52)
--- NOTE | 2023-05-18 11:26 | WPDHPUPDATE1 ---
History and Physical Update Update Date/Time: 05/18/23 11:26 History and Physical has been reviewed, including an updated exam of the patient. There are NO changes in the patient's condition. Risks, benefits, and alternatives have been discussed and questions answered. Patient agrees to proceed with procedure.
--- NOTE | 2023-05-18 12:02 | WPDANESEPPF ---
Anes - Initial Pre Proc Eval Procedure: Operation Date: 05/18/23 12:00 Proposed Procedures p Laparoscopic Cholecystectomy Possible Open - See Reveles DO Date/Time: 05/18/23 12:02 Surgeon: See Reveles DO Pre Op Diagnosis: symptomatic cholelithiasis Patient Data Age: 68 Gender: F Height: 1.63 m Weight: 84.6 kg Last Vital Signs Temp 37.2 C 05/18/23 10:12 Pulse 87 05/18/23 10:12 Resp 18 05/18/23 10:12 BP 125/84 05/18/23 10:12 Pulse Ox 96 05/18/23 10:12 O2 Del Method Room Air 05/18/23 10:12 Allergies Allergy/AdvReac Type Severity Reaction Status Date / Time Sulfa (Sulfonamide Allergy Unknown Skin Verified 05/18/23 10:35 Antibiotics) Reaction/RASH Home Medications Medication Instructions Recorded Confirmed Type potassium chloride 20 mEq 20 meq PO DAILY #90 tabs 12/18/22 05/18/23 Rx tablet,extended release cyclobenzaprine 10 mg tablet 10 mg PO TID PRN Muscle Spasms #45 03/02/23 05/18/23 Rx tabs alprazolam 0.25 mg tablet 0.25 mg PO BID-TID PRN anxiety #60 04/10/23 05/18/23 Rx tabs atorvastatin 80 mg tablet 80 mg PO QHS #90 tabs 04/24/23 05/18/23 Rx zolpidem 10 mg tablet 10 mg PO QHS #30 tabs 04/24/23 05/18/23 Rx docusate sodium 100 mg capsule 100 mg PO DAILY PRN Constipation 05/10/23 05/18/23 History (Stool Softener) ondansetron 4 mg disintegrating 4 mg PO Q4-5H PRN Nausea 05/10/23 05/18/23 History tablet sertraline 100 mg tablet 100 mg PO QAM 05/10/23 05/18/23 History sertraline 50 mg tablet 50 mg PO QAM 05/10/23 05/18/23 History Patient hx anesthesia problems: post op nausea/vomiting Family hx anesthesia problems: none Results Review: All pre-operative results and documents have been reviewed as part of the pre-operative evaluation. [facility] Past Medical History Medical History Anxiety Cataract (~2015) Chronic midline low back pain without sciatica Hepatitis C antibody test negative (09/16/19) Major depressive disorder, recurrent, moderate Migraine Mixed hyperlipidemia Obesity PONV (postoperative nausea and vomiting) Pulmonary hypertension Surgical History Surgical History Fusion of lumbar spine H/O adenoidectomy (~1978) H/O breast augmentation (~1989) H/O colonoscopy H/O hemorrhoidectomy History of appendectomy (~1978) 1978 - Open appendectomy History of bilateral tubal ligation History of hysterectomy laparoscopic with da Char robot History of left knee replacement April 18, 2021 History of right inguinal hernia repair ~ 1984 - open right inguinal hernia repair x2 History of tonsillectomy (~1973) History of uterine suspension procedure (~1985) Family History Family History Father Diabetes mellitus Cerebrovascular accident Family history of stroke Grandparent Family history of glaucoma Mother Family history of elevated blood lipids Family history of malignant neoplasm Family history of pancreatic cancer Sibling Family history of elevated blood lipids Heart disease Social History Social History Social History: The patient lives with her . 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 The patient is a full code. The patient has 3 children. Patient is retired from [employer]. The patient is a former smoker. She quit in 2015. She does not use any marijuana alcohol or illicit drugs. Smoking packs per day: 1 Smoking cigarettes per day: 20.0 Years smoked: 35 Smoking pack-years: 35.00 Smoking status: Former smoker Tobacco type: cigarettes Second hand tobacco smoke exposure: Yes Smoking end date: 03/17/16 Alcohol intake: former Alcohol use details: STATES DRANK SOCIALLY IN THE PAST Substance use: never Substance use type: does not use Lack of
[2023-05-18] MEDS: ceFAZolin 2 GM/D5W 50 ML 2 GM/50 ML BAG IVPB (12:05)
[2023-05-18] MEDS: BUPIVACAINE/EPINEPHRINE 0.25% 50 ML VIAL 30 ML INFILTRATE (12:40)
--- NOTE | 2023-05-18 12:46 | W.PM.PROC2 ---
Procedure Note - Detailed Date of Procedure 05/18/23 Pre-op Diagnosis symptomatic cholelithiasis Post-op Diagnosis Same Procedure Performed Laparoscopic Cholecystectomy Surgeon See Reveles, DO Anesthesia General and Local (0.5% bupivacaine) Indications This is a 60-year-old woman who complains of intermittent abdominal pain over the past year. Pain is mostly located in the right upper quadrant. She has not noticed any particular foods that were causing her pain. She occasionally had pain 1st thing in the morning on an empty stomach. CT abdomen and pelvis was originally done and was normal except for a small hiatal hernia. Right upper quadrant ultrasound then showed evidence of cholelithiasis. Discussions were made with the patient about treatment options and decision was made to proceed with laparoscopic cholecystectomy, possible open. Findings Laparoscopic cholecystectomy was performed. The gallbladder was slightly dilated and contained gallstones. The cystic duct appeared normal in size. No other abnormalities noted. The gallbladder was removed and sent to the lab for pathology. Description of Procedure Procedure as well as risks, benefits, and alternatives were discussed with patient. Written consent was obtained and placed in chart prior to procedure. The patient was brought back to surgical suite. Patient was placed in supine position on operating table. Time-out was done to confirm patient and procedure. Patient was then intubated by the anesthesia department. Abdomen was prepped and draped in sterile fashion using chlorhexidine prep. 0.5% bupivacaine with epinephrine was infiltrated at each site of incision. A 5 millimeter incision was made near the umbilicus, and a 5 millimeter Optiview trocar was advanced through the abdominal layers under direct visualization. Once inside the abdominal cavity, carbon dioxide was insufflated to create a pneumoperitoneum. The camera was inserted and the abdomen was inspected. No immediate abnormalities were identified. The patient was placed in reverse Trendelenburg position and rotated slightly to the left. An 11 millimeter incision was made in the subxiphoid region, and an 11 millimeter trocar was inserted under direct visualization. Two 5 millimeter incisions were made in the right upper quadrant, and two 5 millimeter trocars were inserted under direct visualization. The gallbladder was identified and grasped at the fundus and retracted superiorly. It was then grasped at the infundibulum retracted laterally. Careful dissection around the neck of the gallbladder was performed using blunt dissection with a [place] grasper and hook electrocautery. The cystic duct was identified, and a window was created behind it. The cystic artery was also identified and a window was created behind it. The critical view of safety was identified, visualizing the cystic duct running directly into the neck of the gallbladder, and the cystic artery running directly into the wall of the gallbladder. A 5 millimeter clip panel flow machine operator was then used to place 2 clips proximally and 1 clip distally on both the cystic duct and cystic artery. They were then both transected using endoscopic scissors. Once safely away from the nya hepatitis, the gallbladder was dissected free from the liver bed using hook electrocautery. Hemostasis was achieved along the way. The gallbladder was removed completely and then removed through the subxiphoid port. The liver bed was then inspected. Hemostasis appeared adequate, and our clips appeared secure. The area was gently irrigated with sterile saline. No other abnormalities were seen. The patient was flattened out in bed, and 1 final inspection was made around the abdominal cavity. The subxiphoid port was removed, and a Omar Marilia cone was used to approximate the fascia with an 0-Vicryl simple interrupted suture. The remaining ports were then removed under direct visualization, the c
[2023-05-18] MEDS: ONDANSETRON INJ 4 MG/2 ML VIAL IV PUSH (13:51)
== END 2023-05-18 14:46 | disposition home or self-care (01) ==
PROVIDERS: PCP Family Medicine; Visit Provider Surgery
PROC: 0FT44ZZ Resection of Gallbladder, Percutaneous Endoscopic Approach (ICD-10-PCS; CPT 47562; principal; 2023-05-18 12:00)
DX: K80.10 Calculus of gallbladder with chronic cholecystitis without obstruction (principal); E78.2 Mixed hyperlipidemia; I27.20 Pulmonary hypertension, unspecified; F33.1 Major depressive disorder, recurrent, moderate; E66.9 Obesity, unspecified; Z68.32 Body mass index [BMI] 32.0-32.9, adult; Z98.1 Arthrodesis status; Z87.891 Personal history of nicotine dependence
CPT/HCPCS: 47562; 88304; A9270; J0690; J1100; J1170; J1885; J2250; J2371; J2405; J2704; J3010; J7030; J7120

== ENCOUNTER 2023-05-24 09:21 | Outpatient (CLI) | payer MEDICARE, SELFPAY ==
--- NOTE | ~2023-05-24 | XR_ITS ---
EXAMINATION: XR lumbar spine 2-3V DATE: 05/24/2023 09:40 INDICATION: Arthrodesis status TECHNIQUE: Anteroposterior and lateral views of the lumbar spine, and cone-down lateral view of the l umbosacral junction were obtained. COMPARISON: 03/19/2023 FINDINGS: There are changes of posterior fusion and laminectomy and interbody device placement at L4- 5. There are 6 mm of unchanged anterolisthesis of L4 on L5. The vertebral body heights are maintained . There is mild loss of intervertebral disc space height at L3-4 and moderate loss of disc space heig ht at L5-S1. There is no fracture. Surgical clips in the right upper quadrant are likely from prior c holecystectomy. Phleboliths are noted in the pelvis. There is calcified atherosclerosis. IMPRESSION: 1. Posterior and interbody fusion at L4-5 without significant change. Mild lumbar spondylosis. Reviewed, dictated and finalized at location L. IMPRESSION: 1. Posterior and interbody fusion at L4-5 without significant change. Mild lumb ar spondylosis.
== END 2023-05-24 09:22 | disposition home or self-care (01) ==
PROVIDERS: PCP Family Medicine; Visit Provider Neurological Surgery
DX: Z98.1 Arthrodesis status (principal); M43.06 Spondylolysis, lumbar region
CPT/HCPCS: 72100

== ENCOUNTER → 2023-06-04 10:34 | Outpatient (CLI) | payer MEDICARE, SELFPAY ==
--- NOTE | ~2023-06-04 | MR_ITS ---
MRI of the lumbar spine Clinical History: Arthrodesis Technique: Axial T2-weighted images, and sagittal T1-weighted, T2-weighted, and STIR images were acqu ired. COMPARISON: 03/22/2022 Findings: Patient is status post interval posterior interbody fusion from L4 to L5, bilateral rods an d transpedicular screws present, as well as interbody fusion device. There is L4 laminectomy defects. There is underlying grade 1 anterolisthesis of L4 over L5, measuring approximately 5 mm. No suspicio us bone marrow signal abnormality evident. At L1-L2, there is no disc bulge or herniation. There is mild facet arthropathy. No central canal rick nosis or neural foraminal narrowing. At L2-L3, there is minimal disc bulge and minimal facet arthropathy. No central canal stenosis or vishal ral foraminal narrowing. L3-L4, there is mild disc bulge and mild facet arthropathy. No central canal stenosis. There is minim al right neural foraminal narrowing. Left neural foramen preserved. At L4-L5, there is no disc bulge or herniation. No central canal stenosis. There is preservation of t he neural foramina. At L5-S1, there is minimal disc bulge with moderate facet arthropathy. No central canal stenosis. The re is mild bilateral neural foraminal narrowing. Paravertebral soft tissues are unremarkable aside from expected postoperative change. Impression: Posterior and interbody fusion at L4-L5, as detailed above. Mild degenerative spondylosis, as above. Reviewed, dictated and finalized at [facility]. Impression: Posterior and interbody fusion at L4-L5, as detailed above. Mild degenerative spondylosis, as above.
--- NOTE | ~2023-06-04 | CT_ITS ---
EXAMINATION: CT lumbar spine wo con DATE: 06/04/2023 11:20 INDICATION: Low back pain. TECHNIQUE: Computed tomography (CT) of the lumbar spine was performed without intravenous contrast. A utomated exposure control and iterative reconstruction technique were employed. The dose-length produ ct was 707.26 mGy-cm. COMPARISON: Lumbar spine MRI 06/04/2023 FINDINGS: There is calcified atherosclerosis of the aorta and many of the other arteries. There is 4 mm anterolisthesis of L4 on L5. There are changes of anterior and posterior fusion procedures at L4-L 5 with interbody devices and pedicle screws. There are changes of L4 laminectomy. Vertebral body heig hts are normal. There is moderately decreased disc height at L3-L4 and severely decreased disc at L5- template remodeling. The following disc levels are specifically discussed: L1-L2: The disc is bulging. There is mild bilateral facet joint osteoarthritis. There is mild bilater al neural foraminal stenosis. There is mild central canal stenosis. L2-L3: The disc is bulging. There is moderate and mild left facet joint osteoarthritis. There is mild bilateral neural foraminal stenosis. There is mild central canal stenosis. L3-L4: The disc is bulging. There is moderate bilateral facet joint osteoarthritis. There is mild jaycob ateral neural foraminal stenosis. There is mild central canal stenosis. L4-L5: There is no facet joint hypertrophy. There is no neural foraminal stenosis. There is no centra l canal stenosis. L5-S1: This is bulging. There is severe bilateral facet joint osteoarthritis. There is mild bilateral neural foraminal stenosis. There is mild central canal stenosis. IMPRESSION: 1. Anterior and posterior fusion procedures at L4-L5. 2. Severe lower lumbar spondylosis. Reviewed, dictated and finalized at location E.
== END ==
PROVIDERS: PCP Family Medicine; Visit Provider Neurological Surgery
DX: M43.06 Spondylolysis, lumbar region (principal); M43.26 Fusion of spine, lumbar region; Z98.1 Arthrodesis status
CPT/HCPCS: 72131; 72148

== ENCOUNTER 2023-12-18 10:20 | Outpatient (CLI) | payer MEDICARE, SELFPAY ==
--- NOTE | ~2023-12-18 | DEXA_ITS ---
Bone Density Report Name: TANIKA PÉREZ Age: 68 Sex: Female Ethnicity: White Date of : 1955 Indication: postmenopausal; screening for osteoporosis; height loss; history of glucocorticoids; hysterectomy; rheumatoid arthritis; Referring Provider: TRE SHAIKH Study: Bone densitometry was performed. Exam Date: December 18, 2023 Accession number: [id number] Bone Density: Region BMD T-score Z-score Classification Femoral Neck (Left) 0.714 -1.2 0.5 Osteopenia Total Hip (Left) 0.903 -0.3 1.1 Normal Femoral Neck (Right) 0.756 -0.8 0.9 Normal Total Hip (Right) 0.942 0.0 1.4 Normal Total Hip Mean 0.922 -0.2 1.3 Normal World Health Organization criteria for BMD impression classify patients as: Normal (T-score at or above -1.0), Osteopenia (T-score between -1.0 and -2.5), or Osteoporosis (T-score at or below -2.5). 10-year Fracture Risk(1): Major Osteoporotic Fracture 18% Hip Fracture 2.5% Reported Risk Factors: [place] (), Neck BMD=0.714, BMI=26.8, glucocorticoids, rheumatoid arthritis (1) FRAX(R) Version 3.08. Fracture probability calculated for an untreated patient. Fracture probability may be lower if the patient has received treatment. Clinical Information Provided by Patient: Has taken Glucocorticoids Has rheumatoid arthritis Has the following medical conditions: Hysterectomy Patient maximum height was 65 No regular weight bearing exercise Drinks caffeinated beverages Onset of menses at age 14 Number of children 3 Impression: The patient has low bone mass, based on the Left Femoral Neck T-score. The patient has an estimated ten-year risk of hip fracture of 2.5% and an estimated ten-year risk of major fracture of 18%, based on the WHO FRAX algorithm. The patient has risk factors, including: history of glucocorticoid therapy. Discussion: BONE DENSITY IS LOW AT ONE OR MORE SKELETAL SITES. This patient's lowest T-score is low at one or more skeletal sites. It meets the World Health Organization's (WHO) criteria for ?low bone mass? (T-score between -1.0 and -2.5). The patient's 10-year risk of fracture as calculated by FRAX is less than the threshold where pharmacological therapy is recommended by the National Osteoporosis Foundation (NOF). However, all treatment decisions require clinical judgment and consideration of individual patient factors, including patient preferences, comorbidities, previous drug use, risk factors not captured in the FRAX model (e.g., frailty, falls, vitamin D deficiency, increased bone turnover, interval significant decline in bone density) and possible under or overestimation of fracture risk by FRAX. The patient should follow a healthful lifestyle (good nutrition with adequate calcium and vitamin D, and appropriate weight-bearing exercise). Follow-Up
== END 2023-12-18 10:21 | disposition home or self-care (01) ==
PROVIDERS: PCP Family Medicine; Visit Provider Family Medicine
DX: M85.89 Other specified disorders of bone density and structure, multiple sites (principal); M81.0 Age-related osteoporosis without current pathological fracture
CPT/HCPCS: 77080

== ENCOUNTER 2024-04-18 12:07 | Outpatient (CLI) | payer MEDICARE, SELFPAY ==
--- NOTE | ~2024-04-18 | MMUS_ITS ---
EXAMINATION: MM diag ravi implant BI w ralf, US breast RT limited HISTORY: Dense breast tissue by clinical examination. TECHNIQUE: Additional 3-D tomosynthesis images of the breasts were performed and synthetic 2-D images were generated. CAD analysis was submitted and interpreted. High resolution Limited right breast ult rasound was performed. COMPARISON: Comparison to multiple prior studies sequentially, with oldest reviewed study dated 02/28. BREAST PARENCHYMAL COMPOSITION: Not dense: There are scattered areas of fibroglandular density. FINDINGS: MAMMOGRAPHIC FINDINGS: There are bilateral subglandular silicone implants. There are no suspicious masses, calcifications or architectural distortion in either breast to suggest malignancy. ULTRASOUND: Limited right breast ultrasound: Normal heterogeneous echotexture without focal solid or cystic mass. IMPRESSION: 1. No evidence for malignancy in either breast. 2. Routine yearly screening mammogram and regular clinical breast examination are recommended. BI-RADS Category 1: Negative Reviewed, dictated and finalized at location B. IMPRESSION: 1. No evidence for malignancy in either breast. 2. Routine yearly screening mammogram and regular clinical breast examination a re recommended. BI-RADS Category 1: Negative
== END 2024-04-18 12:08 | disposition home or self-care (01) ==
LOC: ANHIMG 12:09
PROVIDERS: PCP Family Medicine; Visit Provider Family Medicine
DX: R92.8 Other abnormal and inconclusive findings on diagnostic imaging of breast (principal); N63.10 Unspecified lump in the right breast, unspecified quadrant
CPT/HCPCS: 76642; 77062; 77066; G0279

== ENCOUNTER 2025-01-05 07:20 | Outpatient (CLI) | payer MEDICARE, SELFPAY ==
[2024-12-24 15:35] VITALS: BMI 26.2
--- NOTE | 2024-12-24 15:37 | PC.NURSE ---
Pre Radiology instructions Report to the outpatient [facility] on date __01/05/25___ at time ___7:30AM____ for procedure Time: __9:30AM__ YOU MAY BE MONITORED AT HOSPITAL FOR UP TO 4 HOURS AFTER YOUR PROCEDURE. A visitor will be allowed to accompany the patient into the hospital. You and your visitor will be asked to self-screen and do not enter if you have any COVID symptoms. A mask is OPTIONAL within the hospital. Patients are to have no food or drink 6 hours prior to procedure time Driving will be restricted after the procedure, you must have a person to drive you home. Labs will be drawn in preop area and once reviewed, you will be taken to radiology area for procedure. When the procedure is completed, you will be taken to outpatient where you will be monitored for several hours. You may have one visitor in this area. Other than holding anti-coagulants, patient may take other medication(s) as scheduled. Prior to your appointment date patients are instructed to hold anti-coagulants after discussing with ordering provider to stop. If unable to discontinue anti-coagulants please notify radiologist. ? No aspirin or warfarin (Coumadin) for 7 days prior to the procedure. ? No clopidogrel (Plavix), ticagrelor (Brilinta), prasugrel (Effient) or dabigatran (Pradaxa) for 5 days prior to the procedure. ? No rivaroxaban (Xarelto), apixaban (Eliquis), dipyridamole (Aggrenox or Persantine) or cilostazol (Pletal) for 2 days prior to the procedure. Medications to discontinue per physician: ___NONE Date to take last dose: Please leave all valuables, including medications, at home the day of procedure. The hospital will not accept responsibility for valuables. Wear comfortable, loose fitting clothing.? Follow any additional instructions given to you from ordering provider. Telephone instructions given to ___PATIENT and asked if any additional questions and then verbalized understanding. Patient advised to call scheduling provider office or registration scheduling [phone] if any additional questions.
[2025-01-05] VITALS (8 sets, daily range): BP systolic 107–124; BP diastolic 58–74; PULSE 60–72; RESP 14–16; TEMP 36.4; O2SAT 96–98
--- NOTE | ~2025-01-05 | CT_ITS ---
EXAMINATION: XR myelogram spine lumbosacral, CT lumbar spine w con DATE: 01/05/2025 09:56 INDICATION: TECHNIQUE: Informed consent was obtained from the patient. Risks and benefits including bleeding, i nfection, spinal headache and nerve root injury were discussed with the patient. The patient agreed to proceed. Time out procedure was performed. [employer] radiograph was obtained. An entry site was cho sen at the L3-L4 level. A central approach was used. Standard sterile prep was done with Betadine. Entry site was infiltrated subcutaneously with 2 cc 1% lidocaine. A 3.5 22G spinal needle was then inserted into the spinal canal. 17 mL Omnipaque 180 were then injected into the thecal sac with int ermittent fluoroscopic observation confirming intrathecal administration. Frontal, lateral and oblique fluoroscopic images of the lumbar spine were then acquired. The patient was then transferred to CT scan for spiral CT of the lumbar spine. Following this patient was trans ferred to recovery area for 2 hours of observation. There are no immediate complications. Coronal a nd sagittal reformatted images of the lumbar spine CT were also reviewed. FINDINGS: L4 laminectomy. Instrumented L4-L5 anterior and posterior spinal fusion with interbody fusion device and bilateral vertical clara and pedicle screw fixation. No interval change in 4 mm anterolisthesis L4 on L5. The posterior margin of the interbody fusion device projects and additional 2 mm posterior to the more posterior superior endplate of L5. Normal alignment and more cephalad lumbar and lower thora cic spine. Vertebral body heights are normal. Mild/moderate disc height loss with vacuum phenomena at L3-L4 and moderate to severe disc height loss with vacuum phenomena and right-sided predominance fif th right-sided 2 degenerative endplate remodeling at L5-S1. Paravertebral soft tissues are unremarkab le. The following disc levels are specifically discussed: T11-T12: Disc is mildly bulging. There is mild right and moderate left facet joint osteoarthritis. Th ere is no neural foraminal stenosis. There is no central canal stenosis. T12-L1: The disc does not extend beyond the endplate margin. There is mild left and moderate right fa cet joint osteoarthritis. There is no neural foraminal stenosis. There is no central canal stenosis. L1-L2: Disc is mildly bulging. There is mild bilateral facet joint osteoarthritis. There is minimal b ilateral neural foraminal stenosis. There is minimal central canal stenosis. L2-L3: Disc is mildly bulging. There is mild left and moderate right facet joint osteoarthritis. Ther e is mild bilateral neural foraminal stenosis. There is mild central canal stenosis. L3-L4: Disc is bulging. There is moderate bilateral facet joint osteoarthritis. There is mild bilater al neural foraminal stenosis. There is mild central canal stenosis. L4-L5: Interbody fusion device at the disc space which mildly indents the left paracentral anterior t hecal sac. Posterior spinal fusion procedure with bilateral vertical clara and pedicle screw fixation. Posterior decompression with laminectomy and resection of the lateral inferior articular processes of L4. The interbody fusion device contributes to mild left neural foraminal stenosis. There is no cent ral canal stenosis. L5-S1: Disc is bulging. There is severe bilateral facet joint osteoarthritis. There is mild bilateral neural foraminal stenosis. There is minimal central canal stenosis. IMPRESSION: 1. Moderate to severe lower lumbar spondylosis with L4 laminectomy and combined instrumented anterior and posterior spinal fusion at L4-L5. Reviewed, dictated and finalized at location A. IMPRESSION: 1. Moderate to severe lower lumbar spondylosis with L4 laminectomy and combined instrumented anterior and posterior spinal fusion at L4-L5.
[2025-01-05 08:11] LABS: Mean Platelet Volume 10.6 fl (7.4-10.4); Platelet Count Result 182 k/mm3 (150-375)
[2025-01-05 08:25] LABS: Prothrombin Time 13.3 Seconds (11.1-14.7)
== END 2025-01-05 11:50 | disposition home or self-care (01) ==
PROVIDERS: PCP Family Medicine; Referring Provider Orthopaedic Surgery Orthopaedic Surgery of the Spine; Visit Provider Radiology Diagnostic Radiology
DX: Z01.818 Encounter for other preprocedural examination (principal); M47.816 Spondylosis without myelopathy or radiculopathy, lumbar region; Z98.1 Arthrodesis status; Z98.890 Other specified postprocedural states
CPT/HCPCS: 36415; 62304; 72132; 85049; 85610; Q9965